=== PATIENT | male | born 1940 | race Caucasian/White ===

== ENCOUNTER 2020-05-18 13:15 | Outpatient (REF) | payer MEDICARE, SELFPAY ==
[2020-05-18 13:30] LABS: Glucose Urine UA NEG (NEG); Leukocyte Esterase Urine NEG (NEG); Nitrite Urine NEG (NEG); Urine Blood 3+ (NEG); Urine Ketones NEG (NEG); Urine Protein 1+ MG/DL (NEG-TRACE)
[2020-05-18 13:34] LABS: Appearance Urine HAZY; Color Urine DARK YELLOW
[2020-05-18 13:58] LABS: Bacteria Urine TRACE /LPF; RBC Urine TNTC /HPF (0); WBC Urine 0-2 /HPF (0-4)
== END 2020-05-18 13:16 | disposition home or self-care (01) ==
LOC: HO.LNP 13:15
PROVIDERS: Visit Provider Family Medicine
DX: R30.0 Dysuria (principal)
CPT/HCPCS: 81001; 87086

== ENCOUNTER 2020-07-17 18:50 | Outpatient (REF) | payer MEDICARE, SELFPAY ==
[2020-07-17 18:59] LABS: Glucose Urine UA NEG (NEG); Leukocyte Esterase Urine 2+ (NEG); Nitrite Urine POS (NEG); Specific Gravity - Urine 1.015 (1.005-1.025); Urine Blood 2+ (NEG); Urine Ketones 15 MG/DL (NEG); Urine Protein TRACE MG/DL (NEG-TRACE)
[2020-07-17 19:02] LABS: Appearance Urine CLOUDY; Color Urine YELLOW
[2020-07-17 19:09] LABS: Bacteria Urine 4+ /LPF; Squamous Epithelial Cell Urine 1+ /LPF
== END 2020-07-17 18:51 | disposition home or self-care (01) ==
LOC: HO.LNP 18:50
PROVIDERS: Visit Provider Family Medicine
DX: R30.0 Dysuria (principal)
CPT/HCPCS: 81001; 87086; 87088; 87186

== ENCOUNTER 2020-07-20 07:08 | Emergency (ER) | payer MEDICARE, SELFPAY ==
[2020-07-20 07:33] VITALS: BP 127/57; PULSE 94; RESP 16; TEMP 37.7; O2SAT 94; BMI 34.4
--- NOTE | 2020-07-20 08:21 | ED.MALEGU ---
HPI - Male Genitourinary General Chief complaint: Urogenital-Male Stated complaint: uti,fever Time Seen by Provider: 07/20/20 08:18 Source: patient and old records reviewed Mode of arrival: ambulatory Limitations: no limitations History of Present Illness HPI Narrative: dx with UTI on 07/17/20 started on bactrim culture grew E. Coli resistant to bactrim but susceptible to Ceftriaxone c/o fevers still MD Complaint: dysuria Onset (ago): day(s) (3) Duration: constant Severity: mild Quality: burning Relieving factors: none Exacerbating factors: none Context: new medication Associated symptoms: Reports fever and nausea/vomiting Related Data Home Medications Medication Instructions Recorded Confirmed metoprolol succinate 100 mg 150 mg PO BID 05/18/20 tablet,extended release 24 hr nifedipine 30 mg tablet,extended 30 mg PO DAILY 05/18/20 release pantoprazole 40 mg tablet,delayed 40 mg PO DAILY 05/18/20 release simvastatin 80 mg tablet 80 mg PO BEDTIME 05/18/20 Previous Rx's Medication Instructions Recorded sulfamethoxazole 800 1 tab PO Q12H 10 Days #20 tab 07/17/20 mg-trimethoprim 160 mg tablet tamsulosin 0.4 mg capsule 0.8 mg PO DAILY 30 Days #60 cap 07/17/20 cefuroxime axetil 250 mg PO BID 10 Days #20 tab 07/20/20 ondansetron 4 mg PO Q8H PRN #20 tab 07/20/20 Allergies Allergy/AdvReac Type Severity Reaction Status Date / Time morphine [MORPHINE] Allergy Severe CONFUSION Unverified 04/23/20 16:07 oxycodone [OXYCODONE] Allergy Severe CONFUSION Unverified 04/23/20 16:07 hydrochlorothiazide Allergy Mild MUSCLE Unverified 04/23/20 16:07 [Hydrochlorothiazide] CRAMPS, leg cramps lisinopril [From Zestril] Allergy Mild COUGH Unverified 04/23/20 16:07 amlodipine [From Norvasc] AdvReac Mild DIZZINESS Unverified 04/23/20 16:07 irbesartan [From Avapro] AdvReac Mild DIZZINESS Unverified 04/23/20 16:07 Review of Systems Review of Systems: Constitutional : pos Fever, pos Chills ENT/Mouth : No sore throat Eyes: No Eye Pain, No Swelling, No Redness Cardiovascular : No Chest Pain, No SOB Respiratory : No Cough, No Sputum, No Wheezing Gastrointestinal : pos Nausea, no Vomiting, No Diarrhea, no abdominal pain Genitourinary : positive Dysuria, positive urinary frequency, no Hematuria, no Flank Pain, positive hesitancy Musculoskeletal : No joint pain, No Myalgias Skin : No Skin Lesions, No rash Neuro : No Weakness, No Numbness, No Headache Psych : No Anxiety/Panic, No Depression Heme/Lymph: No Bruising, No Lymphadenopathy Endocrine : No Polyuria, No Polydipsia All other systems reviewed and are negative [facility] Past Medical History Attestation statement: The following information was validated with the patient. Medical History BPH (benign prostatic hyperplasia) CAD (coronary artery disease) High cholesterol UTI (urinary tract infection) Surgical History S/P triple vessel bypass Social History Social History Smoking Status: Former smoker Use of substances other than those prescribed or required for medical reasons: No Advance Directives: No Advance Directives Information Provided: Yes Physical Exam Vital Signs: Vital Signs: Last Vital Signs Temp 98.6 F 07/20/20 09:08 Pulse 76 07/20/20 09:08 Resp 16 07/20/20 09:08 BP 127/56 L 07/20/20 09:08 Pulse Ox 95 07/20/20 09:08 Body Mass Index 34.4 Appearance: Alert. Oriented X3. No acute distress. Eyes: Pupils equal, round and reactive to light. ENT: Pharynx normal. Neck: Normal inspection. Neck supple. CVS: Normal heart rate and rhythm. Pulses normal. Respiratory: No respiratory distress. Breath sounds normal. Abdomen: Soft and non-tender. Back: no CVA ttp Skin: Skin warm and dry. Normal skin color. Normal skin turgor. Extremities: No lower extremity edema. No calf ttp Neuro: Oriented X 3. No motor deficit. No sensory deficit. Course Course Course Narrative: patient has no signs of sepsis, negative, lactic acid, feels better can take oral medications, given reasons to return MDM - Male Genitourinary MDM Narrative Medical decision making narrative: 80 yo male with nausea, dysuria and on bactrim since 07/17 but culture R - still with fevers and symptoms will need labs, cultures, UA, IV Ceftriaxone, dispo per results and findings. Lab Data Result diagrams: 07/20/20 08:46 07/20/20 08:46 Labs: Lab Results 07/20/20 07/20/20 07/20/20 Range/Units 08:46 08:46 08:46 WBC 11.1 H (4.8-10.8) X10*3/uL RBC 4.43 L (4.60-5.80) X10*6/uL Hgb 13.7 L (14.0-18.0) g/dl Hct 39.3 L (42-52) % MCV 88.7 (80-98) fL MCH 30.9 (27.0-33.0) pg MCHC 34.9 (31.0-36.0) g/dl RDW 13.3 (11.0-16.0) % Plt Count 147 L (160-400) X10*3/uL MPV 9.7 (9.4-12.4) fL Immature Gran % (Auto) 0.6 H (0.0-0.4) % Neut % (Auto) 86.0 H (45-73) % Lymph % (Auto) 4.1 L (20-40) % [place] % (Auto) 9.0 (2-11) % Eos % (Auto) 0.1 (0-4) % Baso % (Auto) 0.2 (0-2) % Lymph # (Auto) 0.5 L (1.2-4.9) X10*3/uL [place] # (Auto) 1.0 (0.1-1.2) X10*3/uL Eos # (Auto) 0.0 (0.0-0.4) X10*3/uL Baso # (Auto) 0.0 (0.0-0.2) X10*3/uL Abs Immat Gran (auto) 0.07 H (0.00-0.03) X10*3/uL Absolute Neuts (auto) 9.5 H (2.0-8.3) X10*3/uL Absolute Nucleated RBC 0.000 (0.0-0.012) X10*3/uL Nucleated RBC % (auto) 0.0 (0.0-0.2) /100WBC Smear Tech's Comments VERIFIED Hold Blue Top SEE NOTE Sodium 136 (135-145) mmol/L Potassium 3.8 (3.3-5.1) mmol/l Chloride 102 (96-108) mmol/L Carbon Dioxide 23 (22-29) mmol/L Anion Gap 15 (12-20) BUN 25 H (9-16) mg/dL Creatinine 1.44 H (0.5-1.4) mg/dL Estim Creat Clear Calc 50.5 Estimated GFR 47 Random Glucose 127 H (60-115) mg/dL Lactic Acid (0.5-2.0) mmol/L Calcium 8.3 L (8.4-10.2) mg/dL Magnesium 2.1 (1.6-2.6) mg/dL Total Bilirubin 1.9 H (0.0-1.0) mg/dL Direct Bilirubin 0.8 H (0.0-0.5) mg/dL AST 58 H (5-37) U/L ALT 36 (0-40) U/L Alkaline Phosphatase 161 H (39-117) U/L Total Protein 6.1 L (6.5-8.0) g/dL Albumin 3.7 (3.5-5.0) g/dL Urine Color Urine Appearance Urine pH (5.0-8.0) Ur Specific [place] (1.005-1.025) Urine Protein (NEG-TRACE) MG/DL Urine Glucose (UA) (NEG) MG/DL Urine Ketones (NEG) MG/DL Urine Blood (NEG) Urine Nitrite (NEG) Ur Leukocyte Esterase (NEG) Urine RBC (0) /HPF Urine WBC (0-4) /HPF Ur Squamous Epith Cells /LPF Urine Bacteria /LPF Urine Mucus /LPF 07/20/20 07/20/20 Range/Units 08:46 09:28 WBC (4.8-10.8) X10*3/uL RBC (4.60-5.80) X10*6/uL Hgb (14.0-18.0) g/dl Hct (42-52) % MCV (80-98) fL MCH (27.0-33.0) pg MCHC (31.0-36.0) g/dl RDW (11.0-16.0) % Plt Count (160-400) X10*3/uL MPV (9.4-12.4) fL Immature Gran % (Auto) (0.0-0.4) % Neut % (Auto) (45-73) % Lymph % (Auto) (20-40) % [place] % (Auto) (2-11) % Eos % (Auto) (0-4) % Baso % (Auto) (0-2) % Lymph # (Auto) (1.2-4.9) X10*3/uL [place] # (Auto) (0.1-1.2) X10*3/uL Eos # (Auto) (0.0-0.4) X10*3/uL Baso # (Auto) (0.0-0.2) X10*3/uL Abs Immat Gran (auto) (0.00-0.03) X10*3/uL Absolute Neuts (auto) (2.0-8.3) X10*3/uL Absolute Nucleated RBC (0.0-0.012) X10*3/uL Nucleated RBC % (auto) (0.0-0.2) /100WBC Smear Tech's Comments Hold Blue Top Sodium (135-145) mmol/L Potassium (3.3-5.1) mmol/l Chloride (96-108) mmol/L Carbon Dioxide (22-29) mmol/L Anion Gap (12-20) BUN (9-16) mg/dL Creatinine (0.5-1.4) mg/dL Estim Creat Clear Calc Estimated GFR Random Glucose (60-115) mg/dL Lactic Acid 1.0 (0.5-2.0) mmol/L Calcium (8.4-10.2) mg/dL Magnesium (1.6-2.6) mg/dL Total Bilirubin (0.0-1.0) mg/dL Direct Bilirubin (0.0-0.5) mg/dL AST (5-37) U/L ALT (0-40) U/L Alkaline Phosphatase (39-117) U/L Total Protein (6.5-8.0) g/dL Albumin (3.5-5.0) g/dL Urine Color YELLOW Urine Appearance CLOUDY Urine pH 6.0 (5.0-8.0) Ur Specific [place] 1.025 (1.005-1.025) Urine Protein TRACE (NEG-TRACE) MG/DL Urine Glucose (UA) NEG (NEG) MG/DL Urine Ketones 5 (NEG) MG/DL Urine Blood 1+ H (NEG) Urine Nitrite POS H (NEG) Ur Leukocyte Esterase 2+ H (NEG) Urine RBC 0-2 (0) /HPF Urine WBC 76-150 H (0-4) /HPF Ur Squamous Epith Cells NONE /LPF Urine Bacteria 3+ /LPF Urine Mucus TRACE /LPF Discharge Plan Discharge Clinical Impression: Urinary tract infection Qualifiers: Urinary tract infection type: acute cystitis Hematuria presence: with hematuria Qualified Code(s): N30.01 - Acute cystitis with hematuria Patient Disposition: Home, Self-Care Additional Instructions: return to ED for any worsening symptoms or concerns STOP the bactrim it will not treat your infection. return for fevers, vomiting, not feeling better, and cannot tolerate antibiotics (ceftin). Prescriptions: New ondansetron 4 mg tablet,disintegrating 4 mg PO Q8H PRN (Reason: nausea and vomiting) Qty: 20 RF: 0 cefuroxime axetil 250 mg tablet 250 mg PO BID 10 Days Qty: 20 RF: 0 No Action metoprolol succinate 100 mg tablet extended release 24 hr 150 mg PO BID RF: 0 pantoprazole 40 mg tablet,delayed release (DR/EC) 40 mg PO DAILY RF: 0 simvastatin 80 mg tablet 80 mg PO BEDTIME RF: 0 nifedipine 30 mg tablet extended release 30 mg PO DAILY RF: 0 tamsulosin 0.4 mg capsule 0.8 mg PO DAILY 30 Days Qty: 60 RF: 2 sulfamethoxazole-trimethoprim [Bactrim DS] 800-160 mg tablet 1 tab PO Q12H 10 Days Qty: 20 RF: 0 Referrals: Yfn Tran MD [Primary Care Provider] - 2 days (if not better)
[2020-07-20] MEDS: ondansetron HCL 4 MG/2 ML VIAL IVPUSH (09:01)
[2020-07-20] MEDS: Acetaminophen 325 MG TABLET 650 MG PO (09:01)
[2020-07-20 09:02] LABS: Basophils Percent Auto 0.2 % (0-2); Eosinophils Percent Auto 0.1 % (0-4); Hematocrit 39.3 % (42-52); Imm Gran Abs Auto 0.07 X10*3/uL (0.00-0.03); Imm Gran Pct Auto 0.6 % (0.0-0.4); Lymphocytes Absolute Auto 0.5 X10*3/uL (1.2-4.9); Lymphocytes Percent Auto 4.1 % (20-40); MANUAL DIFF FLAG SCAN; Mean Corpuscular HGB Conc 34.9 g/dl (31.0-36.0); Mean Corpuscular Hemoglobin 30.9 pg (27.0-33.0); Mean Corpuscular Volume 88.7 fL (80-98); Mean Platelet Volume 9.7 fL (9.4-12.4); Neutrophils Absolute Auto 9.5 X10*3/uL (2.0-8.3); Platelet Count 147 X10*3/uL (160-400); Red Blood Count 4.43 X10*6/uL (4.60-5.80); Red Cell Distribution Width 13.3 % (11.0-16.0); SCAN SMEAR FLAG 1; White Blood Count 11.1 X10*3/uL (4.8-10.8)
[2020-07-20] MEDS: cefTRIAXone sodium 1 GM in 0.9 % Sodium Chloride 50 ML IV (09:02)
[2020-07-20] MEDS: 0.9 % Sodium Chloride 1,000 ML 999 ML IVCONT (09:02)
[2020-07-20 09:06] LABS: Hemoglobin 13.7 g/dl (14.0-18.0)
[2020-07-20 09:08] VITALS: BP 127/56; PULSE 76; RESP 16; TEMP 37; O2SAT 95
[2020-07-20 09:30] LABS: Alanine Aminotransferase 36 U/L (0-40); Albumin Level 3.7 g/dL (3.5-5.0); Alkaline Phosphatase 161 U/L (39-117); Anion Gap 15 (12-20); Aspartate Amino Transferase 58 U/L (5-37); Bilirubin Direct 0.8 mg/dL (0.0-0.5); Bilirubin Total 1.9 mg/dL (0.0-1.0); Blood Urea Nitrogen 25 mg/dL (9-16); Calcium 8.3 mg/dL (8.4-10.2); Carbon Dioxide 23 mmol/L (22-29); Chloride 102 mmol/L (96-108); Creatinine Clr Calc Pharmacy 50.5; Estimated Glomerular Filt Rate 47; Glucose Random 127 mg/dL (60-115); Magnesium 2.1 mg/dL (1.6-2.6); Potassium 3.8 mmol/l (3.3-5.1); Sodium 136 mmol/L (135-145); Total Protein 6.1 g/dL (6.5-8.0)
[2020-07-20 09:36] LABS: Appearance Urine CLOUDY; Color Urine YELLOW; Glucose Urine UA NEG (NEG); Leukocyte Esterase Urine 2+ (NEG); Nitrite Urine POS (NEG); Specific Gravity - Urine 1.025 (1.005-1.025); Urine Blood 1+ (NEG); Urine Ketones 5 MG/DL (NEG); Urine Protein TRACE MG/DL (NEG-TRACE)
[2020-07-20 09:44] LABS: Bacteria Urine 3+ /LPF; Mucus Urine TRACE /LPF; RBC Urine 0-2 /HPF (0)
[2020-07-20 09:46] LABS: SLIDE REVIEW VERIFIED
== END 2020-07-20 11:14 | disposition home or self-care (01) ==
PROVIDERS: Emergency Provider Emergency Medicine; PCP Family Medicine
DX: N30.01 Acute cystitis with hematuria (principal); I10 Essential (primary) hypertension
CPT/HCPCS: 36415; 80048; 80076; 81001; 83605; 83735; 85025; 87040; 87077; 87086; 87088; 87186; 96361; 96365; 96374; 96375; 99284; J0696; J2405

== ENCOUNTER 2020-07-21 09:45 | Inpatient (IN) | payer MEDICARE, SELFPAY ==
[2020-07-21] VITALS (7 sets, daily range): BP systolic 137–172; BP diastolic 50–75; PULSE 73–87; RESP 15–20; TEMP 36.4–37.2; O2SAT 95–96; BMI 34.4
--- NOTE | 2020-07-21 10:02 | ED.RECABL ---
HPI - Recheck/Abnormal Lab/Rx General Chief Complaint: Recheck/Abnormal Lab/Rx Stated Complaint: abnormal labs Time Seen by Provider: 07/21/20 10:02 Source: patient Mode of arrival: ambulatory Limitations: no limitations History of Present Illness HPI narrative: patient seen yesterday with fever and UTI and hematuria Now with blood cultures positive for gram negative rods. Last night had fever to 102, frequency and incontinence Initial visit (ago): day(s) Initial visit for: other (urinary tract infection) Description of abnormal result: gram negative rods in the blood Associated symptoms: fever and chills Related Data Home Medications Medication Instructions Recorded Confirmed metoprolol succinate 100 mg 150 mg PO BID 05/18/20 07/21/20 tablet,extended release 24 hr pantoprazole 40 mg tablet,delayed 40 mg PO DAILY 05/18/20 07/21/20 release simvastatin 80 mg tablet 80 mg PO BEDTIME 05/18/20 07/21/20 aspirin 81 mg PO DAILY 07/21/20 07/21/20 Previous Rx's Medication Instructions Recorded sulfamethoxazole 800 1 tab PO Q12H 10 Days #20 tab 07/17/20 mg-trimethoprim 160 mg tablet tamsulosin 0.4 mg capsule 0.8 mg PO DAILY 30 Days #60 cap 07/17/20 cefuroxime axetil 250 mg PO BID 10 Days #20 tab 07/20/20 ondansetron 4 mg PO Q8H PRN #20 tab 07/20/20 Allergies Allergy/AdvReac Type Severity Reaction Status Date / Time morphine [MORPHINE] Allergy Severe CONFUSION Verified 07/21/20 11:24 oxycodone [OXYCODONE] Allergy Severe CONFUSION Verified 07/21/20 11:24 hydrochlorothiazide Allergy Mild MUSCLE Verified 07/21/20 11:24 [Hydrochlorothiazide] CRAMPS, leg cramps lisinopril [From Zestril] Allergy Mild COUGH Verified 07/21/20 11:24 amlodipine [From Norvasc] AdvReac Mild DIZZINESS Verified 07/21/20 11:24 irbesartan [From Avapro] AdvReac Mild DIZZINESS Verified 07/21/20 11:24 Review of Systems Constitutional: Constitutional: Reports no additional constitutional complaints Eyes: Eyes: Reports no additional eye complaints ENT: Denies dizziness Cardiovascular: Cardiovascular: Reports no additional cardiovascular complaints Respiratory: Respiratory: Reports as per HPI Gastrointestinal: Gastrointestinal: Reports no additional gastrointestinal complaints Musculoskeletal: Musculoskeletal: Reports no additional musculoskeletal complaints Integumentary/Breasts: Skin/Breast: Denies rash Neurologic: Reports system reviewed and no additional complaints, except as documented, Denies dizziness and Denies Sensory deficit (Neuro) Psychiatric: Psychiatric: Denies anxiety [facility] Past Medical History Medical History BPH (benign prostatic hyperplasia) CAD (coronary artery disease) High cholesterol UTI (urinary tract infection) Surgical History S/P triple vessel bypass Social History Social History Smoking Status: Never smoker Use of substances other than those prescribed or required for medical reasons: No Advance Directives: No Advance Directives Information Provided: No Physical Exam Vital Signs: Vital Signs: Last Vital Signs Temp 98.9 F 07/21/20 11:22 Pulse 73 07/21/20 11:22 Resp 16 07/21/20 11:22 BP 145/65 H 07/21/20 11:22 Pulse Ox 95 07/21/20 11:22 Body Mass Index 34.4 Const: General: healthy appearing Nutritional Appearance: average body habitus Orientation/consciousness: oriented to person and patient oriented x3 Limitations: no limitations HENMT: Head: Yes normal to inspection Ears: external ears normal General nose exam: Normal external nose present Mouth: Normal oral and palatal mucosa present and oropharynx normal Throat: Yes posterior oropharynx normal Eyes: General: appearance normal, both eyes and all related structures Neck: Other: supple Neck: Yes normal visual inspection Chest: Chest palpation & inspection: normal inspection of the chest Resp: Auscultation: clear to auscultation bilaterally Cardio: Jugular venous distension: no JVD Rate: regular rate Rhythm: regular rhythm Heart sounds: S1 normal heart sound present and S2 normal heart sound present GI: Inspection: Yes normal to inspection Palpation (GI): Soft to palpation, nontender and No hepatosplenomegaly present Auscultation: normal bowel sounds : General: Yes no CVA tenderness Back/Spine/Pelvis: Back: no CVA tenderness Skin: General skin exam: no rashes or lesions noted Neuro: General: oriented to person and patient oriented x3 Cranial nerves: Yes CN's II-XII intact bilaterally Motor exam (neuro): 5/5 motor strength present throughout Sensory Exam: No Sensory deficit (Neuro) Extrem: General: Yes normal to inspection Psych: Appearance: grossly normal Course Course Course Narrative: no evidence of sepsis will admit for gram negative bacteremia MDM - Recheck/Abnormal Lab/Rx MDM Narrative Medical decision making narrative: Gram negative bacteremia Lab Data Result diagrams: 07/21/20 11:16 07/21/20 11:17 Labs: Lab Results 07/21/20 07/21/20 07/21/20 Range/Units 11:16 11:16 11:16 WBC 7.3 (4.8-10.8) X10*3/uL RBC 4.40 L (4.60-5.80) X10*6/uL Hgb 13.4 L (14.0-18.0) g/dl Hct 40.2 L (42-52) % MCV 91.4 (80-98) fL MCH 30.5 (27.0-33.0) pg MCHC 33.3 (31.0-36.0) g/dl RDW 13.9 (11.0-16.0) % Plt Count 153 L (160-400) X10*3/uL MPV 9.7 (9.4-12.4) fL Immature Gran % (Auto) 0.5 H (0.0-0.4) % Neut % (Auto) 72.2 (45-73) % Lymph % (Auto) 11.5 L (20-40) % [place] % (Auto) 14.0 H (2-11) % Eos % (Auto) 1.4 (0-4) % Baso % (Auto) 0.4 (0-2) % Lymph # (Auto) 0.8 L (1.2-4.9) X10*3/uL [place] # (Auto) 1.0 (0.1-1.2) X10*3/uL Eos # (Auto) 0.1 (0.0-0.4) X10*3/uL Baso # (Auto) 0.0 (0.0-0.2) X10*3/uL Abs Immat Gran (auto) 0.04 H (0.00-0.03) X10*3/uL Absolute Neuts (auto) 5.3 (2.0-8.3) X10*3/uL Absolute Nucleated RBC 0.000 (0.0-0.012) X10*3/uL Nucleated RBC % (auto) 0.0 (0.0-0.2) /100WBC PT 13.6 H (10.8-13.0) SEC INR 1.1 (0.9-1.1) APTT 31.9 (24.1-38.0) SEC Sodium (135-145) mmol/L Potassium (3.3-5.1) mmol/l Chloride (96-108) mmol/L Carbon Dioxide (22-29) mmol/L Anion Gap (12-20) BUN (9-16) mg/dL Creatinine (0.5-1.4) mg/dL Estim Creat Clear Calc Estimated GFR Random Glucose (60-115) mg/dL Lactic Acid 1.6 (0.5-2.0) mmol/L Calcium (8.4-10.2) mg/dL Total Bilirubin (0.0-1.0) mg/dL COVID-19 (LAY) (Negative) COVID-19 Clin Com 07/21/20 07/21/20 Range/Units 11:17 12:02 WBC (4.8-10.8) X10*3/uL RBC (4.60-5.80) X10*6/uL Hgb (14.0-18.0) g/dl Hct (42-52) % MCV (80-98) fL MCH (27.0-33.0) pg MCHC (31.0-36.0) g/dl RDW (11.0-16.0) % Plt Count (160-400) X10*3/uL MPV (9.4-12.4) fL Immature Gran % (Auto) (0.0-0.4) % Neut % (Auto) (45-73) % Lymph % (Auto) (20-40) % [place] % (Auto) (2-11) % Eos % (Auto) (0-4) % Baso % (Auto) (0-2) % Lymph # (Auto) (1.2-4.9) X10*3/uL [place] # (Auto) (0.1-1.2) X10*3/uL Eos # (Auto) (0.0-0.4) X10*3/uL Baso # (Auto) (0.0-0.2) X10*3/uL Abs Immat Gran (auto) (0.00-0.03) X10*3/uL Absolute Neuts (auto) (2.0-8.3) X10*3/uL Absolute Nucleated RBC (0.0-0.012) X10*3/uL Nucleated RBC % (auto) (0.0-0.2) /100WBC PT (10.8-13.0) SEC INR (0.9-1.1) APTT (24.1-38.0) SEC Sodium 139 (135-145) mmol/L Potassium 4.0 (3.3-5.1) mmol/l Chloride 103 (96-108) mmol/L Carbon Dioxide 27 (22-29) mmol/L Anion Gap 13 (12-20) BUN 24 H (9-16) mg/dL Creatinine 1.29 (0.5-1.4) mg/dL Estim Creat Clear Calc 56.4 Estimated GFR 54 Random Glucose 102 (60-115) mg/dL Lactic Acid (0.5-2.0) mmol/L Calcium 8.4 (8.4-10.2) mg/dL Total Bilirubin 1.4 H (0.0-1.0) mg/dL COVID-19 (LAY) Negative (Negative) COVID-19 Clin Com See Note Discharge Plan Discharge Clinical Impression: Gram-negative bacteremia Urinary tract infection Qualifiers: Urinary tract infection type: acute cystitis Hematuria presence: with hematuria Qualified Code(s): N30.01 - Acute cystitis with hematuria Patient Disposition: Admitted As Inpatient
[2020-07-21] MEDS: cefTRIAXone sodium 1 GM in 0.9 % Sodium Chloride 100 ML IV (11:03)
[2020-07-21 11:22] LABS: MANUAL DIFF FLAG NO
[2020-07-21 11:26] LABS: Basophils Percent Auto 0.4 % (0-2); Eosinophils Absolute Auto 0.1 X10*3/uL (0.0-0.4); Eosinophils Percent Auto 1.4 % (0-4); Hematocrit 40.2 % (42-52); Hemoglobin 13.4 g/dl (14.0-18.0); Imm Gran Abs Auto 0.04 X10*3/uL (0.00-0.03); Imm Gran Pct Auto 0.5 % (0.0-0.4); Lymphocytes Absolute Auto 0.8 X10*3/uL (1.2-4.9); Lymphocytes Percent Auto 11.5 % (20-40); Mean Corpuscular HGB Conc 33.3 g/dl (31.0-36.0); Mean Corpuscular Hemoglobin 30.5 pg (27.0-33.0); Mean Corpuscular Volume 91.4 fL (80-98); Mean Platelet Volume 9.7 fL (9.4-12.4); Neutrophils Absolute Auto 5.3 X10*3/uL (2.0-8.3); Neutrophils Percent Auto 72.2 % (45-73); Platelet Count 153 X10*3/uL (160-400); Red Cell Distribution Width 13.9 % (11.0-16.0); White Blood Count 7.3 X10*3/uL (4.8-10.8)
[2020-07-21 11:38] LABS: INTERNATIONAL NORM RATIO 1.1 (0.9-1.1); Prothrombin Time 13.6 SEC (10.8-13.0)
[2020-07-21 11:40] LABS: Partial Thromboplastin Time 31.9 SEC (24.1-38.0)
[2020-07-21 11:48] LABS: Lactic Acid 1.6 mmol/L (0.5-2.0)
[2020-07-21 11:53] LABS: Anion Gap 13 (12-20); Bilirubin Total 1.4 mg/dL (0.0-1.0); Blood Urea Nitrogen 24 mg/dL (9-16); Calcium 8.4 mg/dL (8.4-10.2); Carbon Dioxide 27 mmol/L (22-29); Chloride 103 mmol/L (96-108); Creatinine Clr Calc Pharmacy 56.4; Estimated Glomerular Filt Rate 54; Glucose Random 102 mg/dL (60-115); Sodium 139 mmol/L (135-145)
--- NOTE | 2020-07-21 11:54 | PC.NURSE ---
introduced self to pt, denies any pain, only inc frequency & discomfort on urination. afebrile. #20 in L ac, fluids running with abt. aware of plan for admission. all specimens collected
[2020-07-21 12:22] LABS: COVID-19 Test Negative (Negative)
--- NOTE | 2020-07-21 14:29 | PC.NURSE ---
CALLED UP TO MED SURG FOR REPORT
--- NOTE | 2020-07-21 15:22 | PC.NURSE ---
Report to [facility] on S3.
--- NOTE | 2020-07-21 16:20 | PM.EVENT ---
Event Note Date of Service: 07/21/20 Event Note: Attending admission note Patient seen and examined. Case discussed with Jyotsna Caceres NP. Agree with her history and physical. This is a 80-year-old gentleman who presents to the emergency room after he was called back for positive blood cultures. He reports that about 4 days ago he was started on p.o. Bactrim for urinary tract infection but continued to feel worse and so he presented to the emergency room yesterday. There was noticed that his urine grew E coli which was resistant to Bactrim. He was given treatment in the emergency room and sent home on oral antibiotics but now called back today after his blood cultures came back positive. Will admit for IV antibiotics Recheck blood cultures No evidence of sepsis at this time remainder per H&P
[2020-07-21] MEDS: 0.9 % Sodium Chloride Flush 3 ML SYRINGE IVFLUSH (19:16)
[2020-07-21] MEDS: Heparin Sodium,Porcine 5,000 UNIT/ML VIAL 5000 UNIT SUBCUT (19:45)
[2020-07-21] MEDS: Tamsulosin HCL 0.4 MG CAPSULE 0.8 MG PO (19:45)
[2020-07-21] MEDS: Metoprolol Succinate ER 100 MG TAB.ER.24H 150 MG PO (21:43)
[2020-07-21] MEDS: Atorvastatin Calcium 40 MG TABLET PO (21:45)
[2020-07-22] VITALS (7 sets, daily range): BP systolic 136–164; BP diastolic 55–82; PULSE 71–81; RESP 18–20; TEMP 36.4–36.8; O2SAT 94–97; BMI 34.4
[2020-07-22] MEDS: 0.9 % Sodium Chloride Flush 3 ML SYRINGE IVFLUSH ×4 (01:07→23:35)
[2020-07-22] MEDS: Omeprazole 20 MG CAPSULE.DR PO (06:37)
[2020-07-22] MEDS: Heparin Sodium,Porcine 5,000 UNIT/ML VIAL 5000 UNIT SUBCUT ×2 (06:37→17:20)
[2020-07-22] MEDS: Aspirin Enteric Coated 81 MG TABLET.DR PO (08:59)
[2020-07-22 09:00] LABS: MANUAL DIFF FLAG NO
[2020-07-22 09:37] LABS: Anion Gap 14 (12-20); Blood Urea Nitrogen 20 mg/dL (9-16); Calcium 8.1 mg/dL (8.4-10.2); Carbon Dioxide 21 mmol/L (22-29); Chloride 106 mmol/L (96-108); Estimated Glomerular Filt Rate > 60; Glucose Random 98 mg/dL (60-115); Sodium 137 mmol/L (135-145)
--- NOTE | 2020-07-22 10:18 | MHC.CM.PN ---
PATIENT LIVES WITH /HCP IS IS FULLY INDEPENDENT. NO HCP ON FILE AND A COPY IS REQUESTED. NO DME OR VNA SERVICES. WILL TRANSPORT PATIENT HOME AT TIME OF DISCHARGE. CURRENT PLAN TO BE DETERMINED. PATIENT BELIEVES HE MAY BE GETTING A PICC LINE, BUT HAS NOT HEARD YET. CASE MANAGEMENT FOLLOWING. IMM 07/22 IN CHART.
[2020-07-22] MEDS: Metoprolol Succinate ER 100 MG TAB.ER.24H 150 MG PO ×2 (10:29→22:19)
[2020-07-22 10:42] LABS: Basophils Percent Auto 0.5 % (0-2); Eosinophils Absolute Auto 0.2 X10*3/uL (0.0-0.4); Eosinophils Percent Auto 2.6 % (0-4); Hematocrit 38.7 % (42-52); Hemoglobin 12.9 g/dl (14.0-18.0); Imm Gran Abs Auto 0.05 X10*3/uL (0.00-0.03); Imm Gran Pct Auto 0.6 % (0.0-0.4); Lymphocytes Absolute Auto 1.3 X10*3/uL (1.2-4.9); Lymphocytes Percent Auto 15.5 % (20-40); Mean Corpuscular HGB Conc 33.3 g/dl (31.0-36.0); Mean Corpuscular Hemoglobin 30.1 pg (27.0-33.0); Mean Corpuscular Volume 90.4 fL (80-98); Monocytes Absolute Auto 1.1 X10*3/uL (0.1-1.2); Monocytes Percent Auto 12.9 % (2-11); Neutrophils Absolute Auto 5.5 X10*3/uL (2.0-8.3); Neutrophils Percent Auto 67.9 % (45-73); Platelet Count 161 X10*3/uL (160-400); Red Blood Count 4.28 X10*6/uL (4.60-5.80); White Blood Count 8.1 X10*3/uL (4.8-10.8)
[2020-07-22] MEDS: cefTRIAXone sodium 1 GM in 0.9 % Sodium Chloride 50 ML IV (11:17)
--- NOTE | 2020-07-22 12:25 | HO.PM.IMPN ---
Subjective Subjective Date of Service: 07/22/20 Interval History: seen and examined feeling good, dysuria improving ROS General - no fevers or chills Cardiovascular - no chest pain Respiratory - no shortness of breath or cough Abdominal- no abdominal pain, nausea, vomiting, diarrhea Physical Exam Vital Signs: Vital Signs: Last Vital Signs Temp 98.2 F 07/22/20 12:00 Pulse 73 07/22/20 12:00 Resp 18 07/22/20 12:00 BP 159/82 H 07/22/20 12:00 Pulse Ox 94 07/22/20 12:00 Body Mass Index 34.4 Const: Other: General - no acute distress, appears comfortable Cardiovascular - regular rate and rhythm, S1-S2 Lungs - normal respiratory effort, clear to auscultation bilaterally, no wheezing Abdomen - soft, nontender, no rebound or guarding Extremities - no edema bilaterally Neuro - awake and alert, no focal deficits Objective Data Current Medications Generic Name Dose Route Start Last Admin Trade Name Freq PRN Reason Stop Dose Admin Acetaminophen 650 mg 07/21/20 17:08 Acetaminophen 325 Mg Tablet PO Q6H PRN Pain, Mild (Pain Scale 1-3) Aspirin 81 mg 07/22/20 09:00 07/22/20 08:59 Aspirin Enteric Coated 81 Mg Tablet. PO 81 mg DAILY YARA Administration Atorvastatin Calcium 40 mg 07/21/20 21:00 07/21/20 21:45 Atorvastatin Calcium 40 Mg Tablet PO 40 mg BEDTIME YARA Administration Heparin Sodium (Porcine) 5,000 unit 07/21/20 18:00 07/22/20 06:37 Heparin Sodium,Porcine 5,000 Unit/Ml Vial SUBCUT 5,000 unit Q12H YARA Administration Ceftriaxone Sodium 1 gm/ 50 mls @ 100 mls/hr 07/22/20 11:00 07/22/20 11:47 Sodium Chloride IV Infused Q24H YARA Infusion Metoprolol Succinate 150 mg 07/21/20 21:00 07/22/20 10:29 Metoprolol Succinate Er 100 Mg Tab.Er.24h PO 150 mg BID YARA Administration Protocol Omeprazole 20 mg 07/22/20 06:30 07/22/20 06:37 Omeprazole 20 Mg Capsule. PO 20 mg DAILY@0630 YARA Administration Ondansetron HCl 4 mg 07/21/20 17:08 Ondansetron Hcl 4 Mg/2 Ml Vial IVPUSH Q8H PRN Nausea and Vomiting Pharmacy Consult 1 each 07/21/20 12:45 Consult Rx Perform Med Rec MISCELLANE ONCE PRN Consult order Sodium Chloride 3 ml 07/21/20 17:08 07/22/20 08:59 0.9 % Sodium Chloride Flush 3 Ml Syringe IVFLUSH 3 ml QSHIFT YARA Administration Tamsulosin HCl 0.8 mg 07/21/20 19:30 07/21/20 19:45 Tamsulosin Hcl 0.4 Mg Capsule PO 0.8 mg DAILY@1800 YARA Administration Labs CBC & Chem 7: 07/22/20 07:54 07/22/20 07:54 Assessment and Plan (1) Gram-negative bacteremia: Status: Acute Assessment and Plan: This is a 80 y M who was called back for GNB. 1. GNB likely urine source rocephin f/u final source ID input appreciated 2. E. Coli rocephin for now 3. BPH flomax continue other chronic meds Full Code DVT pptx, subcut. heparin
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
--- NOTE | 2020-07-22 16:22 | HP_ITS ---
DATE OF SERVICE: 07/21/2020 CHIEF COMPLAINT: Abnormal labs. HISTORY OF PRESENT ILLNESS: An 80-year-old man presented to the ER due to abnormal blood cultures. He had presented to the ER on July 20. At that time, he had complaints of fever due to UTI. He was started on Bactrim. He was called back, because blood cultures came back as gram-negative rods. He reported having some fevers at home. He denies any nausea, vomiting, diarrhea. His labs all appeared to be within acceptable limits. He has no leukocytosis or noted fever while he has been here in the ER. He was given a dose of IV ceftriaxone and 30 mL/kg IV fluid bolus in the ER. He will be admitted for further management and treatment of gram-negative bacteremia. PAST MEDICAL HISTORY: 1. Hypertension. 2. Hyperlipidemia. 3. Bilateral cataract surgery. 4. BPH. 5. Hemorrhoidectomy. 6. Fractured left metacarpal. 7. Pilonidal cyst. 8. Right inguinal hernia surgery. SOCIAL HISTORY: . Denies alcohol, tobacco, illicit drug use. FAMILY HISTORY: Father of esophageal cancer. ALLERGIES: MORPHINE, OXYCODONE, HYDROCHLOROTHIAZIDE, LISINOPRIL, AMLODIPINE, IRBESARTAN. MEDICATIONS: 1. Aspirin 81 mg p.o. daily. 2. Metoprolol succinate 100 mg daily. 3. Ondansetron 4 mg p.o. q.8 hours p.r.n. for nausea. 4. Pantoprazole 40 mg p.o. daily. 5. Simvastatin 80 mg p.o. at bedtime. 6. Tamsulosin 0.8 mg p.o. daily. REVIEW OF SYSTEMS: GENERAL: Reported fever. No chills or decrease in appetite. RESPIRATORY: Denies any shortness of breath, cough, or sputum production. CARDIOVASCULAR: Denies any chest pain, orthopnea, PND, or edema. GASTROINTESTINAL: Denies any dysphagia, abdominal pain, nausea, vomiting, or diarrhea. GENITOURINARY: Reported some dysuria; however, this has improved. NEURO: Denies any weakness, seizures. All other systems are reviewed and are negative. PHYSICAL EXAMINATION: CONSTITUTIONAL: Resting in bed. No acute distress. VITAL SIGNS: 98.9, 73, 16, 145/65. HEENT: Head is normocephalic, atraumatic. Eyes; pupils are PERRLA. Sclerae anicteric. Mouth and throat, mucous membranes are intact and moist. NECK: Supple. No lymphadenopathy. No JVD noted. CHEST: Clear to auscultation without wheeze, rhonchi, or rales. HEART: Regular rate and rhythm. Clear S1, S2. No murmurs, rubs, or gallops. ABDOMEN: Positive bowel sounds. Soft, nontender. No hepatomegaly or splenomegaly noted. NEURO: The patient is alert and oriented x3. Cranial nerves II through XII are grossly intact without focal deficits. LABORATORY DATA: WBC 7.3, hemoglobin 13.4, hematocrit 40.2, platelets 153. Sodium is 139, potassium 4.0, chloride is 103, bicarb is 27, BUN is 24, creatinine is 1.29, total bilirubin is 1.4: COVID-19 negative. ASSESSMENT AND PLAN: An 80-year-old man, who is being admitted with gram-negative bacteremia. He had previous blood cultures obtained several days ago and had been on Bactrim. He will be admitted for IV antibiotics. 1. Gram-negative bacteremia secondary to urinary tract infection. We will treat with Rocephin. ID consultation. No sepsis. 2. History of coronary artery disease. Continue aspirin, statin, and beta timothy. 3. History of benign prostatic hyperplasia. Continue tamsulosin. 4. Deep vein thrombosis prophylaxis with heparin. 5. Case discussed with Dr. Mock. 6. Full code. GRACIA Schmidt MD JR/KAREEM / [id number]
[2020-07-22] MEDS: Tamsulosin HCL 0.4 MG CAPSULE 0.8 MG PO (17:21)
[2020-07-22] MEDS: Atorvastatin Calcium 40 MG TABLET PO (22:17)
[2020-07-23 04:00] VITALS: BP 131/52; PULSE 79; RESP 20; TEMP 36.6; O2SAT 95
[2020-07-23] MEDS: Omeprazole 20 MG CAPSULE.DR PO (05:33)
[2020-07-23] MEDS: Heparin Sodium,Porcine 5,000 UNIT/ML VIAL 5000 UNIT SUBCUT (05:33)
[2020-07-23 08:00] VITALS: BP 169/80; PULSE 70; RESP 17; TEMP 36.2; O2SAT 94
[2020-07-23 08:58] VITALS: BP 169/80; PULSE 70
[2020-07-23] MEDS: Aspirin Enteric Coated 81 MG TABLET.DR PO (08:58)
[2020-07-23] MEDS: Metoprolol Succinate ER 100 MG TAB.ER.24H 150 MG PO (08:58)
[2020-07-23] MEDS: 0.9 % Sodium Chloride Flush 3 ML SYRINGE IVFLUSH (09:04)
--- NOTE | 2020-07-23 11:06 | MHC.CM.PN ---
HOME TODAY NO SERVICES NEEDED. RN AWARE OF PLAN.
[2020-07-23 11:48] VITALS: BP 150/61; PULSE 96; RESP 18; TEMP 36.2; O2SAT 96
[2020-07-23] MEDS: cefTRIAXone sodium 1 GM in 0.9 % Sodium Chloride 50 ML IV (12:04)
--- NOTE | 2020-07-23 14:16 | PM.DS ---
DS: Providers Provider Date of admission: 07/21/20 13:46 Primary care physician: Yfn Tran. MD Consults: 07/21/20 17:08 Consult to Infectious Diseases Routine Consulting Provider: Anne Skaggs Reason for consultation: gram neg bacteremia Has provider been notified: No DS: Diagnosis Discharge Diagnosis (1) Gram-negative bacteremia: Status: Acute (2) Urinary tract infection: Status: Acute DS: Medications Discharge Medications Home Medications: Home Medications Medication Instructions Recorded Confirmed metoprolol succinate 100 mg 150 mg PO BID 05/18/20 07/21/20 tablet,extended release 24 hr pantoprazole 40 mg tablet,delayed 40 mg PO DAILY 05/18/20 07/21/20 release simvastatin 80 mg tablet 80 mg PO BEDTIME 05/18/20 07/21/20 aspirin 81 mg PO DAILY 07/21/20 07/21/20 Previous Rx's Medication Instructions Recorded tamsulosin 0.4 mg capsule 0.8 mg PO DAILY 30 Days #60 cap 07/17/20 ondansetron 4 mg PO Q8H PRN #20 tab 07/20/20 levofloxacin 500 mg PO DAILY #14 tab 07/23/20 DS: Summary Hospital Course Hospital Course: Patient was admitted for Gram-negative bacteremia and started on IV ceftriaxone. His blood cultures which were collected on the day prior to admission while in the emergency room returned positive 1/2 for E coli which was sensitive to Levaquin and cephalosporins. Infectious Disease was consulted who recommended 14 days of Levaquin. Patient will be discharged home on Levaquin 500 mg p.o. daily for 14 days. Repeat blood cultures collected on the time of admission are negative today. Time Spent with Patient Time attestation: Total time spent providing and/or coordinating discharge services: Physical Exam Vital Signs: Vital Signs: Last Vital Signs Temp 97.2 F 07/23/20 11:48 Pulse 96 07/23/20 11:48 Resp 18 07/23/20 11:48 BP 150/61 H 07/23/20 11:48 Pulse Ox 96 07/23/20 11:48 Body Mass Index 34.4 Const: Other: General - no acute distress, appears comfortable Cardiovascular - regular rate and rhythm, S1-S2 Lungs - normal respiratory effort, clear to auscultation bilaterally, no wheezing Abdomen - soft, nontender, no rebound or guarding Extremities - no edema bilaterally Neuro - awake and alert, no focal deficits DS: Data Data Completed and Pending Labs on day of discharge: Laboratory Last Values WBC 8.1 X10*3/uL (4.8-10.8) 07/22/20 07:54 RBC 4.28 X10*6/uL (4.60-5.80) L 07/22/20 07:54 Hgb 12.9 g/dl (14.0-18.0) L 07/22/20 07:54 Hct 38.7 % (42-52) L 07/22/20 07:54 MCV 90.4 fL (80-98) 07/22/20 07:54 MCH 30.1 pg (27.0-33.0) 07/22/20 07:54 MCHC 33.3 g/dl (31.0-36.0) 07/22/20 07:54 RDW 14.0 % (11.0-16.0) 07/22/20 07:54 Plt Count 161 X10*3/uL (160-400) 07/22/20 07:54 MPV 10.0 fL (9.4-12.4) 07/22/20 07:54 Immature Gran % (Auto) 0.6 % (0.0-0.4) H 07/22/20 07:54 Neut % (Auto) 67.9 % (45-73) 07/22/20 07:54 Lymph % (Auto) 15.5 % (20-40) L 07/22/20 07:54 [place] % (Auto) 12.9 % (2-11) H 07/22/20 07:54 Eos % (Auto) 2.6 % (0-4) 07/22/20 07:54 Baso % (Auto) 0.5 % (0-2) 07/22/20 07:54 Lymph # (Auto) 1.3 X10*3/uL (1.2-4.9) 07/22/20 07:54 [place] # (Auto) 1.1 X10*3/uL (0.1-1.2) 07/22/20 07:54 Eos # (Auto) 0.2 X10*3/uL (0.0-0.4) 07/22/20 07:54 Baso # (Auto) 0.0 X10*3/uL (0.0-0.2) 07/22/20 07:54 Abs Immat Gran (auto) 0.05 X10*3/uL (0.00-0.03) H 07/22/20 07:54 Absolute Neuts (auto) 5.5 X10*3/uL (2.0-8.3) 07/22/20 07:54 Absolute Nucleated RBC 0.000 X10*3/uL (0.0-0.012) 07/22/20 07:54 Nucleated RBC % (auto) 0.0 /100WBC (0.0-0.2) 07/22/20 07:54 PT 13.6 SEC (10.8-13.0) H 07/21/20 11:16 INR 1.1 (0.9-1.1) 07/21/20 11:16 APTT 31.9 SEC (24.1-38.0) 07/21/20 11:16 Sodium 137 mmol/L (135-145) 07/22/20 07:54 Potassium 4.0 mmol/l (3.3-5.1) 07/22/20 07:54 Chloride 106 mmol/L (96-108) 07/22/20 07:54 Carbon Dioxide 21 mmol/L (22-29) L 07/22/20 07:54 Anion Gap 14 (-20) 07/22/20 07:54 BUN 20 mg/dL (9-16) H 07/22/20 07:54 Creatinine 0.97 mg/dL (0.5-1.4) 07/22/20 07:54 Estim Creat Clear Calc 75.0 07/22/20 07:54 Estimated GFR > 60 07/22/20 07:54 Random Glucose 98 mg/dL (60-115) 07/22/20 07:54 Lactic Acid 1.6 mmol/L (0.5-2.0) 07/21/20 11:16 Calcium 8.1 mg/dL (8.4-10.2) L 07/22/20 07:54 Total Bilirubin 1.4 mg/dL (0.0-1.0) H 07/21/20 11:17 COVID-19 (LAY) Negative (Negative) 07/21/20 12:02 COVID-19 Clin Com See Note 07/21/20 12:02 Preliminary micro results at discharge 07/21/20 17:00 Blood Culture - Preliminary Blood - Venous No growth after 24 hours. 07/21/20 17:00 Blood Culture - Preliminary Blood - Venous No growth after 24 hours. Discharge Plan Discharge Patient Disposition: Home, Self-Care Referrals: Yfn Tran MD [Primary Care Provider] - Discharge Medications: New levofloxacin 500 mg tablet 500 mg PO DAILY Qty: 14 RF: 0 Continued ondansetron 4 mg tablet,disintegrating 4 mg PO Q8H PRN (Reason: nausea and vomiting) Qty: 20 RF: 0 aspirin 81 mg Tablet 81 mg PO DAILY RF: 0 metoprolol succinate 100 mg tablet extended release 24 hr 150 mg PO BID RF: 0 pantoprazole 40 mg tablet,delayed release (DR/EC) 40 mg PO DAILY RF: 0 simvastatin 80 mg tablet 80 mg PO BEDTIME RF: 0 tamsulosin 0.4 mg capsule 0.8 mg PO DAILY 30 Days Qty: 60 RF: 2 Discontinued cefuroxime axetil 250 mg tablet 250 mg PO BID 10 Days Qty: 20 RF: 0 sulfamethoxazole-trimethoprim [Bactrim DS] 800-160 mg tablet 1 tab PO Q12H 10 Days Qty: 20 RF: 0 Discharge Orders: Discharge Order (Routine); Ordered 07/23/20 Ordered By: Phoenix Mock Diet: advance to usual diet Activity on Discharge: As tolerated Visit Report Forms: Patient Portal Discharge page Care Plan Goals: To stay healthy and out of the hospital. Health Concerns: UTI Bacteremia Plan of Treatment: Take Levaquin for 14 days
== END 2020-07-23 15:15 | disposition home or self-care (01) | DRG 690 ==
LOC: HO.ED 12:46 → HO.S3 14:20
PROVIDERS: Nurse Practitioner Acute Care; Admitting Provider Family Medicine; Emergency Provider Emergency Medicine; PCP Family Medicine; Visit Provider Family Medicine
DX: N30.01 Acute cystitis with hematuria (principal); R78.81 Bacteremia; N40.0 Benign prostatic hyperplasia without lower urinary tract symptoms; I25.10 Atherosclerotic heart disease of native coronary artery without angina pectoris; Z20.828 Contact with and (suspected) exposure to other viral communicable diseases; Z88.5 Allergy status to narcotic agent; B96.20 Unspecified Escherichia coli [E. coli] as the cause of diseases classified elsewhere; Z79.82 Long term (current) use of aspirin; Z79.899 Other long term (current) drug therapy
CPT/HCPCS: 36415; 80048; 80076; 81001; 82247; 83605; 83735; 85025; 85610; 85730; 87040; 87077; 87086; 87088; 87186; 87635; 96361; 96365; 96374; 96375; 99284; 99285; J0696; J2405

== ENCOUNTER 2020-12-14 09:32 | Outpatient (REF) | payer MEDICARE, SELFPAY ==
[2020-12-14 11:02] LABS: Anion Gap 12 (12-20); Blood Urea Nitrogen 14 mg/dL (9-16); Calcium 9.6 mg/dL (8.4-10.2); Carbon Dioxide 30 mmol/L (22-29); Chloride 104 mmol/L (96-108); Estimated Glomerular Filt Rate > 60; Glucose Random 96 mg/dL (60-115); Potassium 4.5 mmol/L (3.3-5.1); Sodium 141 mmol/L (135-145)
== END 2020-12-14 09:33 | disposition home or self-care (01) ==
LOC: HO.WFDLDS 09:32
PROVIDERS: Visit Provider Internal Medicine Nephrology
DX: N18.30 Chronic kidney disease, stage 3 unspecified (principal)
CPT/HCPCS: 36415; 80048

== ENCOUNTER 2021-05-07 14:11 | Outpatient (REF) | payer MEDICARE, SELFPAY | END 2021-05-07 14:12 | disposition home or self-care (01) | LOC: HO.LNP 14:11 | PROVIDERS: Visit Provider Family Medicine | DX: R30.0 Dysuria (principal) | CPT/HCPCS: 87086 ==

== ENCOUNTER 2022-03-27 12:15 | Emergency (ER) | payer MEDICARE, SELFPAY ==
[2022-03-27 14:53] VITALS: BP 197/91; PULSE 90; RESP 16; TEMP 36.6; O2SAT 97; BMI 33.5
[2022-03-27 15:30] LABS: Appearance Urine Turbid; Color Urine Orange; Glucose Urine UA Negative (Negative); Leukocyte Esterase Urine Large (3+) (Negative); Nitrite Urine Negative (Negative); PH 5.5 (5.0-8.0); Urine Blood Large (3+) (Negative); Urine Ketones Trace mg/dL (Negative); Urine Protein 300 (3+) mg/dL (Neg-Trace)
[2022-03-27 15:31] LABS: Bacteria Urine 4+ (None Seen); Hyaline Casts Urine 0-2 /LPF (0-2); RBC Urine >20 /HPF (0-2); Squamous Epithelial Cell Urine 0-2 /HPF (0-2); UACC Culture Trigger YES; WBC Urine >50 /HPF (0-5)
--- NOTE | 2022-03-27 18:02 | ED.MALEGU ---
HPI - Male Genitourinary General Chief complaint: Urogenital-Male Stated complaint: UTI? Time Seen by Provider: 03/27/22 17:11 Source: patient, family and old records reviewed Mode of arrival: ambulatory Limitations: no limitations History of Present Illness HPI Narrative: 82-year-old male with history of HTN, BPH, HLD, recurrent UTIs with history of E coli bacteremia and severe sepsis in the past who presents to the ER with new onset of increased urinary frequency, dysuria and incomplete bladder emptying that started today. He feels that these symptoms are similar to his prior urinary tract infections. He denies any fever, chills, nausea, vomiting, abdominal pain. He denies any blood in his urine or back pain. MD Complaint: dysuria Onset (ago): hour(s) Duration: intermittent Severity: mild Quality: burning Relieving factors: none Exacerbating factors: urination Associated symptoms: Reports dysuria Related Data Home Medications Medication Instructions Recorded Confirmed pantoprazole 40 mg tablet,delayed 40 mg PO DAILY 05/18/20 07/21/20 release simvastatin 80 mg tablet 80 mg PO BEDTIME 05/18/20 07/21/20 aspirin 81 mg tablet 81 mg PO DAILY 07/21/20 07/21/20 Previous Rx's Medication Instructions Recorded cephalexin 500 mg capsule 500 mg PO Q12H 10 days #20 caps 05/07/21 metoprolol succinate 100 mg 150 mg PO BID #120 tabs 07/12/21 tablet,extended release 24 hr mupirocin 2 % topical ointment 1 appl topical BID 14 days #15 10/15/21 grams tamsulosin 0.4 mg capsule 0.8 mg PO DAILY #180 caps 03/22/22 cefuroxime axetil 250 mg tablet 250 mg PO Q12H 10 days #20 tabs 03/27/22 Allergies Allergy/AdvReac Type Severity Reaction Status Date / Time morphine [MORPHINE] Allergy Severe CONFUSION Verified 07/16/21 08:32 oxycodone [OXYCODONE] Allergy Severe CONFUSION Verified 07/16/21 08:32 hydrochlorothiazide Allergy Mild MUSCLE Verified 07/16/21 08:32 [Hydrochlorothiazide] CRAMPS, leg cramps lisinopril [From Zestril] Allergy Mild COUGH Verified 07/16/21 08:32 amlodipine [From Norvasc] AdvReac Mild DIZZINESS Verified 07/16/21 08:32 irbesartan [From Avapro] AdvReac Mild DIZZINESS Verified 07/16/21 08:32 Review of Systems Review of Systems: Constitutional: No Fever, No Chills ENT/Mouth: No sore throat, No Rhinorrhea, No Swallowing Difficulty Cardiovascular: No Chest Pain, No SOB, No Orthopnea, No Edema Respiratory: No Cough, No Sputum, No Wheezing, No dyspnea Gastrointestinal: No Nausea, No Vomiting, No Diarrhea, No abdominal Pain, No Hematochezia, No Melena Genitourinary: + Dysuria, + Urinary Frequency, No Hematuria Musculoskeletal: No joint pain, No Myalgias Skin: No Skin Lesions, No rash Neuro: No Weakness, No Numbness, No Dizziness, No Headache Psych: No Anxiety/Panic, No Depression Heme/Lymph: No Bruising, No Lymphadenopathy Endocrine: No Polyuria, No Polydipsia PMFSH Past Medical History Medical History BPH (benign prostatic hyperplasia) CAD (coronary artery disease) High cholesterol UTI (urinary tract infection) Surgical History S/P triple vessel bypass Social History Social History Household Members: Spouse Housing: House Do you presently have visiting nurse or other home services: No Alcohol intake: unknown Patient Tobacco Use Status: Never used Tobacco e-Cigarette/Vaping Use: Never Used Second Hand Smoke Exposure: No Use of substances other than those prescribed or required for medical reasons: No Advance Directives: Yes Advance Directives Information Provided: No Advance Directives on File: No service: No Current occupational status: retired (20 years) and disabled Cognitive needs: No Hearing needs: No Vision needs: Yes (Glasses) Physical Exam Vital Signs: Vital Signs: Last Vital Signs Temp 98.3 F 03/27/22 19:48 Pulse 91 03/27/22 19:48 Resp 16 03/27/22 19:48 BP 182/81 H 03/27/22 19:48 Pulse Ox 93 03/27/22 19:48 O2 Del Method 03/27/22 19:48 BMI result Body Mass Index 33.5 Appearance: Alert. Oriented X3. No acute distress. Eyes: Pupils equal, round and reactive to light. ENT: Pharynx normal. Neck: Normal inspection. Neck supple. CVS: Normal heart rate and rhythm. Pulses normal. Respiratory: No respiratory distress. Breath sounds normal. Abdomen: Soft and nontender. +BS x4 Skin: Skin warm and dry. Normal skin color. Normal skin turgor. No rashes. Extremities: No lower extremity edema. Neuro: Oriented X 3. No motor deficit. No sensory deficit. Grossly normal, nonfocal. Course Course Course Narrative: 82 yo male presents to the ER with symptoms of a UTI that started today. HTN on arrival with SBP 190s. He reports he has white coat syndrome and his BP is usually 120-130s at home. No chest pains or headaches. Home metoprolol ordered. Will reassess. Reevaluation(s) Reevaluation #1: UA ++ for infection. WBC 13.7. normal lactic acid. he appears well. given 1 dose of IV rocephin now and will plan to d/c home with oral abx Reevaluation #2: patient stable for d/c home. he will follow up with his urologist. MDM - Male Genitourinary Medical Records Attestation: I reviewed the patient's medical records. Lab Data Attestation: I reviewed the patient's lab results. Result diagrams: 03/27/22 18:53 03/27/22 18:53 Labs: Lab Results 03/27/22 03/27/22 03/27/22 Range/Units 15:16 18:53 18:53 WBC 13.7 H (4.8-10.8) X10*3/uL RBC 4.68 (4.60-5.80) X10*6/uL Hgb 14.3 (14.0-18.0) g/dl Hct 41.9 L (42.0-52.0) % MCV 89.5 (80.0-98.0) fL MCH 30.6 (27.0-33.0) pg MCHC 34.1 (31.0-36.0) g/dl RDW 13.2 (11.0-16.0) % Plt Count 138 L (160-400) X10*3/uL MPV 9.2 L (9.4-12.4) fL Immature Gran % (Auto) 0.3 (0.0-0.4) % Neut % (Auto) 85.7 H (45-73) % Lymph % (Auto) 8.3 L (20-40) % [place] % (Auto) 5.5 (2-11) % Eos % (Auto) 0.1 (0-4) % Baso % (Auto) 0.1 (0-2) % Lymph # (Auto) 1.1 L (1.2-4.9) X10*3/uL [place] # (Auto) 0.8 (0.1-1.2) X10*3/uL Eos # (Auto) 0.0 (0.0-0.4) X10*3/uL Baso # (Auto) 0.0 (0.0-0.2) X10*3/uL Abs Immat Gran (auto) 0.04 H (0.00-0.03) X10*3/uL Absolute Neuts (auto) 11.8 H (2.0-8.3) x10*3/uL Absolute Nucleated RBC 0.000 (0.0-0.012) X10*3/uL Nucleated RBC % (auto) 0.0 (0.0-0.2) /100WBC Sodium 144 (135-145) mmol/L Potassium 4.4 (3.3-5.1) mmol/L Chloride 107 (96-108) mmol/L Carbon Dioxide 25 (22-29) mmol/L Anion Gap 16 (12-20) BUN 20 H (9-16) mg/dL Creatinine 1.25 (0.5-1.4) mg/dL Estim Creat Clear Calc 57.1 Estimated GFR 55 Random Glucose 132 H D (60-115) mg/dL Lactic Acid (0.5-2.0) mmol/L Calcium 8.9 D (8.4-10.2) mg/dL Magnesium 1.9 (1.6-2.6) mg/dL Total Bilirubin 3.3 H (0.0-1.0) mg/dL Direct Bilirubin 0.6 H (0.0-0.5) mg/dL AST 25 D (5-37) U/L ALT 17 (0-40) U/L Alkaline Phosphatase 225 H D (39-117) U/L Total Protein 6.3 L (6.5-8.0) g/dL Albumin 4.1 (3.5-5.0) g/dL Urine Color [place] A Urine Appearance Turbid Urine pH 5.5 (5.0-8.0) Ur Specific Counselor 1.020 (1.005-1.025) Urine Protein 300 (3+) H (Neg-Trace) mg/dL Urine Glucose (UA) Negative (Negative) mg/dL Urine Ketones Trace (Negative) mg/dL Urine Blood Large (3+) H (Negative) Urine Nitrite Negative (Negative) Ur Leukocyte Esterase Large (3+) H (Negative) Urine RBC >20 H (0-2) /HPF Urine WBC >50 H (0-5) /HPF Ur Squamous Epith Cells 0-2 (0-2) /HPF Urine Bacteria 4+ (None Seen) Hyaline Casts 0-2 (0-2) /LPF 03/27/22 Range/Units 18:53 WBC (4.8-10.8) X10*3/uL RBC (4.60-5.80) X10*6/uL Hgb (14.0-18.0) g/dl Hct (42.0-52.0) % MCV (80.0-98.0) fL MCH (27.0-33.0) pg MCHC (31.0-36.0) g/dl RDW (11.0-16.0) % Plt Count (160-400) X10*3/uL MPV (9.4-12.4) fL Immature Gran % (Auto) (0.0-0.4) % Neut % (Auto) (45-73) % Lymph % (Auto) (20-40) % [place] % (Auto) (2-11) % Eos % (Auto) (0-4) % Baso % (Auto) (0-2) % Lymph # (Auto) (1.2-4.9) X10*3/uL [place] # (Auto) (0.1-1.2) X10*3/uL Eos # (Auto) (0.0-0.4) X10*3/uL Baso # (Auto) (0.0-0.2) X10*3/uL Abs Immat Gran (auto) (0.00-0.03) X10*3/uL Absolute Neuts (auto) (2.0-8.3) x10*3/uL Absolute Nucleated RBC (0.0-0.012) X10*3/uL Nucleated RBC % (auto) (0.0-0.2) /100WBC Sodium (135-145) mmol/L Potassium (3.3-5.1) mmol/L Chloride (96-108) mmol/L Carbon Dioxide (22-29) mmol/L Anion Gap (12-20) BUN (9-16) mg/dL Creatinine (0.5-1.4) mg/dL Estim Creat Clear Calc Estimated GFR Random Glucose (60-115) mg/dL Lactic Acid 1.6 (0.5-2.0) mmol/L Calcium (8.4-10.2) mg/dL Magnesium (1.6-2.6) mg/dL Total Bilirubin (0.0-1.0) mg/dL Direct Bilirubin (0.0-0.5) mg/dL AST (5-37) U/L ALT (0-40) U/L Alkaline Phosphatase (39-117) U/L Total Protein (6.5-8.0) g/dL Albumin (3.5-5.0) g/dL Urine Color Urine Appearance Urine pH (5.0-8.0) Ur Specific Counselor (1.005-1.025) Urine Protein (Neg-Trace) mg/dL Urine Glucose (UA) (Negative) mg/dL Urine Ketones (Negative) mg/dL Urine Blood (Negative) Urine Nitrite (Negative) Ur Leukocyte Esterase (Negative) Urine RBC (0-2) /HPF Urine WBC (0-5) /HPF Ur Squamous Epith Cells (0-2) /HPF Urine Bacteria (None Seen) Hyaline Casts (0-2) /LPF Critical Care Time Critical Care Time Critical Care Time: No Discharge Plan Discharge Clinical Impression: Acute UTI Patient Disposition: Home, Self-Care Instructions: Urinary Tract Infection in Men (ED) Additional Instructions: Your urinalysis today was consistent with the urinary tract infection. Your given 1 dose of IV antibiotics in the emergency department. A 10 day supply of oral antibiotics were sent to your pharmacy. Start taking them tomorrow morning. Drink plenty of water. Follow-up with your doctor and urologist this week. If you develop new or worsening symptoms call 911 or come back to the ER for further evaluation. Prescriptions: New cefuroxime axetil 250 mg tablet 250 mg PO Q12H 10 Days Qty: 20 0RF No Action tamsulosin 0.4 mg capsule 0.8 mg PO DAILY Qty: 180 1RF aspirin 81 mg Tablet 81 mg PO DAILY pantoprazole 40 mg tablet,delayed release (DR/EC) 40 mg PO DAILY simvastatin 80 mg tablet 80 mg PO BEDTIME cephalexin 500 mg capsule 500 mg PO Q12H 10 Days Qty: 20 0RF mupirocin 2 % ointment 1 appl topical BID 14 Days Qty: 15 0RF Interventions: ED Discharge Assessment Last Done: 03/27/22 20:02 Discharge Date/Time: 03/27/22 20:15
[2022-03-27 19:00] LABS: MANUAL DIFF FLAG NO
[2022-03-27] MEDS: 0.9 % Sodium Chloride 1,000 ML 999 ML IVCONT (19:03)
[2022-03-27] MEDS: cefTRIAXone sodium 1 GM in 0.9 % Sodium Chloride 50 ML IV (19:03)
[2022-03-27 19:05] LABS: Basophils Percent Auto 0.1 % (0-2); Eosinophils Percent Auto 0.1 % (0-4); Hematocrit 41.9 % (42.0-52.0); Hemoglobin 14.3 g/dl (14.0-18.0); Imm Gran Abs Auto 0.04 X10*3/uL (0.00-0.03); Imm Gran Pct Auto 0.3 % (0.0-0.4); Lymphocytes Absolute Auto 1.1 X10*3/uL (1.2-4.9); Lymphocytes Percent Auto 8.3 % (20-40); Mean Corpuscular HGB Conc 34.1 g/dl (31.0-36.0); Mean Corpuscular Hemoglobin 30.6 pg (27.0-33.0); Mean Corpuscular Volume 89.5 fL (80.0-98.0); Mean Platelet Volume 9.2 fL (9.4-12.4); Monocytes Absolute Auto 0.8 X10*3/uL (0.1-1.2); Monocytes Percent Auto 5.5 % (2-11); Neutrophils Absolute Auto 11.8 x10*3/uL (2.0-8.3); Neutrophils Percent Auto 85.7 % (45-73); Platelet Count 138 X10*3/uL (160-400); Red Blood Count 4.68 X10*6/uL (4.60-5.80); Red Cell Distribution Width 13.2 % (11.0-16.0); White Blood Count 13.7 X10*3/uL (4.8-10.8)
[2022-03-27 19:13] LABS: Lactic Acid 1.6 mmol/L (0.5-2.0)
[2022-03-27 19:18] LABS: Alanine Aminotransferase 17 U/L (0-40); Albumin Level 4.1 g/dL (3.5-5.0); Alkaline Phosphatase 225 U/L (39-117); Anion Gap 16 (12-20); Aspartate Amino Transferase 25 U/L (5-37); Bilirubin Direct 0.6 mg/dL (0.0-0.5); Bilirubin Total 3.3 mg/dL (0.0-1.0); Blood Urea Nitrogen 20 mg/dL (9-16); Calcium 8.9 mg/dL (8.4-10.2); Carbon Dioxide 25 mmol/L (22-29); Chloride 107 mmol/L (96-108); Creatinine Clr Calc Pharmacy 57.1; Estimated Glomerular Filt Rate 55; Glucose Random 132 mg/dL (60-115); Magnesium 1.9 mg/dL (1.6-2.6); Potassium 4.4 mmol/L (3.3-5.1); Sodium 144 mmol/L (135-145); Total Protein 6.3 g/dL (6.5-8.0)
--- NOTE | 2022-03-27 19:29 | PC.NURSE ---
THIS NURSE HAS NOW ASSUMED CARE OF PT
[2022-03-27 19:48] VITALS: BP 182/81; PULSE 91; RESP 16; TEMP 36.8; O2SAT 93
[2022-03-27] MEDS: Metoprolol Tartrate 100 MG TABLET 150 MG PO (19:51)
[2022-03-27] MEDS: Tamsulosin HCL 0.4 MG CAPSULE 0.8 MG PO (19:52)
[2022-03-27] MEDS: Atorvastatin Calcium 80 MG TABLET PO (19:53)
== END 2022-03-27 20:15 | disposition home or self-care (01) ==
PROVIDERS: Physician Assistant; Emergency Provider Emergency Medicine; PCP Family Medicine
DX: N39.0 Urinary tract infection, site not specified (principal); R30.0 Dysuria; Z79.899 Other long term (current) drug therapy
CPT/HCPCS: 36415; 80048; 80076; 81001; 83605; 83735; 85025; 87040; 87086; 87088; 87186; 96365; 99284; J0696

== ENCOUNTER 2022-04-20 16:19 | Outpatient (REF) | payer MEDICARE, SELFPAY ==
[2022-04-21 11:41] LABS: Appearance Urine Clear; Color Urine Yellow; Glucose Urine UA Negative (Negative); Leukocyte Esterase Urine Negative (Negative); Nitrite Urine Negative (Negative); PH 5.5 (5.0-9.0); Specific Gravity - Urine 1.025 (1.005-1.025); Urine Blood Negative (Negative); Urine Ketones Trace mg/dL (Negative); Urine Protein Negative (Neg-Trace)
== END 2022-04-20 16:20 | disposition home or self-care (01) ==
LOC: HO.LNP 16:19
PROVIDERS: Visit Provider Family Medicine
DX: Z00.01 Encounter for general adult medical examination with abnormal findings (principal); N30.01 Acute cystitis with hematuria
CPT/HCPCS: 81003; 87086

== ENCOUNTER 2022-04-20 17:21 | Outpatient (REF) | payer MEDICARE, SELFPAY | END 2022-04-20 17:22 | disposition home or self-care (01) | LOC: HO.LAB 17:21 | PROVIDERS: Visit Provider Family Medicine | DX: Z13.89 Encounter for screening for other disorder (principal) ==

== ENCOUNTER 2022-09-29 11:13 | Outpatient (REF) | payer MEDICARE, SELFPAY ==
[2022-09-29 12:06] LABS: Appearance Urine Turbid; Color Urine Dark Yellow; Glucose Urine UA Negative (Negative); Leukocyte Esterase Urine Large (3+) (Negative); Nitrite Urine Negative (Negative); UMIC TRIGGER UACC YES; Urine Blood Large (3+) (Negative); Urine Ketones Negative (Negative); Urine Protein 100 (2+) mg/dL (Neg-Trace)
[2022-09-29 12:09] LABS: Bacteria Urine 4+ (None Seen); Hyaline Casts Urine 0-2 /LPF (0-2); RBC Urine >20 /HPF (0-2); Squamous Epithelial Cell Urine 0-2 /HPF (0-2); UACC Culture Trigger YES; WBC Urine >50 /HPF (0-5)
== END 2022-09-29 11:14 | disposition home or self-care (01) ==
LOC: HO.LNP 11:13
PROVIDERS: Visit Provider Nurse Practitioner Family
DX: N39.0 Urinary tract infection, site not specified (principal)
CPT/HCPCS: 81001; 81003; 87086; 87088; 87186

== ENCOUNTER 2022-10-25 07:19 | Outpatient (REF) | payer MEDICARE, SELFPAY ==
[2022-10-25 11:40] LABS: MANUAL DIFF FLAG NO
[2022-10-25 11:56] LABS: Appearance Urine Clear; Color Urine Yellow; Glucose Urine UA Negative (Negative); Leukocyte Esterase Urine Negative (Negative); Nitrite Urine Negative (Negative); PH 5.5 (5.0-9.0); Urine Blood Negative (Negative); Urine Ketones Negative (Negative); Urine Protein Negative (Neg-Trace)
[2022-10-25 11:57] LABS: Basophils Percent Auto 0.7 % (0-2); Eosinophils Absolute Auto 0.3 X10*3/uL (0.0-0.4); Eosinophils Percent Auto 4.4 % (0-4); Hematocrit 45.3 % (42.0-52.0); Imm Gran Abs Auto 0.01 X10*3/uL (0.00-0.03); Imm Gran Pct Auto 0.2 % (0.0-0.4); Lymphocytes Absolute Auto 2.2 X10*3/uL (1.2-4.9); Lymphocytes Percent Auto 35.7 % (20-40); Mean Corpuscular HGB Conc 33.1 g/dl (31.0-36.0); Mean Corpuscular Hemoglobin 30.1 pg (27.0-33.0); Mean Platelet Volume 10.1 fL (9.4-12.4); Monocytes Absolute Auto 0.4 X10*3/uL (0.1-1.2); Neutrophils Absolute Auto 3.2 x10*3/uL (2.0-8.3); Platelet Count 147 X10*3/uL (160-400); Red Blood Count 4.98 X10*6/uL (4.60-5.80); Red Cell Distribution Width 13.4 % (11.0-16.0); White Blood Count 6.1 X10*3/uL (4.8-10.8)
[2022-10-25 12:39] LABS: Alanine Aminotransferase 20 U/L (0-40); Albumin Level 4.2 g/dL (3.5-5.0); Alkaline Phosphatase 240 U/L (39-117); Anion Gap 11 (12-20); Aspartate Amino Transferase 27 U/L (5-37); Bilirubin Total 2.6 mg/dL (0.0-1.0); Blood Urea Nitrogen 16 mg/dL (9-16); Carbon Dioxide 29 mmol/L (22-29); Chloride 108 mmol/L (96-108); Cholesterol 148 mg/dL; Estimated Glomerular Filt Rate > 60; Glucose Fasting 106 mg/dL (60-99); HDL Cholesterol 54 mg/dL; LDL Cholesterol Calculated 58 mg/dl; Potassium 4.3 mmol/L (3.3-5.1); Prostate Specific Antigen Scr 3.78 ng/mL (<0.05-4.0); Sodium 144 mmol/L (135-145); TSH reflex Free T4 3.96 uIU/mL (0.32-4.0); Total Protein 6.2 g/dL (6.5-8.0); Triglycerides 183 mg/dL
[2022-10-25 12:43] LABS: Creatinine Urine 156.15 mg/dL; Microalbum/Creatinine Ratio Ur 9.6 ug/mg cr
== END 2022-10-25 07:20 | disposition home or self-care (01) ==
LOC: HO.WFDLDS 07:19
PROVIDERS: Nurse Practitioner Family; Visit Provider Family Medicine
DX: Z00.00 Encounter for general adult medical examination without abnormal findings (principal); Z12.5 Encounter for screening for malignant neoplasm of prostate; N30.01 Acute cystitis with hematuria; I10 Essential (primary) hypertension
CPT/HCPCS: 36415; 80053; 80061; 81003; 82043; 84153; 84443; 85025

== ENCOUNTER 2023-02-22 09:26 | Outpatient (AMB) | payer MEDICARE, SELFPAY ==
--- NOTE | 2023-02-22 09:28 | A.OFFPC_ITS ---
Vital Signs 02/22/23 09:29 Height 5 ft 11 in Weight 246 lb BMI 34.3 BP 130/82 Blood Pressure Location Lt brachial Position Sitting Pulse 71 Pulse Source Pulse Oximeter Pulse Oximetry (%) 97 Oxygen Delivery Method Room Air Intake Visit Reasons: f/u hypertension and labs Intake Note: Patient is here for follow up on hypertension and labs. Allergies morphine [MORPHINE] Allergy (Severe, Verified 02/22/23 09:31) CONFUSION oxycodone [OXYCODONE] Allergy (Severe, Verified 02/22/23 09:31) CONFUSION hydrochlorothiazide [Hydrochlorothiazide] Allergy (Mild, Verified 02/22/23 09:31) MUSCLE CRAMPS, leg cramps lisinopril [From Zestril] Allergy (Mild, Verified 02/22/23 09:31) COUGH amlodipine [From Norvasc] Adverse Reaction (Mild, Verified 02/22/23 09:31) DIZZINESS irbesartan [From Avapro] Adverse Reaction (Mild, Verified 02/22/23 09:31) DIZZINESS Medication List - Last Reconciled 02/22/23 by Yfn Tran MD aspirin 81 mg PO DAILY levofloxacin 750 mg PO DAILY 10 days metoprolol succinate ER 150 mg (1.5 x 100 mg) PO BID 90 days mupirocin 2% 1 appl topical BID 14 days pantoprazole 40 mg PO DAILY simvastatin 80 mg PO BEDTIME tamsulosin 0.8 mg (2 x 0.4 mg) PO DAILY Tobacco use date assessed: 02/22/23 Fall risk assessment: No Falls in past year Last assessed Fall Risk: 02/22/23 Dental Screening Dental Screen Date: 02/22/23 Did you have a dental visit in the last 12 months?: Yes Did you have a dental problem in the last 6 months where you did not have access to dental care?: No Was dental information given to patient?: No HPI f/u hypertension and labs HPI Details 83 y/o male presents to f/u hypertension and labs. Blood pressure today is 130/82. He is on metoprolol 150mg daily. No recent labs to review. Hx of elevated fasting glucose. A1c today 02/22/23 is 5.3%. [facility] Medical History BPH (benign prostatic hyperplasia) CAD (coronary artery disease) High cholesterol UTI (urinary tract infection) Surgical History S/P triple vessel bypass Social History Household Members: Spouse Housing: House Do you presently have visiting nurse or other home services: No Alcohol intake: unknown Patient Tobacco Use Status: Never used Tobacco e-Cigarette/Vaping Use: Never Used Second Hand Smoke Exposure: No service: No Current occupational status: retired (20 years) and disabled Current occupational exposures/hazards: No Cognitive needs: No Hearing needs: No Vision needs: Yes (Glasses) Questionnaire PHQ-9 Over the last 2 weeks, how often have you been bothered by any of the following problems? 1. Little interest or pleasure in doing things: not at all 2. Feeling down, depressed, or hopeless: not at all 3. Trouble falling or staying asleep, or sleeping too much: not at all 4. Feeling tired or having little energy: not at all 5. Poor appetite or overeating: not at all 6. Feeling bad about yourself - or that you are a failure or have let yourself or your family down: not at all 7. Trouble concentrating on things, such as reading the newspaper or watching television: not at all 8. Moving or speaking so slowly that other people could have noticed. Or the opposite - being so fidgety or restless that you have been moving around a lot more than usual: not at all 9. Thoughts that you would be better off or of hurting yourself in some way: not at all Total score: 0 Source: Developed by Drs. Dewayne Eden, Drea Delgado, Pierce Cao and colleagues, with an educational pj from [employer] Thrive Questionnaire Date Thrive assessed: 08/26/22 I am a: Patient What is your living situation today?: I have a steady place to live Within the past 12 months, did the food you bought not last and you didn't have the money to get more?: Never true Within the past 12 months, did you worry whether your food would run out before you got money to buy more?: Never true Do you have trouble paying for medicines?: No Do you have trouble getting transportation to medical appointments?: No Do you have trouble paying your heating and electricity bill?: No Do you have trouble taking care of your child, family member or friend?: No Do you have trouble with day-to-day activities such as bathing, preparing meals, shopping, managing finances, etc.?: No Are you currently unemployed and looking for a job?: No Are you interested in more education?: No AUDIT C Alcohol Use Questionnaire (AUDIT-C) 1. How often do you have a drink containing alcohol?: Monthly or less 2. How many drinks containing alcohol do you have on a typical day when you are drinking?: 1 or 2 3. How often do you have six or more drinks on one occasion?: Never Total Score: 1 SHAYLEE-7 AMB Questionnaire SHAYLEE-7 Date SHAYLEE - 7 assessed: 08/26/22 Feeling nervous, anxious, or on edge: 0 = Not at all Not being able to stop or control worryin = Not at all Worrying too much about different things: 0 = Not at all Trouble relaxin = Not at all Being so restless that it is hard to sit still: 0 = Not at all Becoming easily annoyed or irritable: 0 = Not at all Feeling afraid as if something awful might happen: 0 = Not at all Total SHAYLEE-7 score (0-4 normal; 5-9 mild; 10-14 moderate; 15-21 severe): 0 Source: Developed by Drs. Dewayne Eden, Drea Delgado, Pierce Cao and colleagues, with an educational pj from [employer] Review of Systems Const Denies chills, Denies fatigue, Denies fever(s), Denies headache(s) and Denies weakness ENT Denies dizziness and Denies headache(s) Card Denies chest pain, Denies lightheadedness, Denies dyspnea and Denies other (Palpitations) Resp Denies cough, Denies dyspnea, Denies wheezing and Denies other ( shortness of breath) Musc Denies numbness and Denies tingling Neuro Denies dizziness, Denies headache(s), Denies numbness, Denies tingling, Denies paresthesias and Denies weakness Psych Denies anxiety and Denies depression Endo Denies fatigue Aller/Immun Denies wheezing Physical exam (Primary Care) Vital Signs: Last Vital Signs Pulse 71 02/22/23 09:29 BP 130/82 02/22/23 09:29 Pulse Ox 97 02/22/23 09:29 Oxygen Delivery Method Room Air 02/22/23 09:29 BMI result Body Mass Index 34.3 Tobacco/Smoking Status: Tobacco use Status Tobacco use date assessed 02/22/23 02/22/23 09:39 Patient Tobacco Use Status Never used Tobacco 02/22/23 09:39 e-Cigarette/Vaping Use Never Used 02/22/23 09:39 PHQ-9: PHQ-9 Score PHQ-9: Total score 0 02/22/23 09:58 Thrive Assessment: Date of Thrive Assessment Date Thrive assessed 08/26/22 02/22/23 09:39 Const General: no acute distress and well developed Nutritional Appearance: well nourished Orientation/consciousness: patient oriented x3 HENMT Head: Yes normocephalic and Yes atraumatic Eyes General: appearance normal, both eyes and all related structures Pupils: Equal, round and reactive pupils present EOM: EOMs intact bilaterally Resp Effort & Inspection: normal respiratory effort Auscultation: clear to auscultation bilaterally Cardio Rate: regular rate Rhythm: regular rhythm Heart sounds: S1 normal heart sound present, S2 normal heart sound present, no gallops, no murmurs and no rubs Neuro General: patient oriented x3 and gait normal Cranial nerves: Yes Equal, round and reactive pupils present Psych Affect: normal affect Results AMB Hemoglobin A1c AMB Hemoglobin A1c 5.2 % Last Edit by Osiris Cervantes CMA on 02/22/23 10:08 Results Reviewed Results Reviewed: Laboratory Last Values Hgb A1c (Clinic) 5.2 % (4.0-6.0) 02/22/23 10:03 Assessment and Plan Assessment & Plan (1) Essential hypertension: Code(s): I10 - Essential (primary) hypertension Plan: Blood pressure is controlled. Goal is less than 140/90 Continue metoprolol (2) Elevated fasting glucose: Code(s): R73.01 - Impaired fasting glucose Plan: A1c 5.2%; within normal range Will monitor periodically Orders: Orders Comprehensive Met. Panel Today I10 - Essential (primary) hypertension Prostate Specific Antigen Scr Today Z12.5 - Encounter for screening for malignant neoplasm of prostate Complete Blood Count Auto Diff Today D69.6 - Thrombocytopenia, unspecified, Z00.00 - Encounter for general adult medical examination without abnormal findings AMB Hemoglobin A1c Today Z13.9 - Encounter for screening, unspecified Medications: Discontinued levofloxacin Discontinued Reason: Patient Completed Course 750 mg PO DAILY 10 days 10 tabs 0RF Coding Level of Care Code Est Pt Level 3 (65222) Diagnoses Essential hypertension I10 Elevated fasting glucose R73.01
[2023-02-22 09:29] VITALS: BP 130/82; PULSE 71; O2SAT 97; BMI 34.3
== END 2023-02-22 10:32 | disposition home or self-care (01) ==
PROVIDERS: PCP Family Medicine; Visit Provider Family Medicine
DX: I10 Essential (primary) hypertension (principal); R73.01 Impaired fasting glucose; Z13.9 Encounter for screening, unspecified
CPT/HCPCS: 83036; 99213

== ENCOUNTER 2023-02-22 10:11 | Outpatient (REF) | payer MEDICARE, SELFPAY ==
[2023-02-22 11:25] LABS: MANUAL DIFF FLAG NO
[2023-02-22 11:42] LABS: Basophils Percent Auto 0.6 % (0-2); Eosinophils Absolute Auto 0.3 X10*3/uL (0.0-0.4); Hematocrit 43.4 % (42.0-52.0); Hemoglobin 14.3 g/dl (14.0-18.0); Imm Gran Abs Auto 0.02 X10*3/uL (0.00-0.03); Imm Gran Pct Auto 0.3 % (0.0-0.4); Lymphocytes Absolute Auto 2.2 X10*3/uL (1.2-4.9); Lymphocytes Percent Auto 35.5 % (20-40); Mean Corpuscular HGB Conc 32.9 g/dl (31.0-36.0); Mean Corpuscular Hemoglobin 30.1 pg (27.0-33.0); Mean Corpuscular Volume 91.4 fL (80.0-98.0); Mean Platelet Volume 9.7 fL (9.4-12.4); Monocytes Absolute Auto 0.5 X10*3/uL (0.1-1.2); Monocytes Percent Auto 7.4 % (2-11); Neutrophils Absolute Auto 3.2 x10*3/uL (2.0-8.3); Neutrophils Percent Auto 52.2 % (45-73); Platelet Count 144 X10*3/uL (160-400); Red Blood Count 4.75 X10*6/uL (4.60-5.80); White Blood Count 6.2 X10*3/uL (4.8-10.8)
[2023-02-22 11:51] LABS: Estimated Average Glucose 94 mg/dL; Hemoglobin A1c % 4.9 %
[2023-02-22 15:46] LABS: Prostate Specific Antigen Scr 3.72 ng/mL (<0.05-4.0)
[2023-02-23 01:53] LABS: Alanine Aminotransferase 17 U/L (0-40); Alkaline Phosphatase 236 U/L (39-117); Anion Gap 11 (12-20); Aspartate Amino Transferase 26 U/L (5-37); Bilirubin Total 2.2 mg/dL (0.0-1.0); Blood Urea Nitrogen 19 mg/dL (9-16); Calcium 9.3 mg/dL (8.4-10.2); Carbon Dioxide 27 mmol/L (22-29); Chloride 106 mmol/L (96-108); Estimated Glomerular Filt Rate > 60; Gamma Glutamyl Transpeptidase 22 U/L (11-51); Glucose Random 88 mg/dL (60-115); Potassium 4.2 mmol/L (3.3-5.1); Sodium 140 mmol/L (135-145); Total Protein 6.3 g/dL (6.5-8.0)
[2023-02-23 02:12] LABS: Vitamin D 25-OH Total 28.3 ng/mL (>30)
== END 2023-02-22 10:12 | disposition home or self-care (01) ==
LOC: HO.WFDLDS 10:11
PROVIDERS: Visit Provider Family Medicine
DX: Z00.00 Encounter for general adult medical examination without abnormal findings (principal); I10 Essential (primary) hypertension; D69.6 Thrombocytopenia, unspecified; E55.9 Vitamin D deficiency, unspecified; R73.01 Impaired fasting glucose; R17 Unspecified jaundice; Z12.5 Encounter for screening for malignant neoplasm of prostate
CPT/HCPCS: 36415; 80053; 82306; 82977; 83036; 84153; 85025

== ENCOUNTER 2023-03-21 13:58 | Outpatient (AMB) | payer MEDICARE, SELFPAY ==
--- NOTE | 2023-03-21 13:32 | MHC.PC.OV ---
Intake Visit Reasons: f/u labs, Allergies morphine [MORPHINE] Allergy (Severe, Verified 03/21/23 13:34) CONFUSION oxycodone [OXYCODONE] Allergy (Severe, Verified 03/21/23 13:34) CONFUSION hydrochlorothiazide [Hydrochlorothiazide] Allergy (Mild, Verified 03/21/23 13:34) MUSCLE CRAMPS, leg cramps lisinopril [From Zestril] Allergy (Mild, Verified 03/21/23 13:34) COUGH amlodipine [From Norvasc] Adverse Reaction (Mild, Verified 03/21/23 13:34) DIZZINESS irbesartan [From Avapro] Adverse Reaction (Mild, Verified 03/21/23 13:34) DIZZINESS Tobacco use date assessed: 02/22/23 HPI f/u labs, HPI Details Telemedicine encounter to follow-up on mild thrombocytopenia and top-normal PSA level Platelet count essentially unchanged from prior. He has had mildly depressed platelet counts for the last few years. No excessive bleeding. Other cell lines are normal PSA is at upper limits of normal. He had had a urinary tract infections so repeated PSA level. Slightly lower than prior but essentially the same. He has no difficulty urinating and no changes in his urine stream [facility] Medical History BPH (benign prostatic hyperplasia) CAD (coronary artery disease) High cholesterol UTI (urinary tract infection) Surgical History S/P triple vessel bypass Social History Household Members: Spouse Housing: House Do you presently have visiting nurse or other home services: No Alcohol intake: unknown Patient Tobacco Use Status: Never used Tobacco e-Cigarette/Vaping Use: Never Used Second Hand Smoke Exposure: No service: No Current occupational status: retired (20 years) and disabled Current occupational exposures/hazards: No Cognitive needs: No Hearing needs: No Vision needs: Yes (Glasses) Questionnaire Thrive Questionnaire Date Thrive assessed: 08/26/22 SHAYLEE-7 AMB Questionnaire SHAYLEE-7 Date SHAYLEE - 7 assessed: 08/26/22 Source: Developed by Drs. Dewayne L. Drea Eden, Pierce Cao and colleagues, with an educational pj from [employer]. Review of Systems Const Denies chills, Denies fatigue, Denies fever(s), Denies headache(s) and Denies weakness ENT Denies dizziness and Denies headache(s) Card Denies chest pain, Denies lightheadedness, Denies dyspnea and Denies other (Palpitations) Resp Denies cough, Denies dyspnea, Denies wheezing and Denies other ( shortness of breath) Musc Denies numbness and Denies tingling Neuro Denies dizziness, Denies headache(s), Denies numbness, Denies tingling, Denies paresthesias and Denies weakness Psych Denies anxiety and Denies depression Endo Denies fatigue Aller/Immun Denies wheezing Physical exam (Primary Care) Tobacco/Smoking Status: Tobacco use Status Tobacco use date assessed 02/22/23 03/21/23 13:35 Patient Tobacco Use Status Never used Tobacco 03/21/23 13:35 e-Cigarette/Vaping Use Never Used 03/21/23 13:35 Thrive Assessment: Date of Thrive Assessment Date Thrive assessed 08/26/22 03/21/23 13:35 Const Other: General Appearance: no apparent distress, pleasant. Heart: RRR, no murmurs, clicks or rubs, no gallops. Lungs: clear to auscultation. Extremities: no edema. Neurologic Exam: alert and oriented x3, gait normal, Psych: Normal affect Telehealth Telehealth Location of provider rendering services: practice address Location of patient: address on file Patient Identification confirmed using: Name, : Yes Telehealth method: voice only Patient verbally consented to treatment: Yes Patient verbally consented to billing insurance company: Yes Patient informed of any privacy concerns related to visit: Yes Minutes spent on Phone/Video with Pt.: 6 Assessment and Plan Assessment & Plan (1) Screening for prostate cancer: Code(s): Z12.5 - Encounter for screening for malignant neoplasm of prostate Plan: PSA at top normal range. He had had UTI around the time of his prior PSA level but this is essentially unchanged today. Likely some BPH but no urinary complaints Will continue to follow (2) Thrombocytopenia: Code(s): D69.6 - Thrombocytopenia, unspecified Plan: Mildly low platelet counts but fairly stable and his other cell lines are within normal limits Will monitor Coding Level of Care Code Tele Est Pt Level 2 (65801) Diagnoses Screening for prostate cancer Z12.5 Thrombocytopenia D69.6
== END 2023-03-21 14:19 | disposition home or self-care (01) ==
LOC: HO.HMGFM 13:58
PROVIDERS: PCP Family Medicine; Visit Provider Family Medicine
DX: D69.6 Thrombocytopenia, unspecified (principal); Z12.5 Encounter for screening for malignant neoplasm of prostate
CPT/HCPCS: 99441

== ENCOUNTER 2023-04-04 08:28 | Outpatient (AMB) | payer MEDICARE, SELFPAY ==
--- NOTE | 2023-04-04 08:31 | AM.OFFWIN_ITS ---
Intake Vital Signs 04/04/23 08:39 Height 5 ft 11 in BMI Reason not done Patient refused/unable BP 126/70 Blood Pressure Location Rt brachial Position Sitting Respiration 12 Pulse 89 Pulse Source Pulse Oximeter Temp Source Temporal Artery Scan Pulse Oximetry (%) 97 Oxygen Delivery Method Room Air Intake Visit Reasons: ? UTI Intake Note: Patient states that he started noticing symptoms around midnight. Patient states that he is experiencing burning sensation when using bathroom. Patient Tobacco Use Status: Never used Tobacco Hand Rug Cleaner Required: No Accompanied by: Self / Same As Patient Allergies morphine [MORPHINE] Allergy (Severe, Verified 04/04/23 08:44) CONFUSION oxycodone [OXYCODONE] Allergy (Severe, Verified 04/04/23 08:44) CONFUSION hydrochlorothiazide [Hydrochlorothiazide] Allergy (Mild, Verified 04/04/23 08:44) MUSCLE CRAMPS, leg cramps lisinopril [From Zestril] Allergy (Mild, Verified 04/04/23 08:44) COUGH amlodipine [From Norvasc] Adverse Reaction (Mild, Verified 04/04/23 08:44) DIZZINESS irbesartan [From Avapro] Adverse Reaction (Mild, Verified 04/04/23 08:44) DIZZINESS HPI ? UTI HPI Details 83 y/o male presents with ? UTI. Patient states that he started noticing symptoms around midnight. Patient reports dysuria and does have a hx of recurrent UTIs. [facility] Medical History BPH (benign prostatic hyperplasia) CAD (coronary artery disease) High cholesterol UTI (urinary tract infection) Surgical History S/P triple vessel bypass Social History Household Members: Spouse Housing: House Do you presently have visiting nurse or other home services: No Alcohol intake: unknown Patient Tobacco Use Status: Never used Tobacco e-Cigarette/Vaping Use: Never Used Second Hand Smoke Exposure: No service: No Current occupational status: retired (20 years) and disabled Current occupational exposures/hazards: No Cognitive needs: No Hearing needs: No Vision needs: Yes (Glasses) Review of Systems Const Denies chills, Denies fatigue, Denies fever(s), Denies headache(s) and Denies weakness ENT Denies dizziness and Denies headache(s) Card Denies dyspnea Resp Denies cough, Denies dyspnea, Denies wheezing and Denies other (shortness of breath) Reports dysuria Musc Denies numbness and Denies tingling Neuro Denies dizziness, Denies headache(s), Denies numbness, Denies tingling and Denies weakness Psych Denies anxiety and Denies depression Endo Denies fatigue Aller/Immun Denies wheezing Physical Exam Vital Signs: Last Vital Signs Pulse 89 04/04/23 08:39 Resp 12 04/04/23 08:39 BP 126/70 04/04/23 08:39 Pulse Ox 97 04/04/23 08:39 Oxygen Delivery Method Room Air 04/04/23 08:39 Const General: well developed; No acute distress Nutritional Appearance: well nourished Orientation/consciousness: patient oriented x3 HEENT Head: Yes normocephalic and Yes atraumatic Eyes General: appearance normal, both eyes and all related structures Pupils: Equal, round and reactive pupils present EOM: EOMs intact bilaterally Resp Effort & Inspection: normal respiratory effort Neuro General: patient oriented x3 and gait normal Cranial nerves: Yes Equal, round and reactive pupils present Psych Affect: normal affect Assessment & Plan Assessment & Plan (1) Recurrent UTI: Code(s): N39.0 - Urinary tract infection, site not specified Plan: Recurrent UTIs PSA at upper limits of normal Hesitancy and on Flomax Likely some BPH with hesitancy leading to recurrent UTIs Start levofloxacin Referred him back to his urologist at [facility] Urology Orders: Orders 2 Urine Culture Today N39.0 - Urinary tract infection, site not specified UA and rflx microscopic Today N39.0 - Urinary tract infection, site not sp ecified, Z00.00 - Encounter for general adult medical examination without abnormal findings Referrals Urology Referral N39.0 - Urinary tract infection, site not specified Medications: Refilled levofloxacin 750 mg PO DAILY 10 tabs 0RF 10 days N39.0 - Urinary tract infection, site not specified Coding Level of Care Code Est Pt Level 3 (77129) Diagnoses Recurrent UTI N39.0
[2023-04-04 08:39] VITALS: BP 126/70; PULSE 89; RESP 12; O2SAT 97
== END 2023-04-04 08:57 | disposition home or self-care (01) ==
PROVIDERS: PCP Family Medicine; Visit Provider Family Medicine
DX: N39.0 Urinary tract infection, site not specified (principal)
CPT/HCPCS: 99213

== ENCOUNTER 2023-04-04 08:45 | Outpatient (REF) | payer MEDICARE, SELFPAY ==
[2023-04-05 11:59] LABS: Appearance Urine Turbid; Color Urine Yellow; Glucose Urine UA Negative (Negative); Leukocyte Esterase Urine Large (3+) (Negative); Nitrite Urine Negative (Negative); PH 5.5 (5.0-9.0); UMIC TRIGGER UA YES; Urine Blood Large (3+) (Negative); Urine Ketones Negative (Negative); Urine Protein 100 (2+) mg/dL (Neg-Trace)
[2023-04-05 12:29] LABS: Bacteria Urine 1+ (None Seen); Hyaline Casts Urine 0-2 /LPF (0-2); RBC Urine >20 /HPF (0-2); Squamous Epithelial Cell Urine 0-2 /HPF (0-2); WBC Urine >50 /HPF (0-5)
== END 2023-04-04 08:46 | disposition home or self-care (01) ==
LOC: HO.LAB 08:45
PROVIDERS: Visit Provider Family Medicine
DX: N39.0 Urinary tract infection, site not specified (principal)
CPT/HCPCS: 81001; 81003

== ENCOUNTER 2023-07-04 08:21 | Outpatient (AMB) | payer MEDICARE, SELFPAY ==
[2023-07-04 08:26] VITALS: BP 130/78; PULSE 70; O2SAT 96; BMI 34.3
--- NOTE | 2023-07-04 08:26 | A.OFFPC_ITS ---
Vital Signs 07/04/23 08:26 Height 5 ft 11 in Weight 246 lb BMI 34.3 BP 130/78 Blood Pressure Location Lt brachial Position Sitting Pulse 70 Pulse Source Pulse Oximeter Pulse Oximetry (%) 96 Oxygen Delivery Method Room Air Intake Visit Reasons: f/u hypertension and blood sugars Intake Note: Patient is here to follow up on hypertension and blood sugars. Allergies morphine [MORPHINE] Allergy (Severe, Verified 07/04/23 08:28) CONFUSION oxycodone [OXYCODONE] Allergy (Severe, Verified 07/04/23 08:28) CONFUSION hydrochlorothiazide [Hydrochlorothiazide] Allergy (Mild, Verified 07/04/23 08:28) MUSCLE CRAMPS, leg cramps lisinopril [From Zestril] Allergy (Mild, Verified 07/04/23 08:28) COUGH amlodipine [From Norvasc] Adverse Reaction (Mild, Verified 07/04/23 08:28) DIZZINESS irbesartan [From Avapro] Adverse Reaction (Mild, Verified 07/04/23 08:28) DIZZINESS Medication List - Last Reconciled 07/04/23 by Yfn Tran MD aspirin 81 mg PO DAILY cranberry 405 mg PO DAILY finasteride 5 mg PO DAILY metoprolol succinate ER 150 mg (1.5 x 100 mg) PO BID 90 days pantoprazole 40 mg PO DAILY simvastatin 80 mg PO BEDTIME tamsulosin 0.8 mg (2 x 0.4 mg) PO DAILY Tobacco use date assessed: 07/04/23 Fall risk assessment: No Falls in past year Last assessed Fall Risk: 07/04/23 Dental Screening Dental Screen Date: 07/04/23 Did you have a dental visit in the last 12 months?: Yes Did you have a dental problem in the last 6 months where you did not have access to dental care?: No Was dental information given to patient?: Patient has dentist HPI f/u hypertension and blood sugars HPI Details 83 y/o male presents to f/u hypertension and elevated fasting blood sugars. Hx of CAD. Blood pressure today 130/78. He is on metoprolol 150mg. A1c today 07/04/23 5.1%. [facility] Medical History (Updated 07/04/23 @ 09:03 by Lincoln Pedro) UTI (urinary tract infection) High cholesterol CAD (coronary artery disease) BPH (benign prostatic hyperplasia) Surgical History S/P triple vessel bypass Household Members: Spouse Housing: House Do you presently have visiting nurse or other home services: No Alcohol intake: unknown Patient Tobacco Use Status: Never used Tobacco e-Cigarette/Vaping Use: Never Used Second Hand Smoke Exposure: No service: No Current occupational status: retired (20 years) and disabled Current occupational exposures/hazards: No Cognitive needs: No Hearing needs: No Vision needs: Yes (Glasses) Questionnaire Thrive Questionnaire Date Thrive assessed: 08/26/22 SHAYLEE-7 AMB Questionnaire SHAYLEE-7 Date SHAYLEE - 7 assessed: 08/26/22 Source: Developed by Drs. Dewayne Eden, Drea Delgado, Pierce Cao and colleagues, with an educational pj from [employer]. Review of Systems Const Denies chills, Denies fatigue, Denies fever(s), Denies headache(s) and Denies weakness ENT Denies dizziness and Denies headache(s) Card Denies dyspnea Resp Denies cough, Denies dyspnea, Denies wheezing and Denies other (shortness of breath) Musc Denies numbness and Denies tingling Neuro Denies dizziness, Denies headache(s), Denies numbness, Denies tingling and Denies weakness Psych Denies anxiety and Denies depression Endo Denies fatigue Aller/Immun Denies wheezing Physical exam (Primary Care) Vital Signs: Last Vital Signs Pulse 70 07/04/23 08:26 BP 130/78 07/04/23 08:26 Pulse Ox 96 07/04/23 08:26 Oxygen Delivery Method Room Air 07/04/23 08:26 BMI result Body Mass Index 34.3 Tobacco/Smoking Status: Tobacco use Status Tobacco use date assessed 07/04/23 07/04/23 08:37 Patient Tobacco Use Status Never used Tobacco 07/04/23 08:27 e-Cigarette/Vaping Use Never Used 07/04/23 08:27 Thrive Assessment: Date of Thrive Assessment Date Thrive assessed 08/26/22 07/04/23 08:27 Const General: well developed; No acute distress Nutritional Appearance: obese Orientation/consciousness: patient oriented x3 HENMT Head: Yes normocephalic and Yes atraumatic Eyes General: appearance normal, both eyes and all related structures Pupils: Equal, round and reactive pupils present EOM: EOMs intact bilaterally Resp Effort & Inspection: normal respiratory effort Auscultation: clear to auscultation bilaterally Cardio Rate: regular rate Rhythm: regular rhythm Heart sounds: S1 normal heart sound present, S2 normal heart sound present, no gallops, no murmurs and no rubs Neuro General: patient oriented x3 and gait normal Cranial nerves: Yes Equal, round and reactive pupils present Psych Affect: normal affect Results AMB Hemoglobin A1c AMB Hemoglobin A1c 5.1 % Last Edit by Osiris Cervantes CMA on 07/04/23 08:50 Results Reviewed Results Reviewed: Laboratory Last Values Hgb A1c (Clinic) 5.1 % (4.0-6.0) 07/04/23 08:49 Assessment and Plan Assessment & Plan (1) Essential hypertension: Code(s): I10 - Essential (primary) hypertension Plan: Blood?pressure?is?fairly?well?controlled.??Goal?is?less?than?130/80?for?patient? with?coronary?artery?disease. Continue?current?medication?regimen Encouraged?weight?loss,?diet?low?in?salt/sodium?and?encouraged?exercise (2) Elevated fasting glucose: Code(s): R73.01 - Impaired fasting glucose Plan: A1c?5.1%?today.??Steady?and?in?normal?range (3) CAD (coronary artery disease): Code(s): I25.10 - Atherosclerotic heart disease of [place] coronary artery without angina pectoris Plan: Stable Follow-up?with?Cardiology?as?recommended (4) BPH (benign prostatic hyperplasia): Code(s): N40.0 - Benign prostatic hyperplasia without lower urinary tract symptoms Plan: Urology?has?put?him?on?finasteride He?has?follow-up?with??scheduled Orders: Orders AMB Hemoglobin A1c Today Z13.9 - Encounter for screening, unspecified Coding Level of Care Code Est Pt Level 4 (45255) Diagnoses Essential hypertension I10 Elevated fasting glucose R73.01 CAD (coronary artery disease) I25.10 BPH (benign prostatic hyperplasia) N40.0
== END 2023-07-04 09:17 | disposition home or self-care (01) ==
PROVIDERS: PCP Family Medicine; Visit Provider Family Medicine
DX: I10 Essential (primary) hypertension (principal); R73.01 Impaired fasting glucose; I25.10 Atherosclerotic heart disease of native coronary artery without angina pectoris; N40.0 Benign prostatic hyperplasia without lower urinary tract symptoms
CPT/HCPCS: 83036; 99214

== ENCOUNTER 2023-10-01 07:08 | Emergency (ER) | payer MEDICARE, SELFPAY ==
--- NOTE | ~2023-10-01 | XR_ITS ---
EXAMINATION: XR CHEST CLINICAL INFORMATION: Cough COMPARISON: None available. TECHNIQUE: Frontal view of the chest was obtained. FINDINGS: No significant abnormality is noted involving the heart, lungs, mediastinum, bony thorax or soft tissues. Patient is status post median sternotomy XR/XR chest 1V IMPRESSION: Unremarkable examination.
[2023-10-01 07:26] VITALS: BP 159/76; PULSE 86; RESP 16; TEMP 36.4; O2SAT 93; BMI 34.6
[2023-10-01 07:33] VITALS: O2SAT 93
--- NOTE | 2023-10-01 07:42 | ED.URI ---
HPI - URI/Sore Throat General Chief Complaint: Upper Respiratory Symptoms Stated Complaint: Fever/UTI?/Cough Time Seen by Provider: 10/01/23 07:35 Source: patient and family (Spouse) Mode of arrival: ambulatory Limitations: no limitations History of Present Illness HPI Narrative: 83-year-old male came in with his for evaluation fever chills, coughing, runny nose, nasal congestion. is concern of fever at home of 101 for the past 3 days, no sick contacts, no recent travel, no recent use of antibiotic. Patient is prone to UTI. No recent travel, no low will extremity swelling or tenderness, no history of pulmonary embolism or DVT. Otherwise no CP or SOB, no abdominal pain, no nausea, no vomiting, no diarrhea. Related Data Home Medications Medication Instructions Recorded Confirmed pantoprazole 40 mg tablet,delayed 40 mg PO DAILY 05/18/20 07/04/23 release simvastatin 80 mg tablet 80 mg PO BEDTIME 05/18/20 07/04/23 aspirin 81 mg tablet 81 mg PO DAILY 07/21/20 07/04/23 cranberry 405 mg capsule 405 mg PO DAILY 07/04/23 07/04/23 finasteride 5 mg tablet 5 mg PO DAILY 07/04/23 07/04/23 Previous Rx's Medication Instructions Recorded tamsulosin 0.4 mg capsule 0.8 mg (2 x 0.4 mg) PO DAILY #180 03/22/22 caps metoprolol succinate 100 mg 150 mg (1.5 x 100 mg) PO BID 90 06/02/23 tablet,extended release 24 hr days #270 tabs Allergies Allergy/AdvReac Type Severity Reaction Status Date / Time morphine [MORPHINE] Allergy Severe CONFUSION Verified 07/04/23 08:28 oxycodone [OXYCODONE] Allergy Severe CONFUSION Verified 07/04/23 08:28 hydrochlorothiazide Allergy Mild MUSCLE Verified 07/04/23 08:28 [Hydrochlorothiazide] CRAMPS, leg cramps lisinopril [From Zestril] Allergy Mild COUGH Verified 07/04/23 08:28 amlodipine [From Norvasc] AdvReac Mild DIZZINESS Verified 07/04/23 08:28 irbesartan [From Avapro] AdvReac Mild DIZZINESS Verified 07/04/23 08:28 Review of Systems Review of Systems: All other systems are reviewed and are negative Constitutional: Reports as per HPI and Reports no additional constitutional complaints Eyes: Reports as per HPI and Reports no additional eye complaints Reports system reviewed and no additional complaints, except as documented Cardiovascular: Reports as per HPI and Reports no additional cardiovascular complaints Respiratory: Reports as per HPI and Reports no additional respiratory complaints Gastrointestinal: Reports as per HPI and Reports no additional gastrointestinal complaints Genitourinary: Reports no additional female genitourinary complaints Musculoskeletal: Reports no additional musculoskeletal complaints Skin/Breast: Reports system reviewed and no additional complaints, except as docu Psychiatric: Reports no additional psychiatric complaints Endocrine: Reports no additional endocrine complaints Hematologic/Lymphatic: Reports no additional hematologic/lymphatic complaints Allergic/Immunologic: Reports no additional allergic/immunologic complaints Reports system reviewed and no additional complaints, except as documented and Reports Abnormal speech present [facility] Past Medical History Medical History UTI (urinary tract infection) High cholesterol CAD (coronary artery disease) BPH (benign prostatic hyperplasia) Surgical History S/P triple vessel bypass Social History Social History Household Members: Spouse Housing: House Do you presently have visiting nurse or other home services: No Alcohol intake: unknown Patient Tobacco Use Status: Never used Tobacco Smoked in Last 30 Days: No e-Cigarette/Vaping Use: Never Used Second Hand Smoke Exposure: No Use of substances other than those prescribed or required for medical reasons: No Advance Directives: No Advance Directives Information Provided: No service: No Current occupational status: retired (20 years) and disabled Current occupational exposures/hazards: No Cognitive needs: No Hearing needs: No Vision needs: Yes (Glasses) Physical Exam Vital Signs: Vital Signs: Last Vital Signs Temp 98.2 F 10/01/23 09:10 Pulse 82 10/01/23 09:14 Resp 16 10/01/23 09:10 BP 157/75 H 10/01/23 09:14 Pulse Ox 96 10/01/23 09:10 O2 Del Method Room Air 10/01/23 09:10 BMI result Body Mass Index 34.6 Vital signs have been reviewed and appear to be correct. Blood pressure elevated. Heart rate normal. Respiratory rate normal. Temperature normal. Oxygen saturation normal. Appearance: Alert. Oriented X3. No acute distress. Head: Normal external exam. Normocephalic. Atraumatic. No [place] signs noted. No raccoon eyes noted Eyes: PERRLA. EOMI. Conjunctiva and sclera normal. Eyelids normal. ENT: TM's Normal. Pharynx normal. Uvula midline. Moist mucous membranes. No trismus noted. No drooling noted. No muffled voice noted. Neck: Normal inspection. Neck supple. FROM. No adenopathy. Thyroid Normal. No meningeal signs. No neck mass noted. CVS: Normal heart rate and rhythm. Heart sound normal. No murmurs noted. Pulses normal throughout. Respiratory: No respiratory distress. Painless inspiration. Breath sounds normal. No wheezes/rales/rhonchi noted. Chest nontender. No accessory muscle usage noted or decreased air movement noted. Abdomen: Soft and nontender. Bowel sounds normal in all 4 quadrants. No distention noted. No organomegaly noted. No visible injury noted. Back: No CVA tenderness. Full range of motion noted. Skin: Skin warm and dry. Normal skin color. Normal skin turgor. No rashes/lesions/lacerations noted. Extremities: No lower extremity edema. Extremities exhibit normal range of motion. Extremities nontender. Neuro: Oriented X 3. Cranial nerve exam: II-XII are grossly intact No motor deficit. No sensory deficit. Reflexes normal. Course Reevaluation(s) Reevaluation #1: Came in with some upper respiratory symptoms and fever, patient has negative RSV/COVID/influenza, chest x-ray showing no pneumonia, labs are unremarkable, vitals sign are stable. Patient was instructed to follow-up with PCP. Time: 10:27 Medications Administered Discontinued Medications Generic Name Dose Route Start Last Admin Trade Name Freq PRN Reason Stop Dose Admin Sodium Chloride 1,000 mls @ 999 mls/hr 10/01/23 07:41 10/01/23 10:09 Ns IV 10/01/23 08:41 Infused .Q1H1M ONE Infusion Medical Decision Making Differential Diagnosis Differential Diagnoses: The differential diagnosis associated with the presentation includes (Pneumonia, pneumothorax, pleural effusion, RSV, influenza, COVID 19, hypoxia, severe anemia, electrolyte derangement.) Admission/Observation Consideration of admission/observation: Escalation of care including admission/observation considered Lab Data MDM Lab Attestation statement: I reviewed the patient's lab results. 10/01/23 08:07 10/01/23 08:07 Labs: Lab Results 10/01/23 10/01/23 Range/Units 08:07 09:09 WBC 9.5 (4.8-10.8) X10*3/uL RBC 4.86 (4.60-5.80) X10*6/uL Hgb 14.8 (14.0-18.0) g/dl Hct 42.9 (42.0-52.0) % MCV 88.3 (80.0-98.0) fL MCH 30.5 (27.0-33.0) pg MCHC 34.5 (31.0-36.0) g/dl RDW 12.9 (11.0-16.0) % Plt Count 152 L (160-400) X10*3/uL MPV 9.4 (9.4-12.4) fL Immature Gran % (Auto) 0.2 (0.0-0.4) % Neut % (Auto) 74.3 H (45-73) % Lymph % (Auto) 13.8 L (20-40) % [place] % (Auto) 10.2 (2-11) % Eos % (Auto) 1.1 (0-4) % Baso % (Auto) 0.4 (0-2) % Lymph # (Auto) 1.3 (1.2-4.9) X10*3/uL [place] # (Auto) 1.0 (0.1-1.2) X10*3/uL Eos # (Auto) 0.1 (0.0-0.4) X10*3/uL Baso # (Auto) 0.0 (0.0-0.2) X10*3/uL Abs Immat Gran (auto) 0.02 (0.00-0.03) X10*3/uL Absolute Neuts (auto) 7.0 (2.0-8.3) x10*3/uL Absolute Nucleated RBC 0.000 (0.0-0.012) X10*3/uL Nucleated RBC % (auto) 0.0 (0.0-0.2) /100WBC Sodium 140 (135-145) mmol/L Potassium 3.9 (3.3-5.1) mmol/L Chloride 104 (96-108) mmol/L Carbon Dioxide 26 (22-29) mmol/L Anion Gap 14 (12-20) BUN 13 (9-16) mg/dL Creatinine 1.07 (0.5-1.4) mg/dL Estim Creat Clear Calc 64.7 Estimated GFR > 60 Random Glucose 127 H (60-115) mg/dL Lactic Acid 1.0 (0.5-2.0) mmol/L Calcium 9.6 (8.4-10.2) mg/dL Total Bilirubin 3.3 H (0.0-1.0) mg/dL Direct Bilirubin 0.4 (0.0-0.5) mg/dL AST 19 (5-37) U/L ALT 14 (0-40) U/L Alkaline Phosphatase 210 H (39-117) U/L Troponin I High Sens 13.3 (<3.5-35.0) ng/L B-Natriuretic Peptide 171 H (<100) pg/mL Total Protein 7.1 (6.5-8.0) g/dL Albumin 4.0 (3.5-5.0) g/dL Lipase 14 (8-78) U/L Urine Color Dark Yellow Urine Appearance Clear Urine pH 6.0 (5.0-9.0) Ur Specific [place] 1.020 (1.005-1.025) Urine Protein Negative (Neg-Trace) mg/dL Urine Glucose (UA) Negative (Negative) mg/dL Urine Ketones Trace (Negative) mg/dL Urine Blood Negative (Negative) Urine Nitrite Negative (Negative) Ur Leukocyte Esterase Negative (Negative) Influenza Type A (PCR) NEGATIVE (Negative) Influenza Type B (PCR) NEGATIVE (Negative) RSV RNA Qual (PCR) NEGATIVE (Negative) SARS-CoV-2 RNA (RT-PCR) NEGATIVE (Negative) Independent Interpretation I performed an independent interpretation of an: Plain X-Ray (Chest: Unremarkable examination.) Radiology Impression Discussion of test interpretation with radiology: I have reviewed the radiologist's reading. Discharge Plan Discharge Clinical Impression: Breath shortness Patient Disposition: Home, Self-Care Instructions: Shortness of Breath (ED) Prescriptions: No Action tamsulosin 0.4 mg capsule 0.8 mg PO DAILY Qty: 180 1RF metoprolol succinate 100 mg tablet extended release 24 hr 150 mg PO BID 90 Days Qty: 270 4RF aspirin 81 mg Tablet 81 mg PO DAILY pantoprazole 40 mg tablet,delayed release (DR/EC) 40 mg PO DAILY simvastatin 80 mg tablet 80 mg PO BEDTIME finasteride 5 mg tablet 5 mg PO DAILY cranberry 405 mg capsule 405 mg PO DAILY Rx Instructions: administer with a meal Referrals: Yfn Tran MD [Primary Care Provider] -
[2023-10-01] MEDS: 0.9 % Sodium Chloride 1,000 ML 999 ML IV (08:12)
--- NOTE | 2023-10-01 08:16 | PC.NURSE ---
pt a&o x4, pleasant, calm, and cooperative. 20G IV placed to LAC, labs drawn and sent. fluids hung per oct, chest x-ray taken. urinal at bedside for UA. pt resting quietly on stretcher in no apparent distress. call garg within reach. rr even/unlabored. plan of care ongoing.
[2023-10-01 08:17] LABS: MANUAL DIFF FLAG NO
[2023-10-01 08:28] LABS: Basophils Percent Auto 0.4 % (0-2); Eosinophils Absolute Auto 0.1 X10*3/uL (0.0-0.4); Eosinophils Percent Auto 1.1 % (0-4); Hematocrit 42.9 % (42.0-52.0); Hemoglobin 14.8 g/dl (14.0-18.0); Imm Gran Abs Auto 0.02 X10*3/uL (0.00-0.03); Imm Gran Pct Auto 0.2 % (0.0-0.4); Lymphocytes Absolute Auto 1.3 X10*3/uL (1.2-4.9); Lymphocytes Percent Auto 13.8 % (20-40); Mean Corpuscular HGB Conc 34.5 g/dl (31.0-36.0); Mean Corpuscular Hemoglobin 30.5 pg (27.0-33.0); Mean Corpuscular Volume 88.3 fL (80.0-98.0); Mean Platelet Volume 9.4 fL (9.4-12.4); Monocytes Percent Auto 10.2 % (2-11); Neutrophils Percent Auto 74.3 % (45-73); Platelet Count 152 X10*3/uL (160-400); Red Blood Count 4.86 X10*6/uL (4.60-5.80); Red Cell Distribution Width 12.9 % (11.0-16.0); White Blood Count 9.5 X10*3/uL (4.8-10.8)
[2023-10-01 08:38] LABS: Alanine Aminotransferase 14 U/L (0-40); Alkaline Phosphatase 210 U/L (39-117); Anion Gap 14 (12-20); Aspartate Amino Transferase 19 U/L (5-37); B Type Natriuretic Peptide 171 pg/mL (<100); Bilirubin Direct 0.4 mg/dL (0.0-0.5); Bilirubin Total 3.3 mg/dL (0.0-1.0); Blood Urea Nitrogen 13 mg/dL (9-16); Calcium 9.6 mg/dL (8.4-10.2); Carbon Dioxide 26 mmol/L (22-29); Chloride 104 mmol/L (96-108); Creatinine Clr Calc Pharmacy 64.7; Estimated Glomerular Filt Rate > 60; Glucose Random 127 mg/dL (60-115); Lipase 14 U/L (8-78); Potassium 3.9 mmol/L (3.3-5.1); Sodium 140 mmol/L (135-145); Total Protein 7.1 g/dL (6.5-8.0)
[2023-10-01 08:45] LABS: Troponin-I High Sensitivity 13.3 ng/L (<3.5-35.0)
[2023-10-01 09:02] LABS: Influenza A PCR NEGATIVE (Negative); Influenza B PCR NEGATIVE (Negative); Resp Syncy Virus RNA Qual PCR NEGATIVE (Negative); SARS COV2 PCR INHOUSE NEGATIVE (Negative)
[2023-10-01 09:10] VITALS: BP 170/71; PULSE 77; RESP 16; TEMP 36.8; O2SAT 96
[2023-10-01 09:14] VITALS: BP 157/75; PULSE 82
[2023-10-01 09:21] LABS: Appearance Urine Clear; Color Urine Dark Yellow; Glucose Urine UA Negative (Negative); Leukocyte Esterase Urine Negative (Negative); Nitrite Urine Negative (Negative); Urine Blood Negative (Negative); Urine Ketones Trace mg/dL (Negative); Urine Protein Negative (Neg-Trace)
[2023-10-01 10:42] VITALS: BP 152/71; PULSE 78; RESP 16; TEMP 37.1; O2SAT 95
== END 2023-10-01 10:55 | disposition home or self-care (01) ==
PROVIDERS: Emergency Provider Emergency Medicine; PCP Family Medicine
DX: R06.02 Shortness of breath (principal); R50.9 Fever, unspecified; R05.9 Cough, unspecified; R09.81 Nasal congestion; Z79.899 Other long term (current) drug therapy; Z11.52 Encounter for screening for COVID-19; Z20.822 Contact with and (suspected) exposure to COVID-19
CPT/HCPCS: 0241U; 36415; 71045; 80048; 80076; 81003; 83605; 83690; 83880; 84484; 85025; 87040; 96360; 96361; 99284

== ENCOUNTER 2023-11-17 08:43 | Outpatient (AMB) | payer MEDICARE, SELFPAY ==
[2023-11-17 09:11] VITALS: BP 152/82; PULSE 71; O2SAT 97; BMI 34.3
--- NOTE | 2023-11-17 09:11 | A.OFFPC_ITS ---
Vital Signs 11/17/23 09:11 Height 5 ft 10 in Weight 239 lb BMI 34.3 BP 152/82 H Blood Pressure Location Lt brachial Position Sitting Pulse 71 Pulse Source Pulse Oximeter Pulse Oximetry (%) 97 Oxygen Delivery Method Room Air Intake Visit Reasons: Extended exam with f/u labs and health maint Intake Note: Patient is here for extended exam and follow up on labs and health maintenance. Allergies morphine [MORPHINE] Allergy (Severe, Verified 11/17/23 09:16) CONFUSION oxycodone [OXYCODONE] Allergy (Severe, Verified 11/17/23 09:16) CONFUSION hydrochlorothiazide [Hydrochlorothiazide] Allergy (Mild, Verified 11/17/23 09:16) MUSCLE CRAMPS, leg cramps lisinopril [From Zestril] Allergy (Mild, Verified 11/17/23 09:16) COUGH amlodipine [From Norvasc] Adverse Reaction (Mild, Verified 11/17/23 09:16) DIZZINESS irbesartan [From Avapro] Adverse Reaction (Mild, Verified 11/17/23 09:16) DIZZINESS Medication List - Last Reconciled 11/17/23 by Yfn Tran MD aspirin 81 mg PO DAILY cranberry 405 mg PO DAILY finasteride 5 mg PO DAILY metoprolol succinate ER 150 mg (1.5 x 100 mg) PO BID 90 days pantoprazole 40 mg PO DAILY simvastatin 80 mg PO BEDTIME tamsulosin 0.8 mg (2 x 0.4 mg) PO DAILY Tobacco use date assessed: 07/04/23 Fall risk assessment: No Falls in past year Last assessed Fall Risk: 11/17/23 Dental Screening Dental Screen Date: 11/17/23 Did you have a dental visit in the last 12 months?: Yes Did you have a dental problem in the last 6 months where you did not have access to dental care?: No Was dental information given to patient?: Patient has dentist HPI Extended exam with f/u labs and health maint HPI Details 83 y/o male presents for an extended exa m with f/u labs and health maintenance. Labs were drawn 10/01/23. Reviewed labs with pt. Elevated random glucose of 127. A1c today 11/17/23 5.3%. Elevated BNP of 171 pg.mL. No recent lipid panel. Blood pressure today 152/82. He is on metoprolol 150mg b.i.d Pt reports blood pressure at home have been in the 120-130s. He notes blood pressures have been higher in hospital settings. He gets exercise daily. HPI Comments History of Present Illness Details Documentation assistance for Yfn Tran MD, was provided by Lincoln Pedro,? [employer] Consultant on 11/17/2023 9:43 AM EST. I, Dr. Tran, have read, observed, and verified documentation. [facility] Medical History UTI (urinary tract infection) High cholesterol CAD (coronary artery disease) BPH (benign prostatic hyperplasia) Surgical History S/P triple vessel bypass Social History Household Members: Spouse Housing: House Do you presently have visiting nurse or other home services: No Alcohol intake: unknown Patient Tobacco Use Status: Never used Tobacco e-Cigarette/Vaping Use: Never Used Second Hand Smoke Exposure: No service: No Current occupational status: retired (20 years) and disabled Current occupational exposures/hazards: No Cognitive needs: No Hearing needs: No Vision needs: Yes (Glasses) Questionnaire PHQ-9 Over the last 2 weeks, how often have you been bothered by any of the following problems? 1. Little interest or pleasure in doing things: not at all 2. Feeling down, depressed, or hopeless: not at all 3. Trouble falling or staying asleep, or sleeping too much: not at all 4. Feeling tired or having little energy: not at all 5. Poor appetite or overeating: not at all 6. Feeling bad about yourself - or that you are a failure or have let yourself or your family down: not at all 7. Trouble concentrating on things, such as reading the newspaper or watching television: not at all 8. Moving or speaking so slowly that other people could have noticed. Or the opposite - being so fidgety or restless that you have been moving around a lot more than usual: not at all 9. Thoughts that you would be better off or of hurting yourself in some way: not at all Total score: 0 Depression Screening Interpretation: Negative Depression Screening Done: Yes Source: Developed by Drea Rodriguez, Pierce Cao and colleagues, with an educational pj from [employer]. Thrive Questionnaire Date Thrive assessed: 11/17/23 I am a: Patient What is your living situation today?: I have a steady place to live Within the past 12 months, did the food you bought not last and you didn't have the money to get more?: Never true Within the past 12 months, did you worry whether your food would run out before you got money to buy more?: Never true Do you have trouble paying for medicines?: No Do you have trouble getting transportation to medical appointments?: No Do you have trouble paying your heating and electricity bill?: No Do you have trouble taking care of your child, family member or friend?: No Do you have trouble with day-to-day activities such as bathing, preparing meals, shopping, managing finances, etc.?: No Are you currently unemployed and looking for a job?: No Are you interested in more education?: No THRIVE Score: 0 AUDIT C Alcohol Use Questionnaire (AUDIT-C) 1. How often do you have a drink containing alcohol?: Monthly or less 2. How many drinks containing alcohol do you have on a typical day when you are drinking?: 1 or 2 3. How often do you have six or more drinks on one occasion?: Never Total Score: 1 SHAYLEE-7 AMB Questionnaire SHAYLEE-7 Date SHAYLEE - 7 assessed: 11/17/23 Feeling nervous, anxious, or on edge: 0 = Not at all Not being able to stop or control worryin = Not at all Worrying too much about different things: 0 = Not at all Trouble relaxin = Not at all Being so restless that it is hard to sit still: 0 = Not at all Becoming easily annoyed or irritable: 0 = Not at all Feeling afraid as if something awful might happen: 0 = Not at all Total SHAYLEE-7 score (0-4 normal; 5-9 mild; 10-14 moderate; 15-21 severe): 0 Source: Developed by Drea Rodriguez Kurt Kroenke and colleagues, with an educational pj from [employer]. Review of Systems Const Denies chills, Denies fatigue, Denies fever(s), Denies headache(s) and Denies weakness Eyes Denies change in vision ENT Denies dizziness, Denies headache(s), Denies hearing loss, Denies nasal congestion, Denies sinus pain, Denies sinus pressure and Denies sore throat Card Denies chest pain, Denies lightheadedness, Denies dyspnea and Denies other (palpitations) Resp Denies cough, Denies dyspnea and Denies wheezing GI Denies abdominal pain, Denies melena, Denies hematochezia, Denies change in bowel habits, Denies dyspepsia and Denies nausea Denies hematuria and Denies dysuria Musc Denies abnormal gait, Denies myalgias, Denies arthralgias, Denies numbness and Denies tingling Skin/Breast Denies rash, Denies unusual bruising and Denies wounds Neuro Denies abnormal gait, Denies dizziness, Denies headache(s), Denies memory loss, Denies numbness, Denies Sensory deficit (Neuro), Denies tingling and Denies weakness Psych Denies anxiety, Denies depression and Denies memory loss Endo Denies cold intolerance, Denies fatigue, Denies heat intolerance, Denies polydipsia and Denies polyuria Tod/Lymph Denies easy bleeding and Denies easy bruising Aller/Immun Denies wheezing Physical exam (Primary Care) Vital Signs: Last Vital Signs Pulse 71 11/17/23 09:11 BP 152/82 H 11/17/23 09:11 Pulse Ox 97 11/17/23 09:11 Oxygen Delivery Method Room Air 11/17/23 09:11 BMI result Body Mass Index 34.3 Tobacco/Smoking Status: Tobacco use Status Tobacco use date assessed 07/04/23 11/17/23 09:21 Patient Tobacco Use Status Never used Tobacco 11/17/23 09:21 e-Cigarette/Vaping Use Never Used 11/17/23 09:21 PHQ-9: PHQ-9 Score PHQ-9: Total score 0 11/17/23 09:21 Depression Screening Interpretation: Negative Thrive Assessment: Date of Thrive Assessment Date Thrive assessed 11/17/23 11/17/23 09:21 Const General: no acute distress, well developed, alert and awake Nutritional Appearance: well nourished Orientation/consciousness: patient oriented x3 [facility] Head: Yes normocephalic and Yes atraumatic Ears: hearing grossly normal bilaterally and TM's normal bilaterally General nose exam: Normal external nose present and Normal nares present Mouth: Normal oral and palatal mucosa present and moist mucous membranes Teeth and gingiva: dentition normal Throat: Yes posterior oropharynx normal Eyes General: appearance normal, both eyes and all related structures Pupils: Equal, round and reactive pupils present and Pupil accommodation reflex normal EOM: EOMs intact bilaterally Neck Neck: Yes normal visual inspection, Yes no lymphadenopathy and Yes trachea midline Thyroid: Thyroid normal Carotids: no bruits Lymphatic: no lymphadenopathy noted Chest Chest palpation & inspection: normal inspection of the chest Resp Effort & Inspection: normal respiratory effort Auscultation: clear to auscultation bilaterally Cardio Rate: regular rate Rhythm: regular rhythm Heart sounds: S1 normal heart sound present, S2 normal heart sound present, no gallops, Murmur heart sound present (2/6 systolic murmur) and no rubs Bruits: no abdominal aortic bruits and no carotid bruits GI Palpation (GI): No Abdominal aortic bruit present, Soft to palpation, nontender, No hepatosplenomegaly present and No Rebound tenderness present Auscultation: normal bowel sounds General: Yes no CVA tenderness Back/Spine/Pelvis Back: no CVA tenderness Cervical Spine: cervical ROM normal and No Cervical spine tenderness Thoracic/Lumbar Spine: thoraco-lumbar ROM normal, No pain with thoraco-lumbar ROM, No thoracic spinal tenderness and No lumbar spinal tenderness Skin Lesions: no lesions Rashes: no rashes Trauma: no lacerations or abrasions Wounds: no wounds Nails: normal Neuro General: patient oriented x3 Cranial nerves: Yes Equal, round and reactive pupils present Cognition (Neuro): normal cognition Gait exam (Neuro): Normal gait present Motor exam (neuro): 5/5 motor strength present throughout Sensory Exam: No Sensory deficit (Neuro) Deep tendon reflexes (DTR's): Right patellar reflex intensity grade: 2+ and Left patellar reflex intensity grade: 2+ Extrem General: Yes normal to inspection and No edema Psych Appearance: grossly normal Affect: normal affect Attitude: cooperative Thought process: Normal thought process present Assessment and Plan Assessment & Plan (1) Essential hypertension: Code(s): I10 - Essential (primary) hypertension Plan: Blood?pressures?at?home?run?in?120s/70s rather?consistently. Goal?is?less?than?130/80. Blood?pressure?is?in?the?office?or?higher?but?he?has?documented?white?coat?syndr ome. Continue?current?medication?regimen (2) CAD (coronary artery disease): Code(s): I25.10 - Atherosclerotic heart disease of [place] coronary artery without angina pectoris Plan: Stable. Follow-up?with?Dr. Coombs as?recommended (3) Heart murmur: Code(s): R01.1 - Cardiac murmur, unspecified Plan: 2/6?systolic?murmur.??Stable (4) Total bilirubin, elevated: Code(s): R17 - Unspecified jaundice Plan: Unclear?cause Will?repeat?this (5) Elevated fasting glucose: Code(s): R73.01 - Impaired fasting glucose Plan: A1c?5.3%?is?in?normal?range (6) White coat syndrome with diagnosis of hypertension: Code(s): I10 - Essential (primary) hypertension Plan: As?above (7) Adult general medical exam: Code(s): Z00.00 - Encounter for general adult medical examination without abnormal findings Plan: 83-year-old?male?presents?for?complete?physical?exam Stable Coding Level of Care Code Est Pt Level 4 (76656) Diagnoses Essential hypertension I10 CAD (coronary artery disease) I25.10 Heart murmur R01.1 Total bilirubin, elevated R17 Elevated fasting glucose R73.01 White coat syndrome with diagnosis of hypertension I10 Adult general medical exam Z00.00
== END 2023-11-17 09:59 | disposition home or self-care (01) ==
PROVIDERS: PCP Family Medicine; Visit Provider Family Medicine
DX: I10 Essential (primary) hypertension (principal); I25.10 Atherosclerotic heart disease of native coronary artery without angina pectoris; R01.1 Cardiac murmur, unspecified; R17 Unspecified jaundice; R73.01 Impaired fasting glucose
CPT/HCPCS: 83036; 99214

== ENCOUNTER 2023-11-17 09:46 | Outpatient (REF) | payer MEDICARE, SELFPAY ==
[2023-11-17 11:26] LABS: MANUAL DIFF FLAG NO
[2023-11-17 11:34] LABS: Appearance Urine Clear; Color Urine Yellow; Glucose Urine UA Negative (Negative); Leukocyte Esterase Urine Negative (Negative); Nitrite Urine Negative (Negative); Urine Blood Negative (Negative); Urine Ketones Negative (Negative); Urine Protein Negative (Neg-Trace)
[2023-11-17 11:52] LABS: Basophils Absolute Auto 0.1 X10*3/uL (0.0-0.2); Basophils Percent Auto 0.9 % (0-2); Eosinophils Absolute Auto 0.2 X10*3/uL (0.0-0.4); Hematocrit 42.6 % (42.0-52.0); Hemoglobin 14.4 g/dl (14.0-18.0); Imm Gran Abs Auto 0.01 X10*3/uL (0.00-0.03); Imm Gran Pct Auto 0.2 % (0.0-0.4); Lymphocytes Absolute Auto 1.6 X10*3/uL (1.2-4.9); Mean Corpuscular HGB Conc 33.8 g/dl (31.0-36.0); Mean Corpuscular Hemoglobin 30.6 pg (27.0-33.0); Mean Corpuscular Volume 90.4 fL (80.0-98.0); Mean Platelet Volume 9.7 fL (9.4-12.4); Monocytes Absolute Auto 0.4 X10*3/uL (0.1-1.2); Monocytes Percent Auto 7.5 % (2-11); Neutrophils Absolute Auto 3.3 x10*3/uL (2.0-8.3); Neutrophils Percent Auto 59.4 % (45-73); Platelet Count 148 X10*3/uL (160-400); Red Blood Count 4.71 X10*6/uL (4.60-5.80); Red Cell Distribution Width 14.3 % (11.0-16.0); White Blood Count 5.6 X10*3/uL (4.8-10.8)
[2023-11-17 12:56] LABS: Alanine Aminotransferase 23 U/L (0-40); Albumin Level 4.1 g/dL (3.5-5.0); Alkaline Phosphatase 242 U/L (39-117); Anion Gap 11 (12-20); Aspartate Amino Transferase 33 U/L (5-37); Bilirubin Total 2.4 mg/dL (0.0-1.0); Blood Urea Nitrogen 13 mg/dL (9-16); Calcium 9.6 mg/dL (8.4-10.2); Carbon Dioxide 30 mmol/L (22-29); Chloride 107 mmol/L (96-108); Cholesterol 138 mg/dL (<200); Estimated Glomerular Filt Rate > 60; Glucose Fasting 100 mg/dL (60-99); HDL Cholesterol 59 mg/dL (>40); LDL Cholesterol Calculated 48 mg/dL (<100); Potassium 4.9 mmol/L (3.3-5.1); Sodium 143 mmol/L (135-145); TSH reflex Free T4 3.01 uIU/mL (0.32-4.0); Total Protein 6.9 g/dL (6.5-8.0); Triglycerides 156 mg/dL (<150)
[2023-11-17 12:57] LABS: Creatinine Urine 120.26 mg/dL; Microalbum/Creatinine Ratio Ur 6.6 ug/mg cr (<30)
[2023-11-17 13:08] LABS: Prostate Specific Antigen Scr 2.39 ng/mL (<0.05-4.0)
== END 2023-11-17 09:47 | disposition home or self-care (01) ==
LOC: HO.WFDLDS 09:46
PROVIDERS: Visit Provider Family Medicine
DX: Z00.00 Encounter for general adult medical examination without abnormal findings (principal); I10 Essential (primary) hypertension; Z12.5 Encounter for screening for malignant neoplasm of prostate
CPT/HCPCS: 36415; 80053; 80061; 81003; 82043; 82570; 84153; 84443; 85025

== ENCOUNTER 2024-02-05 11:20 | Outpatient (AMB) | payer MEDICARE, SELFPAY ==
[2024-02-05 11:27] VITALS: BP 130/78; PULSE 65; O2SAT 96; BMI 34.6
--- NOTE | 2024-02-05 11:27 | MHC.PC.OV ---
Vital Signs 02/05/24 11:27 Height 5 ft 10 in Weight 241 lb 2 oz BMI 34.6 BP 130/78 Blood Pressure Location Lt brachial Position Sitting Pulse 65 Pulse Source Pulse Oximeter Pulse Oximetry (%) 96 Oxygen Delivery Method Room Air Intake Visit Reasons: f/u blood sugars, hypertension Intake Note: Patient is here for follow up on blood sugar and hypertension. Allergies morphine [MORPHINE] Allergy (Severe, Verified 02/05/24 11:28) CONFUSION oxycodone [OXYCODONE] Allergy (Severe, Verified 02/05/24 11:28) CONFUSION hydrochlorothiazide [Hydrochlorothiazide] Allergy (Mild, Verified 02/05/24 11:28) MUSCLE CRAMPS, leg cramps lisinopril [From Zestril] Allergy (Mild, Verified 02/05/24 11:28) COUGH amlodipine [From Norvasc] Adverse Reaction (Mild, Verified 02/05/24 11:28) DIZZINESS irbesartan [From Avapro] Adverse Reaction (Mild, Verified 02/05/24 11:28) DIZZINESS Medication List - Last Reconciled 02/05/24 by Yfn Tran MD aspirin 81 mg PO DAILY cranberry 405 mg PO DAILY finasteride 5 mg PO DAILY metoprolol succinate ER 150 mg (1.5 x 100 mg) PO BID 90 days pantoprazole 40 mg PO DAILY simvastatin 80 mg PO BEDTIME tamsulosin 0.8 mg (2 x 0.4 mg) PO DAILY Tobacco use date assessed: 02/05/24 Fall risk assessment: No Falls in past year Last assessed Fall Risk: 02/05/24 Dental Screening Dental Screen Date: 11/17/23 HPI f/u blood sugars, hypertension HPI Details 84 y/o male presents to f/u hypertension, blood sugars. Pt had stated he has white coat syndrome but blood pressures were consistently controlled at home. Blood pressure today 130/78. He is on metoprolo 150mg b.i.d. Labs were drawn 11/17/23. Reviewed labs with pt. Elevated fasting glucose of 100. A1c 5.3%. Triglycerides 156. TC 138. LDL 48. HDL 59. A1c today 02/05/24 is 5.2%. HPI Comments History of Present Illness Details Documentation assistance for Yfn Tran MD, was provided by Lincoln Pedro, Information And Data Architect Analyst on 02/05/2024 at 11:43 AM EST. Gordon, Dr. Tran, have read, observed, and verified documentation. [facility] Medical History UTI (urinary tract infection) High cholesterol CAD (coronary artery disease) BPH (benign prostatic hyperplasia) Surgical History S/P triple vessel bypass Social History Household Members: Spouse Housing: House Do you presently have visiting nurse or other home services: No Alcohol intake: unknown Patient Tobacco Use Status: Never used Tobacco e-Cigarette/Vaping Use: Never Used Second Hand Smoke Exposure: No service: No Current occupational status: retired (20 years) and disabled Current occupational exposures/hazards: No Cognitive needs: No Hearing needs: No Vision needs: Yes (Glasses) Questionnaire Thrive Questionnaire Date Thrive assessed: 11/17/23 SHAYLEE-7 AMB Questionnaire SHAYLEE-7 Date SHAYLEE - 7 assessed: 11/17/23 Source: Developed by Drs. Dewayne Eden, Drea Delgado, Pierce Cao and colleagues, with an educational pj from [employer]. Review of Systems Const Denies chills, Denies fatigue, Denies fever(s), Denies headache(s) and Denies weakness ENT Denies dizziness and Denies headache(s) Card Denies dyspnea Resp Denies cough, Denies dyspnea, Denies wheezing and Denies other (shortness of breath) Musc Denies numbness and Denies tingling Neuro Denies dizziness, Denies headache(s), Denies numbness, Denies tingling and Denies weakness Psych Denies anxiety and Denies depression Endo Denies fatigue Aller/Immun Denies wheezing Physical exam (Primary Care) Vital Signs: Last Vital Signs Pulse 65 02/05/24 11:27 BP 130/78 02/05/24 11:27 Pulse Ox 96 02/05/24 11:27 Oxygen Delivery Method Room Air 02/05/24 11:27 BMI result Body Mass Index 34.6 Tobacco/Smoking Status: Tobacco use Status Tobacco use date assessed 02/05/24 02/05/24 11:35 Patient Tobacco Use Status Never used Tobacco 02/05/24 11:35 e-Cigarette/Vaping Use Never Used 02/05/24 11:35 Thrive Assessment: Date of Thrive Assessment Date Thrive assessed 11/17/23 02/05/24 11:35 Const General: well developed; No acute distress Nutritional Appearance: well nourished Orientation/consciousness: patient oriented x3 HENMT Head: Yes normocephalic and Yes atraumatic Eyes General: appearance normal, both eyes and all related structures Pupils: Equal, round and reactive pupils present EOM: EOMs intact bilaterally Resp Effort & Inspection: normal respiratory effort Auscultation: clear to auscultation bilaterally Cardio Rate: regular rate Rhythm: regular rhythm Heart sounds: S1 normal heart sound present, S2 normal heart sound present, no gallops, no murmurs and no rubs Neuro General: patient oriented x3 and gait normal Cranial nerves: Yes Equal, round and reactive pupils present Psych Affect: normal affect Assessment and Plan Assessment & Plan (1) Essential hypertension: Code(s): I10 - Essential (primary) hypertension Plan: Blood?pressure?is?fairly?well?controlled.??Goal?is?less?than?130/80 Continue?current?medication?regimen Continue?exercise?and?weight?control (2) CAD (coronary artery disease): Code(s): I25.10 - Atherosclerotic heart disease of [place] coronary artery without angina pectoris Plan: Stable Follow-up?with?Cardiology?as?recommended (3) Elevated fasting glucose: Code(s): R73.01 - Impaired fasting glucose Plan: A1c?5.2%?today.??Normal?range. Will?continue?monitor?periodic Orders: Orders AMB Hemoglobin A1c Today Z13.9 - Encounter for screening, unspecified Coding Level of Care Code Est Pt Level 3 (50247) Diagnoses Essential hypertension I10 CAD (coronary artery disease) I25.10 Elevated fasting glucose R73.01
== END 2024-02-05 13:08 | disposition home or self-care (01) ==
PROVIDERS: PCP Family Medicine; Visit Provider Family Medicine
DX: I10 Essential (primary) hypertension (principal); I25.10 Atherosclerotic heart disease of native coronary artery without angina pectoris; R73.01 Impaired fasting glucose
CPT/HCPCS: 83036; 99213

== ENCOUNTER 2024-05-20 16:04 | Outpatient (AMB) | payer MEDICARE, SELFPAY ==
--- NOTE | 2024-05-20 16:18 | MHC.PC.OV ---
Vital Signs 05/20/24 16:20 05/20/24 17:12 Height 5 ft 10 in Weight 245 lb 2 oz BMI 35.2 BP 196/81 H 178/86 H Blood Pressure Location Lt brachial Rt brachial Position Sitting Sitting Respiration 16 Pulse 69 Pulse Source Pulse Oximeter Temp 96.8 F Temp Source Temporal Artery Scan Pulse Oximetry (%) 98 Oxygen Delivery Method Room Air Intake Visit Reasons: fu hypertension/chronic conditions Intake Note: f/u HTN and chronic condition Allergies morphine [MORPHINE] Allergy (Severe, Verified 05/20/24 16:19) CONFUSION oxycodone [OXYCODONE] Allergy (Severe, Verified 05/20/24 16:19) CONFUSION hydrochlorothiazide [Hydrochlorothiazide] Allergy (Mild, Verified 05/20/24 16:19) MUSCLE CRAMPS, leg cramps lisinopril [From Zestril] Allergy (Mild, Verified 05/20/24 16:19) COUGH amlodipine [From Norvasc] Adverse Reaction (Mild, Verified 05/20/24 16:19) DIZZINESS irbesartan [From Avapro] Adverse Reaction (Mild, Verified 05/20/24 16:19) DIZZINESS Tobacco use date assessed: 02/05/24 Dental Screening Dental Screen Date: 11/17/23 HPI fu hypertension/chronic conditions HPI Details 84 y/o male presents to f/u hypertension, elevated fasting blood sugars. Last A1c 02/05/24 5.2%. Blood pressure today 196/81, 69p, 178/86 upon relaxation. He is on metoprolol 150mg b.i.d. Pt notes hx of whitecoat syndrome. [facility] Medical History UTI (urinary tract infection) High cholesterol CAD (coronary artery disease) BPH (benign prostatic hyperplasia) Surgical History S/P triple vessel bypass Social History Household Members: Spouse Housing: House Do you presently have visiting nurse or other home services: No Alcohol intake: unknown Patient Tobacco Use Status: Never used Tobacco e-Cigarette/Vaping Use: Never Used Second Hand Smoke Exposure: No service: No Current occupational status: retired (20 years) and disabled Current occupational exposures/hazards: No Cognitive needs: No Hearing needs: No Vision needs: Yes (Glasses) Questionnaire Thrive Questionnaire Date Thrive assessed: 11/17/23 AUDIT C Alcohol Use Questionnaire (AUDIT-C) 3. How often do you have six or more drinks on one occasion?: Never Total Score: 0 SHAYLEE-7 AMB Questionnaire SHAYLEE-7 Date SHAYLEE - 7 assessed: 11/17/23 Source: Developed by Drs. Dewayne Eden, Drea Delgado, Pierce Cao and colleagues, with an educational pj from [employer]. Review of Systems Const Denies chills, Denies fatigue, Denies fever(s), Denies headache(s) and Denies weakness ENT Denies dizziness and Denies headache(s) Card Denies chest pain, Denies lightheadedness, Denies dyspnea and Denies other (Palpitations) Resp Denies cough, Denies dyspnea, Denies wheezing and Denies other ( shortness of breath) Musc Denies numbness and Denies tingling Neuro Denies dizziness, Denies headache(s), Denies numbness, Denies tingling, Denies paresthesias and Denies weakness Psych Denies anxiety and Denies depression Endo Denies fatigue Aller/Immun Denies wheezing Physical exam (Primary Care) Vital Signs: Last Vital Signs Temp 96.8 F 05/20/24 16:20 Pulse 69 05/20/24 16:20 Resp 16 05/20/24 16:20 BP 196/81 H 05/20/24 16:20 Pulse Ox 98 05/20/24 16:20 Oxygen Delivery Method Room Air 05/20/24 16:20 BMI result Body Mass Index 35.2 Tobacco/Smoking Status: Tobacco use Status Tobacco use date assessed 02/05/24 05/20/24 16:27 Patient Tobacco Use Status Never used Tobacco 05/20/24 16:27 e-Cigarette/Vaping Use Never Used 05/20/24 16:27 Thrive Assessment: Date of Thrive Assessment Date Thrive assessed 11/17/23 05/20/24 16:27 Const General: no acute distress and well developed Nutritional Appearance: well nourished Orientation/consciousness: patient oriented x3 HENMT Head: Yes normocephalic and Yes atraumatic Eyes General: appearance normal, both eyes and all related structures Pupils: Equal, round and reactive pupils present EOM: EOMs intact bilaterally Resp Effort & Inspection: normal respiratory effort Auscultation: clear to auscultation bilaterally Cardio Rate: regular rate Rhythm: regular rhythm Heart sounds: S1 normal heart sound present, S2 normal heart sound present, no gallops, no murmurs and no rubs Neuro General: patient oriented x3 and gait normal Cranial nerves: Yes Equal, round and reactive pupils present Psych Affect: normal affect Coding Level of Care Code Est Pt Level 4 (50688) Diagnoses Essential hypertension I10 CAD (coronary artery disease) I25.10 Assessment & Plan Assessment & Plan (1) Essential hypertension: Code(s): I10 - Essential (primary) hypertension Category: Medical Plan: 84-year-old?male?with?history?of?white?coat. Blood?pressure?significantly?elevated?and?remains?elevated?on?repeat?Check. History?of?CAD?and?goal?is?less?than?130/80. He?will?continue?metoprolol. Will?give?him?a?script?for?losartan?with?parameters; he?will?take?if?SBP?greater?than?140. He?will?let?me?know?if?he?gets?any?dizziness (2) CAD (coronary artery disease): Code(s): I25.10 - Atherosclerotic heart disease of [place] coronary artery without angina pectoris Category: Medical Plan: Stable Follow-up?with?Cardiology?as?recommended Medications: New losartan 25 mg PO DAILY 30 days PRN 30 tabs 3RF SBP > 140 mmHg I10 - Essential (primary) hypertension
[2024-05-20 16:20] VITALS: BP 196/81; PULSE 69; RESP 16; TEMP 36; O2SAT 98; BMI 35.2
[2024-05-20 17:12] VITALS: BP 178/86
== END 2024-05-20 17:09 | disposition home or self-care (01) ==
PROVIDERS: PCP Family Medicine; Visit Provider Family Medicine
DX: I10 Essential (primary) hypertension (principal); I25.10 Atherosclerotic heart disease of native coronary artery without angina pectoris

== ENCOUNTER → 2024-05-20 16:04 | Outpatient (BNVA) | payer MEDICARE, SELFPAY | PROVIDERS: PCP Family Medicine; Visit Provider Family Medicine | DX: I10 Essential (primary) hypertension (principal); I25.10 Atherosclerotic heart disease of native coronary artery without angina pectoris | CPT/HCPCS: 99212 ==

== ENCOUNTER 2024-07-18 06:58 | Emergency (ER) | payer MEDICARE, SELFPAY ==
--- NOTE | ~2024-07-18 | US_ITS ---
EXAMINATION: US TRIPLEX LOWER EXTREMITY, RIGHT CLINICAL INFORMATION: Pain to the back of the knee COMPARISON: None available. TECHNIQUE: Color-flow triplex imaging with spectral analysis and compression Doppler were performed on the right lower extremity. FINDINGS: Respiratory variation, normal compression and augmented flow are noted throughout the right lower extremity. The visualized common femoral vein, superficial femoral vein, profunda femoral vein, popliteal vein and midcalf peroneal and posterior tibial venous segments show no evidence of deep venous thrombosis. There is 3.1 x 0.8 x 2.3cm complex popliteal fossa cyst. Right calf edema. US/US venous duplex LE RT IMPRESSION: No evidence of deep venous thrombosis involving the right lower extremity. 3.1cm Jay's cyst. Electronically signed by: Marlene Fuentes MD 07/18/2024 09:47 AM ROMINA
--- OUTSIDE RECORDS SUMMARY | 2024-07-18 07:00 | XMS_ITS | Patient Health Record ---
Author Organization [facility] Address [address] [place] [id number] Care Team Providers Care Rail Assembler Name Role Phone Yfn Tran Primary Care Provider UnavailAlan Friedman Jr Unavailable [phone] ALLERGIES Allergen (clinical drug ingredient) Drug/Non Drug Allergy documented on EMR Reaction Allergy Type Onset Date Status naproxen Naprosyn Unknown Drug Allergy Active nitrofurantoin Macrodantin Unknown Drug Allergy Active hydrochlorothiazide Hydrochlorothiazide Unknown Drug Aller gy Active irbesartan Avapro Unknown Drug Allergy Active naproxen Aleve Unknown Drug Allergy Active lisinopril Zestril Unknown Drug Allergy Active amlodipine Norvasc Unknown Drug Allergy Active REASON FOR REFERRAL No Information MEDICATIONS Medication SIG (Take, Route, Frequency, Duration) Notes Start Date End Date Status Tamsulosin HCl 0.4 MG 1 capsule 30 minut es after the same meal each day Orally Once a day Active Simvastatin 80 MG 1 tablet in the even ing Orally Once a day Active Aspirin 81 MG 1 tablet Orally Once a day Active Finasteride 5 MG Oral for 90 A ctive Metoprolol Succinate ER 100 MG Oral for 90 Active Centrum Silver 50+Men - 1 Orally QD Active Probiotic 250 MG 1 capsule Orally onc e a day Active Pantoprazole Sodium 40 MG TAKE 1 TABLET BY MOUTH EVERY DAY for 90 days Active Metoprolol Tartrate 100 MG 1 1/2 tablet with food Orally Twice a day Active IMMUNIZATIONS Vaccine Route Administration Date Status Comme nts Flu vaccine no Preserv 3 and > Unknown 04/11/2017 Admin istered Influenza Unknown 06/07/2019 Administered Influenza Unknown 06/28/2022 Administered Influenza Unknown 06/20/2023 Administered SOCIAL HISTORY Tobacco Use: Social History Observation Description Date Details (start date - stop date) Former Smoker NA - NA Sex Assigned At : Social History Observation Description Sex Assigned At Unknown Tobacco Use/Smoking Question Answer Notes Patient is a former smoker When did you stop smoking? 35 years ago Alcohol Screen Question Answer Notes Did you have a drink contain ing alcohol in the past year? Yes How often did you have a dri nk containing alcohol in the past year? Monthly or less (1 point) How many drinks did you have on a typical day when you were drinking in the past year? 1 or 2 drinks (0 point) How often did you have 6 or more drinks on one occasion in the past year? Never (0 point) Points 1 Interpretation Negative PROBLEMS Problem Type ICD Code Onset Dates Problem Status W/U Status Risk SNOMED Code Notes Problem Colon cancer screening (Z12.11) Active confirmed 255354026 Problem Gastroesophageal reflux disease without esophagitis (K21.9) Active confirmed 456163494 Problem Hypertension, unspecified type (I10) Active confirmed 10355596 VITAL SIGNS Temperature 98.0 degrees Fahrenheit 01/17/2024 Blood pressure diastolic 00 mm Hg 01/17/2024 Height 70 in 01/17/2024 Blood pressure systolic 000 mm Hg 01/17/2024 Weight 240 lbs 01/17/2024 BMI 34.43 kg/m2 01/17/2024 Encounters Encounter Location Date Provider Diagnosis [facility] [address] [place] [address] 01/17/2024 Alan Kenney Jr Gastroesophageal reflux disease without esophagitis K21.9 and Colon cancer screening Z12.11 ASSESSMENTS Encounter Date Diagnosis Assessment Notes Treatment Notes Treatment Clinical Notes 01/17/2024 Colon cancer screeni ng (ICD-10 - Z12.11) 01/17/2024 Gastroesophageal ref lux disease without esophagitis (ICD-10 - K21.9) PLAN OF TREATMENT Next Appt Details Provider Name:Alan castanon Jr, 01/20/2025 09:20:00 AM, [address] [place] [address], [address], [place], [address], Insurance Providers Payer Name Payer Address Payer Phone Subscriber Number Group Number Insured Name Patient Relationship to Insured Coverage Start Date Coverage End Date MEDICARE OF [place] [address] [place] [address] [phone] [id number] LUCILA ALIREZA Self - patient is the insured [employer] CLAIMS [address] [place] [phone] [id number] LUCILA ALIREZA Self - patient is the insured MEDICAL (GENERAL) HISTORY Medical History History ICD Code Hyperlipidemia hypertension BPH Gastroesophageal reflux dise ase, EGD 08/18, and no H. pylori or Gaytan's esophagus Coronary artery disease, NE 06/14 Chronic kidney disease stage III Colonoscopy 08/18, cecal tubular adenoma, followup optional based on age Surgical History Surgery Date(Month/Year) hemorrhoidectomy CABG x3 2007 cholecystectomy cystoscopy 12/2013
--- OUTSIDE RECORDS SUMMARY | 2024-07-18 07:00 | XMS_ITS ---
Author Organization [facility] Address [address] [place] [phone] Care Team Providers Care Heading Maker Name Role Phone Yfn Tran Primary Care Provider UnavailAlan Friedman Jr Unavailable ALLERGIES Allergen (clinical drug ingredient) Drug/Non Drug Allergy documented on EMR Reaction Allergy Type Onset Date Status naproxen Naprosyn Unknown Drug Allergy Active nitrofurantoin Macrodantin Unknown Drug Allergy Active hydrochlorothiazide Hydrochlorothiazide Unknown Drug Aller gy Active irbesartan Avapro Unknown Drug Allergy Active naproxen Aleve Unknown Drug Allergy Active lisinopril Zestril Unknown Drug Allergy Active amlodipine Norvasc Unknown Drug Allergy Active REASON FOR VISIT Patient presents today for gerd MEDICATIONS Medication SIG (Take, Route, Frequency, Duration) [...] 5 MG Oral for 90 A ctive Pantoprazole Sodium 40 MG TAKE 1 TABLET BY MOUTH EVERY DAY for 90 days Active Metoprolol Succinate ER 100 MG Oral for 90 Active Centrum Silver 50+Men - 1 Orally QD Active Probiotic 250 MG 1 capsule Orally onc e a day Active Metoprolol Tartrate 100 MG 1 1/2 tablet with food Orally Twice a day Active SOCIAL HISTORY Tobacco Use: Social History Observation [...] Never (0 point) Points 1 Interpretation Negative VITAL SIGNS BMI 34.43 kg/m2 01/17/2024 Blood pressure systolic 000 mm Hg 01/17/20 24 Blood pressure diastolic 00 mm Hg 024 Height 70 in 01/17/2024 Temperature 98.0 degrees Fahrenheit 01/17/20 24 Weight 240 lbs 01/17/2024 Encounters Encounter Location Date Provider Diagnosis [facility] [address] [place] [address] 01/17/2024 Alan Kenney Jr Gastroesophageal reflux disease without esophagitis K21.9 and Colon cancer screening Z12.11 ASSESSMENTS Encounter Date Diagnosis Assessment Notes Treatment Notes Treatment Clinical Notes 01/17/2024 Gastroesophageal ref lux disease without esophagitis (ICD-10 - K21.9) 01/17/2024 Colon cancer screeni ng (ICD-10 - Z12.11) PLAN OF TREATMENT Medication Medication Name Sig Start Date Stop Date Notes Pantoprazole Sodium 40 MG TAKE 1 TABLET BY MOUTH EVERY DAY for 90 days Next Appt Details Follow Up: 1 Year, Reason: Provider Name:Alan castanon Jr, 01/20/2025 09:20:00 AM, [address], [address], [place], [address],
--- OUTSIDE RECORDS SUMMARY | 2024-07-18 07:00 | XMS_ITS ---
Author Organization [facility] Address [address] [place] [id number] Care Team Providers Care Statistical Secretary Name Role Phone Yfn Tran Primary Care Provider Alan Manzano Jr Unavailable ALLERGIES Allergen (clinical drug ingredient) [...] REASON FOR VISIT Patient presents today for an OFFICE RECALL VISIT/HX OF GERD MEDICATIONS Medication SIG (Take, Route, Frequency, Duration) Notes Start Date End Date Status Aspirin 81 MG 1 tablet Orally Once a day Active Simvastatin 80 MG 1 tablet in the even ing Orally Once a day Active Tamsulosin HCl 0.4 MG 1 capsule 30 minut es after the same meal each day Orally Once a day Active Metoprolol Tartrate 100 MG 1 1/2 tablet with food Orally Twice a day Active Probiotic 250 MG 1 capsule Orally onc e a day Active Centrum Silver 50+Men - 1 Orally QD Active Pantoprazole Sodium 40 MG TAKE 1 TABLET BY MOUTH EVERY DAY for 90 days Active SOCIAL HISTORY Tobacco Use: Social History [...] Points 1 Interpretation Negative VITAL SIGNS BMI 40.31 kg/m2 01/16/2023 Blood pressure systolic 000 mm Hg 01/17/20 23 Blood pressure diastolic 00 mm Hg 023 Height 70 in 01/16/2023 Temperature 97.9 degrees Fahrenheit 01/17/20 23 Weight 281 lbs 01/16/2023 Encounters Encounter Location Date Provider Diagnosis [facility] [address] [place] [address] 01/16/2023 Alan Kenney Jr Gastroesophageal reflux disease without esophagitis K21.9 and Colon cancer screening Z12.11 ASSESSMENTS Encounter Date Diagnosis Assessment Notes Treatment Notes Treatment Clinical Notes 01/16/2023 Gastroesophageal ref lux disease without esophagitis (ICD-10 - K21.9) Endoscopy material was printed 01/16/2023 Colon cancer screeni ng (ICD-10 - Z12.11) PLAN OF TREATMENT Treatment Notes Assessment Notes Gastroesophageal reflux disease without esophagitis Endoscopy material was printed Next Appt Details Follow Up: 1 Year, Reason: Provider Name:Alan castanon , 01/20/2025 09:20:00 AM, [address] [facility], [address], [place], [address], Progress Notes * Examination Category Sub-Category Detail Notes General Examination GENERAL APPEARANCE: in no ac yanick distress HEAD: normocephalic EYES: sclera non-icteric NECK/THYROID: no lymphadenopathy HEART: S1, S2 normal, no mu rmurs CHEST: normal shape and exp ansion LUNGS: clear to auscultatio n bilaterally ABDOMEN: soft, nontender, non distended, bowel sounds present, no organomegaly SKIN: anicteric EXTREMITIES: no clubbing, cyanosi s, or edema PSYCH: cognitive function i ntact ORAL CAVITY: mucosa moist
[2024-07-18 07:07] VITALS: BP 200/87; PULSE 69; RESP 16; TEMP 36.2; O2SAT 96; BMI 33.0
[2024-07-18 07:35] LABS: MANUAL DIFF FLAG NO
[2024-07-18 07:40] LABS: Prothrombin Time 12.1 SEC (10.9-12.4)
[2024-07-18 07:41] LABS: Basophils Percent Auto 0.7 % (0-2); Eosinophils Absolute Auto 0.2 X10*3/uL (0.0-0.4); Hematocrit 41.6 % (42.0-52.0); Hemoglobin 14.4 g/dl (14.0-18.0); Imm Gran Abs Auto 0.02 X10*3/uL (0.00-0.03); Imm Gran Pct Auto 0.3 % (0.0-0.4); Lymphocytes Absolute Auto 1.5 X10*3/uL (1.2-4.9); Lymphocytes Percent Auto 24.9 % (20-40); Mean Corpuscular HGB Conc 34.6 g/dl (31.0-36.0); Mean Corpuscular Hemoglobin 31.3 pg (27.0-33.0); Mean Corpuscular Volume 90.4 fL (80.0-98.0); Mean Platelet Volume 9.5 fL (9.4-12.4); Monocytes Absolute Auto 0.4 X10*3/uL (0.1-1.2); Monocytes Percent Auto 7.3 % (2-11); Neutrophils Absolute Auto 3.8 x10*3/uL (2.0-8.3); Neutrophils Percent Auto 63.8 % (45-73); Platelet Count 143 X10*3/uL (160-400); Red Cell Distribution Width 13.7 % (11.0-16.0)
[2024-07-18 07:55] LABS: Alanine Aminotransferase 21 U/L (0-40); Albumin Level 4.1 g/dL (3.5-5.0); Alkaline Phosphatase 230 U/L (39-117); Anion Gap 11 (12-20); Aspartate Amino Transferase 33 U/L (5-37); Bilirubin Total 2.3 mg/dL (0.0-1.0); Blood Urea Nitrogen 18 mg/dL (9-16); Calcium 9.9 mg/dL (8.4-10.2); Carbon Dioxide 27 mmol/L (22-29); Chloride 108 mmol/L (96-108); Creatinine Clr Calc Pharmacy 64.5; Estimated Glomerular Filt Rate > 60; Glucose Random 108 mg/dL (60-115); Potassium 4.4 mmol/L (3.3-5.1); Sodium 142 mmol/L (135-145); Total Protein 6.6 g/dL (6.5-8.0)
--- NOTE | 2024-07-18 07:55 | ED.GENADULT ---
HPI - General Adult General Chief complaint: Extremity Injury, Lower Stated complaint: r leg pain Time Seen by Provider: 07/18/24 07:53 Source: patient and family Mode of arrival: ambulatory Limitations: no limitations History of Present Illness ED Provider: nilda MEDELLIN narrative: Patient is an 84-year-old male with history of hypertension, CAD, BPH, high cholesterol presenting to the emergency department with complaint of right posterior knee pain which radiates up his thigh and down his lower legs for the past 5 days, states pain has worsened over the past 2 days. Having difficulty ambulating due to pain. Denies any recent fall or other trauma. Denies history of blood clots. Denies any chest pain, palpitations, dyspnea. Denies recent travel or surgical procedures. Reports history of hypertension and states that he took his blood pressure medication this morning but has ?white coat syndrome. ? states that he does have losartan at home which he takes as needed if his blood pressure remains elevated after taking his metoprolol. Denies headache, vision changes, or abdominal pain. MD complaint: Right leg pain Onset (ago): day(s) Relieving factors: rest Exacerbating factors: movement Related Data Home Medications ?Medication ?Instructions ?Recorded ?Confirmed pantoprazole 40 mg tablet,delayed 40 mg PO DAILY 05/18/20 02/05/24 release simvastatin 80 mg tablet 80 mg PO BEDTIME 05/18/20 02/05/24 aspirin 81 mg tablet 81 mg PO DAILY 07/21/20 02/05/24 cranberry 405 mg capsule 405 mg PO DAILY 07/04/23 02/05/24 finasteride 5 mg tablet 5 mg PO DAILY 07/04/23 02/05/24 Previous Rx's ?Medication ?Instructions ?Recorded tamsulosin 0.4 mg capsule 0.8 mg (2 x 0.4 mg) PO DAILY #180 03/22/22 caps metoprolol succinate 100 mg 150 mg (1.5 x 100 mg) PO BID 90 06/02/23 tablet,extended release 24 hr days #270 tabs losartan 25 mg tablet 25 mg PO DAILY PRN SBP > 140 mmHg 05/20/24 30 days #30 tabs diclofenac sodium 1 % topical gel 2 g topical QID #100 grams 07/18/24 Allergies Allergy/AdvReac Type Severity Reaction Status Date / Time morphine [MORPHINE] Allergy Severe CONFUSION Verified 07/18/24 07:11 oxycodone [OXYCODONE] Allergy Severe CONFUSION Verified 07/18/24 07:11 hydrochlorothiazide Allergy Mild MUSCLE Verified 07/18/24 07:11 [Hydrochlorothiazide] CRAMPS, leg cramps lisinopril [From Zestril] Allergy Mild COUGH Verified 07/18/24 07:11 amlodipine [From Norvasc] AdvReac Mild DIZZINESS Verified 07/18/24 07:11 irbesartan [From Avapro] AdvReac Mild DIZZINESS Verified 07/18/24 07:11 Review of Systems Review of Systems: As per HPI Yes all other systems are reviewed and are negative Constitutional: Constitutional: Reports as per HPI [facility] Past Medical History Medical History UTI (urinary tract infection) High cholesterol CAD (coronary artery disease) BPH (benign prostatic hyperplasia) Surgical History S/P triple vessel bypass Social History Social History Household Members: Spouse Housing: House Do you presently have visiting nurse or other home services: No Alcohol intake: unknown Patient Tobacco Use Status: Never used Tobacco e-Cigarette/Vaping Use: Never Used Second Hand Smoke Exposure: No Advance Directives: No Advance Directives Information Provided: Yes service: No Current occupational status: retired (20 years) and disabled Current occupational exposures/hazards: No Cognitive needs: No Hearing needs: No Vision needs: Yes (Glasses) Physical Exam ED Vital Signs: Vital Signs - 24 hr 07/18/24 07:07 Temperature 97.1 F Pulse Rate 69 Respiratory Rate 16 Blood Pressure 200/87 H Pulse Oximetry 96 Oxygen Delivery Method Room Air BMI result Body Mass Index 33.0 Vital signs have been reviewed and appear to be correct. Blood pressure elevated. Heart rate normal. Respiratory rate normal. Temperature normal. Oxygen saturation normal. Const General: cooperative, healthy appearing and no acute distress Orientation/consciousness: oriented to person, oriented to place, oriented to time and patient oriented x3 Limitations: no limitations HENMT Head: Yes normocephalic and Yes atraumatic Ears: external ears normal General nose exam: Normal external nose present Face and sinus: Yes face symmetric Mouth: oropharynx normal and moist mucous membranes Throat: Yes uvula midline Eyes Pupils: Equal, round and reactive pupils present Neck Neck: Yes normal visual inspection and Yes supple Resp Effort & Inspection: normal respiratory effort and able to speak in complete sentences Auscultation: clear to auscultation bilaterally Cardio Rate: regular rate Rhythm: regular rhythm Heart sounds: S1 normal heart sound present and S2 normal heart sound present GI Palpation (GI): Soft to palpation and nontender Auscultation: normoactive bowel sounds General: Yes no CVA tenderness Back/Spine/Pelvis Back: no CVA tenderness Skin General skin exam: elasticity normal and turgor normal Neuro General: oriented to person, oriented to place, oriented to time, patient oriented x3, moves all extremities, no focal motor deficits and CN's II-XI intact bilaterally Cranial nerves: Yes Equal, round and reactive pupils present Cognition (Neuro): normal cognition Extrem General: Yes full ROM and Yes no pedal edema Right lower extremity: knee Details: tenderness Location: of the popliteal fossa, swelling Location: of the popliteal fossa, normal ROM and knee ligament exam normal, lower leg Details: localized swelling (mild swelling proximal lower leg) Location: of the proximal lower leg; no pitting edema and foot Details: vascular exam Details: dorsalis pedis pulse present, posterior tibial pulse present and normal capillary refill Psych Mental Status: mental status grossly normal Affect: normal affect Thought process: Normal thought process present Medical Decision Making Medical Decision Making MDM Narrative: Patient is an 84-year-old male with history of hypertension, CAD, BPH, high cholesterol presenting to the emergency department with complaint of right posterior knee pain which radiates up his thigh and down his lower legs for the past 5 days, states pain has worsened over the past 2 days. On exam patient is awake, A+Ox3, BP elevated, VS otherwise WNL, afebrile, normal neurological exam without focal deficits, physical exam findings as above. Given reported symptoms and physical exam findings, initial differential includes DVT, Jay's cyst, muscle strain/sprain. Unlikely PE as patient denies chest pain or dyspnea. Labs grossly within normal limits. Ultrasound notable for Jay's cyst, no evidence of DVT. My interpretation is in agreement with the radiologist's interpretation. Patient and updated on results and all questions answered. Patient provided with Amol wrap in the emergency department today, advised to keep leg elevated, Tylenol and ibuprofen as needed for discomfort. Patient requesting additional pain medication, however, has confusion reaction to morphine and oxycodone and is also at increased risk for falls. Will send prescription for diclofenac gel. Will refer to ortho for follow-up. BP elevated at visit, however, patient denies headache, vision changes, chest pain, and has additional BP medication he can take at home. Return precautions discussed at bedside. Patient and verbalized understanding of and agreement with plan. Differential Diagnosis Differential Diagnoses: The differential diagnosis associated with the presentation includes As per [facility]. Admission/Observation Consideration of admission/observation: Escalation of care including admission/observation considered Patient would have been admitted to the hospital had their work up had any findings where hospital admission was appropriate and their clinical presentation warranted hospital admission. Lab Data [facility] Lab Attestation statement: I reviewed the patient's lab results. As per [facility] 07/18/24 07:30 07/18/24 07:30 Labs: Lab Results 07/18/24 Range/Units 07:30 WBC 6.0 (4.8-10.8) X10*3/uL RBC 4.60 (4.60-5.80) X10*6/uL Hgb 14.4 (14.0-18.0) g/dl Hct 41.6 L (42.0-52.0) % MCV 90.4 (80.0-98.0) fL MCH 31.3 (27.0-33.0) pg MCHC 34.6 (31.0-36.0) g/dl RDW 13.7 (11.0-16.0) % Plt Count 143 L (160-400) X10*3/uL MPV 9.5 (9.4-12.4) fL Immature Gran % (Auto) 0.3 (0.0-0.4) % Neut % (Auto) 63.8 (45-73) % Lymph % (Auto) 24.9 (20-40) % Tillman % (Auto) 7.3 (2-11) % Eos % (Auto) 3.0 (0-4) % Baso % (Auto) 0.7 (0-2) % Lymph # (Auto) 1.5 (1.2-4.9) X10*3/uL Tillman # (Auto) 0.4 (0.1-1.2) X10*3/uL Eos # (Auto) 0.2 (0.0-0.4) X10*3/uL Baso # (Auto) 0.0 (0.0-0.2) X10*3/uL Abs Immat Gran (auto) 0.02 (0.00-0.03) X10*3/uL Absolute Neuts (auto) 3.8 (2.0-8.3) x10*3/uL Absolute Nucleated RBC 0.000 (0.0-0.012) X10*3/uL Nucleated RBC % (auto) 0.0 (0.0-0.2) /100WBC PT 12.1 (10.9-12.4) SEC INR 1.0 (0.9-1.1) Sodium 142 (135-145) mmol/L Potassium 4.4 (3.3-5.1) mmol/L Chloride 108 (96-108) mmol/L Carbon Dioxide 27 (22-29) mmol/L Anion Gap 11 L (12-20) BUN 18 H (9-16) mg/dL Creatinine 1.03 (0.5-1.4) mg/dL Estim Creat Clear Calc 64.5 Estimated GFR > 60 Random Glucose 108 (60-115) mg/dL Calcium 9.9 (8.4-10.2) mg/dL Total Bilirubin 2.3 H (0.0-1.0) mg/dL AST 33 (5-37) U/L ALT 21 (0-40) U/L Alkaline Phosphatase 230 H (39-117) U/L Total Protein 6.6 (6.5-8.0) g/dL Albumin 4.1 (3.5-5.0) g/dL Independent Interpretation I performed an independent interpretation of an: Ultrasound Interpretation: No evidence of DVT, +Bakers cyst. Radiology Impression Discussion of test interpretation with radiology: I have reviewed the radiologist's reading. Radiologist Impression: IMPRESSION: No evidence of deep venous thrombosis involving the right lower extremity. 3.1cm Jay's cyst. External Record Review External record reviewed: Inpatient record, Office record and Outpatient record Prescription Management I considered prescription management with: Pain Medication Discharge Plan Discharge Clinical Impression: Jay's cyst of knee Qualifiers: Laterality: right Qualified Code(s): M71.21 - Synovial cyst of popliteal space [Jay], right knee Patient Disposition: Home, Self-Care Instructions: Bakers Cyst (ED) Additional Instructions: You were evaluated in the emergency department today for knee pain. Your ultrasound did not show evidence of a DVT, also known as a blood clot, but did show a Jay's cyst. We provided you with Amol wrap in the emergency department today, we also recommend you keep your leg elevated while at rest. You can use Tylenol or ibuprofen per package directions as needed for discomfort. You are being prescribed diclofenac gel which you can apply topically to the affected area. Follow up with orthopedics for ongoing symptoms. Return to the emergency department if you develop change of color in your leg, fever, weakness, numbness, tingling or any other concerning symptoms. Prescriptions: New diclofenac sodium 1 % gel 2 g topical QID Qty: 100 0RF Rx Instructions: apply to single elbow, wrist or hand; for hand includes palm/fingers/back of hand No Action tamsulosin 0.4 mg capsule 0.8 mg PO DAILY Qty: 180 1RF metoprolol succinate 100 mg tablet extended release 24 hr 150 mg PO BID 90 Days Qty: 270 4RF aspirin 81 mg Tablet 81 mg PO DAILY pantoprazole 40 mg tablet,delayed release (DR/EC) 40 mg PO DAILY simvastatin 80 mg tablet 80 mg PO BEDTIME finasteride 5 mg tablet 5 mg PO DAILY cranberry 405 mg capsule 405 mg PO DAILY Rx Instructions: administer with a meal losartan 25 mg tablet 25 mg PO DAILY PRN (Reason: SBP > 140 mmHg) 30 Days Qty: 30 3RF Referrals: [facility] Orthopedic Surgeons [Provider Group] Print Language: Sinhala
--- NOTE | 2024-07-18 08:28 | PC.NURSE ---
Patient evaluated by GRACIA Gracia. Patient c/o right posterior thigh pain that radiates to right ocampo since Monday. Constant burning pain that slightly gets better with repositioning . Slight swelling noted to right inner knee area. Skin p/w/d.
--- NOTE | 2024-07-18 10:49 | PC.NURSE ---
paolo wrap applied to R knee, pt able to stand and take a few steps with cane. remains hypertensive, provider aware, pt has known hx of HTN and white coat syndrome w PRN medications available at home if bp remains high.
[2024-07-18 10:50] VITALS: BP 217/93; PULSE 63; RESP 16; TEMP 36.6; O2SAT 98
== END 2024-07-18 10:50 | disposition home or self-care (01) ==
PROVIDERS: Emergency Provider Student in an Organized Health Care Education/Training Program; PCP Family Medicine
DX: M71.21 Synovial cyst of popliteal space [Baker], right knee (principal); M79.604 Pain in right leg
CPT/HCPCS: 36415; 80053; 85025; 85610; 93971; 99282; 99284

== ENCOUNTER 2024-07-29 10:38 | Outpatient (AMB) | payer MEDICARE, SELFPAY ==
--- OUTSIDE RECORDS SUMMARY | 2024-07-29 10:40 | XMS_ITS ---
Author Organization [facility] Address [address] [place] [address] Care Team Providers Care Lump Inspector Name Role Phone Yfn Tran Primary Care [...] 01/17/2024 Encounters Encounter Location Date Provider Diagnosis [facility] [address] [place] [address] 01/17/2024 Alan Kenney Jr Gastroesophageal reflux disease [...] Name:Alan castanon Jr, 01/20/2025 09:20:00 AM, [address], [address], [place], [address],
--- OUTSIDE RECORDS SUMMARY | 2024-07-29 10:40 | XMS_ITS | Patient Health Record ---
Author Organization [facility] Address [address] [place] [address] Care Team Providers Care Independent Video Producer Name Role Phone Yfn Tran Primary Care [...] Problem Colon cancer screening (Z12.11) Active confirmed 717677338 Problem Gastroesophageal reflux disease without esophagitis (K21.9) Active confirmed [id number] Problem Hypertension, unspecified type (I10) Active confirmed [id number] VITAL SIGNS Temperature 98.0 degrees Fahrenheit 01/17/2024 Blood pressure diastolic 00 mm Hg 01/17/2024 Height 70 in 01/17/2024 Blood pressure systolic 000 mm Hg 01/17/2024 Weight 240 lbs 01/17/2024 BMI 34.43 kg/m2 01/17/2024 Encounters Encounter Location Date Provider Diagnosis [facility] [address] [place] [address] 01/17/2024 Alan Kenney Jr Gastroesophageal reflux disease without esophagitis K21.9 and Colon cancer screening Z12.11 ASSESSMENTS Encounter Date Diagnosis Assessment Notes Treatment Notes Treatment Clinical Notes 01/17/2024 Colon cancer screeni ng (ICD-10 - Z12.11) 01/17/2024 Gastroesophageal ref lux disease without esophagitis (ICD-10 - K21.9) PLAN OF TREATMENT Next Appt Details Provider Name:Alan castanon Jr, 01/20/2025 09:20:00 AM, [address] [place] [address], [address], [place], [address], Insurance Providers Payer Name Payer Address Payer Phone Subscriber Number Group Number Insured Name Patient Relationship to Insured Coverage Start Date Coverage End Date MEDICARE OF [place] [address] [place] [address] [id number] LUCILA ALIREZA Self - patient is the insured [employer] ATT[employer] CLAIMS [address] [place] [address] [phone] [id number] LUCILA ALIREZA Self - patient is the insured MEDICAL (GENERAL) HISTORY Medical History History ICD Code Hyperlipidemia hypertension BPH Gastroesophageal reflux dise ase, EGD 08/18, and no H. pylori or Gaytan's esophagus Coronary artery disease, [place] 06/14 Chronic kidney disease stage III Colonoscopy 08/18, cecal tubular adenoma, followup optional based on age Surgical History Surgery Date(Month/Year) hemorrhoidectomy CABG x3 2007 cholecystectomy cystoscopy 12/2013
--- NOTE | 2024-07-29 10:44 | A.OFFVIS_ITS ---
Vital Signs 07/29/24 10:44 Height 5 ft 10 in Weight 20 lb BMI 2.9 Intake Visit Reasons: Right knee pain Intake Note: Mohamud is an 84 year old male who presents with complaints of progressively worsening right knee pain. He describes his pain as sharp in nature. His pain has gotten worse over the last few months in spite of continued non operative treatments. He has tried Tylenol, Motrin and topical Voltaren gel which gave him only mild relief. He does walk with a cane because of his pain. He denies any locking or giving way. Accompanied by: Spouse Allergies morphine [MORPHINE] Allergy (Severe, Verified 07/29/24 10:57) CONFUSION oxycodone [OXYCODONE] Allergy (Severe, Verified 07/29/24 10:57) CONFUSION hydrochlorothiazide [Hydrochlorothiazide] Allergy (Mild, Verified 07/29/24 10:57) MUSCLE CRAMPS, leg cramps lisinopril [From Zestril] Allergy (Mild, Verified 07/29/24 10:57) COUGH amlodipine [From Norvasc] Adverse Reaction (Mild, Verified 07/29/24 10:57) DIZZINESS irbesartan [From Avapro] Adverse Reaction (Mild, Verified 07/29/24 10:57) DIZZINESS Medication List - Last Reconciled 07/29/24 by Raad Mills MD aspirin 81 mg PO DAILY cranberry 405 mg PO DAILY diclofenac sodium 1% 2 grams topical QID finasteride 5 mg PO DAILY losartan 25 mg PO DAILY PRN 30 days metoprolol succinate ER 150 mg (1.5 x 100 mg) PO BID 90 days pantoprazole 40 mg PO DAILY simvastatin 80 mg PO BEDTIME tamsulosin 0.8 mg (2 x 0.4 mg) PO DAILY [facility] Medical History UTI (urinary tract infection) High cholesterol CAD (coronary artery disease) BPH (benign prostatic hyperplasia) Surgical History S/P triple vessel bypass Social History Household Members: Spouse Housing: House Do you presently have visiting nurse or other home services: No Alcohol intake: unknown Patient Tobacco Use Status: Never used Tobacco e-Cigarette/Vaping Use: Never Used Second Hand Smoke Exposure: No service: No Current occupational status: retired (20 years) and disabled Current occupational exposures/hazards: No Cognitive needs: No Hearing needs: No Vision needs: Yes (Glasses) Physical Exam Vital Signs: BMI result Body Mass Index 2.9 Const Other: Well-nourished well-developed very friendly male awake alert and oriented x3 in no acute distress Extrem Other: Bilateral lower extremity examination shows good capillary refill, no skin lesions noted, normal sensation light touch Right knee examination shows a minimal effusion, palpable crepitus with range of motion, pain with range of motion, range of motion from -3 degrees to 115 degrees, no instability Office Procedures AMB Joint Injection/Aspiration Joint Injection/Aspiration Primary Site: right knee Prep: site was prepped using aseptic technique Injected: 40 mg of, DepoMedrol and 1% plain lidocaine Procedure: The patient tolerated the procedure well Coding - Large joint Procedure code (CPT) selection complete Results Reviewed Results Reviewed: X-rays of the patient's right knee show moderate diffuse joint space narrowing most significant in the patellofemoral joint, subchondral sclerosis, no acute bony abnormalities Assessment & Plan Assessment & Plan (1) Arthritis of right knee: Code(s): M17.11 - Unilateral primary osteoarthritis, right knee Category: Medical (2) Right knee pain: Code(s): M25.561 - Pain in right knee Plan Mr. Blakely presents with right knee pain due to degenerative joint disease. I had a lengthy discussion with the patient regarding the treatment options. The risks and benefits of a right knee cortisone injection were discussed at length with the patient. The patient wished to proceed. He tolerated the injection well. He will continue with his activity modifications. He will contact me prior to his follow-up appointment in 3 months should any questions or concerns arise. Feel free to call me at any time should questions regarding his orthopedic management arise. I spent 20 minutes in reviewing the patient's records and imaging studies, seeing the patient and documenting in the medical record. Orders: Orders AMB Joint Injection/Aspiration Today M17.11 - Unilateral primary osteoarthritis, right knee Coding Level of Care Code New Pt Level 3 (71650) Complex EM visit Add On G2211 Diagnoses Arthritis of right knee M17.11 Right knee pain M25.561 CPT Codes Coding - Large joint: 36088 - Large joint ([id number])
== END 2024-07-29 11:36 | disposition home or self-care (01) ==
PROVIDERS: PCP Family Medicine; Visit Provider Orthopaedic Surgery
DX: M17.11 Unilateral primary osteoarthritis, right knee (principal); M25.561 Pain in right knee
CPT/HCPCS: 20610; 99203

== ENCOUNTER 2024-07-29 15:34 | Outpatient (REF) | payer MEDICARE, SELFPAY ==
--- OUTSIDE RECORDS SUMMARY | 2024-08-01 15:38 | XMS_ITS ---
Author Organization [facility] Address [address] [place] [address] Care Team Providers Care Muleser Name Role Phone Yfn Tran Primary Care Provider Alan Manzano Jr Unavailable ALLERGIES Allergen (clinical drug ingredient) Drug/Non Drug Allergy documented on EMR Reaction Allergy Type Onset Date Status naproxen Naprosyn Unknown Drug Allergy Active nitrofurantoin Macrodantin Unknown Drug Allergy Active hydrochlorothiazide Hydrochlorothiazide Unknown Drug Aller gy Active irbesartan Avapro Unknown Drug Allergy Active Aleve Unknown Drug Allergy Active lisinopril Zestril [...] 01/17/2024 Encounters Encounter Location Date Provider Diagnosis [facility] [address] [place] [address] 01/17/2024 Alan Kenney Jr Gastroesophageal reflux disease [...] Name:Alan castanon Jr, 01/20/2025 09:20:00 AM, [address], [address], [place], [address],
--- OUTSIDE RECORDS SUMMARY | 2024-08-01 15:38 | XMS_ITS | Patient Health Record ---
Author Organization [facility] Address [address] [place] [address] Care Team Providers Care Broadcast Operations Manager Name Role Phone Yfn Tran Primary Care [...] Problem Colon cancer screening (Z12.11) Active confirmed [id number] Problem Gastroesophageal reflux disease without esophagitis (K21.9) Active confirmed 220564120 Problem Hypertension, unspecified type (I10) Active confirmed 02265915 VITAL SIGNS Temperature 98.0 degrees Fahrenheit 01/17/2024 Blood pressure diastolic 00 mm Hg 01/17/2024 Height 70 in 01/17/2024 Blood pressure systolic 000 mm Hg 01/17/2024 Weight 240 lbs 01/17/2024 BMI 34.43 kg/m2 01/17/2024 Encounters Encounter Location Date Provider Diagnosis [facility] [address] [place] [address] 01/17/2024 Alan Kenney Jr Gastroesophageal reflux disease without esophagitis K21.9 and Colon cancer screening Z12.11 ASSESSMENTS Encounter Date Diagnosis Assessment Notes Treatment Notes Treatment Clinical Notes 01/17/2024 Colon cancer screeni ng (ICD-10 - Z12.11) 01/17/2024 Gastroesophageal ref lux disease without esophagitis (ICD-10 - K21.9) PLAN OF TREATMENT Next Appt Details Provider Name:Alan castanon Jr, 01/20/2025 09:20:00 AM, [address], [address], [place], [address], Insurance Providers Payer Name Payer Address Payer Phone Subscriber Number Group Number Insured Name Patient Relationship to Insured Coverage Start Date Coverage End Date MEDICARE OF [place] [address] [place] [address] [phone] [id number] GAYTAN ALIREZA Self - patient is the insured [employer] ATT[employer] CLAIMS [address] [place] [address] [phone] [id number] GAYTAN ALIREZA Self - patient is the insured MEDICAL (GENERAL) HISTORY Medical History History ICD Code Hyperlipidemia hypertension BPH Gastroesophageal reflux dise ase, EGD 08/18, and no H. pylori or Gaytan's esophagus Coronary artery disease, [place] 06/14 Chronic kidney disease stage III Colonoscopy 08/18, cecal tubular adenoma, followup optional based on age Surgical History Surgery Date(Month/Year) hemorrhoidectomy CABG x3 2007 cholecystectomy cystoscopy 12/2013
== END 2024-07-29 15:35 | disposition home or self-care (01) ==
LOC: HO.HOSX 15:34
PROVIDERS: Visit Provider Orthopaedic Surgery
DX: M17.11 Unilateral primary osteoarthritis, right knee (principal); M25.561 Pain in right knee
CPT/HCPCS: 20610; 73562; 99202; J1010; J2003

== ENCOUNTER 2024-08-20 08:29 | Outpatient (AMB) | payer MEDICARE, SELFPAY ==
--- NOTE | 2024-08-20 08:44 | MHC.PC.OV ---
Vital Signs 08/20/24 08:45 08/20/24 09:14 Height 5 ft 10 in Weight 231 lb 8 oz BMI 33.2 BP 180/82 H 158/80 H Blood Pressure Location Lt brachial Lt brachial Position Sitting Sitting Respiration 16 Pulse 63 Pulse Source Pulse Oximeter Temp 97.7 F Temp Source Oral Pulse Oximetry (%) 98 Oxygen Delivery Method Room Air Intake Visit Reasons: f/u hypertension, chronic conditions Intake Note: F/U for HTN Allergies morphine [MORPHINE] Allergy (Severe, Verified 08/20/24 08:44) CONFUSION oxycodone [OXYCODONE] Allergy (Severe, Verified 08/20/24 08:44) CONFUSION hydrochlorothiazide [Hydrochlorothiazide] Allergy (Mild, Verified 08/20/24 08:44) MUSCLE CRAMPS, leg cramps lisinopril [From Zestril] Allergy (Mild, Verified 08/20/24 08:44) COUGH amlodipine [From Norvasc] Adverse Reaction (Mild, Verified 08/20/24 08:44) DIZZINESS irbesartan [From Avapro] Adverse Reaction (Mild, Verified 08/20/24 08:44) DIZZINESS Medication List - Last Reconciled 08/20/24 by Yfn Tran MD aspirin 81 mg PO DAILY cranberry 405 mg PO DAILY diclofenac sodium 1% 2 grams topical QID finasteride 5 mg PO DAILY losartan 25 mg PO DAILY PRN 30 days metoprolol succinate ER 150 mg (1.5 x 100 mg) PO BID 90 days pantoprazole 40 mg PO DAILY simvastatin 80 mg PO BEDTIME tamsulosin 0.8 mg (2 x 0.4 mg) PO DAILY Tobacco use date assessed: 02/05/24 Dental Screening Dental Screen Date: 11/17/23 HPI f/u hypertension, chronic conditions HPI Details Patient?presents?to?follow-up?hypertension. 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 Had?given?him?a?2nd?medication,?losartan?and?he?could?take?if?his?blood?pressures?are?consistently?above?is?goal?but?this?has?case. He?is?asymptomatic?for?any?symptoms?hypertension. Patient?feels?well.??No?complaints. He?does?note?that?his?orthopedic?surgeon,?Dr. Mills has?given?him?an?injection?in?his?right?knee?which?he?tolerated?well.??Helping?somewhat.? PFSH Medical History UTI (urinary tract infection) High cholesterol CAD (coronary artery disease) BPH (benign prostatic hyperplasia) Surgical History S/P triple vessel bypass Social History Household Members: Spouse Housing: House Do you presently have visiting nurse or other home services: No Alcohol intake: unknown Patient Tobacco Use Status: Never used Tobacco e-Cigarette/Vaping Use: Never Used Second Hand Smoke Exposure: No service: No Current occupational status: retired (20 years) and disabled Current occupational exposures/hazards: No Cognitive needs: No Hearing needs: No Vision needs: Yes (Glasses) Questionnaire PHQ-9 Over the last 2 weeks, how often have you been bothered by any of the following problems? 1. Little interest or pleasure in doing things: not at all 2. Feeling down, depressed, or hopeless: not at all 3. Trouble falling or staying asleep, or sleeping too much: not at all 4. Feeling tired or having little energy: not at all 5. Poor appetite or overeating: not at all 6. Feeling bad about yourself - or that you are a failure or have let yourself or your family down: not at all 7. Trouble concentrating on things, such as reading the newspaper or watching television: not at all 8. Moving or speaking so slowly that other people could have noticed. Or the opposite - being so fidgety or restless that you have been moving around a lot more than usual: not at all 9. Thoughts that you would be better off or of hurting yourself in some way: not at all Total score: 0 Source: Developed by Drs. Dewayne Eden, Drea Delgado, Pierce Cao and colleagues, with an educational pj from [employer]. Thrive Questionnaire Date Thrive assessed: 08/14/24 I am a: Patient What is your living situation today?: I have a steady place to live Within the past 12 months, did the food you bought not last and you didn't have the money to get more?: Never true Within the past 12 months, did you worry whether your food would run out before you got money to buy more?: Never true Do you have trouble paying for medicines?: No Do you have trouble getting transportation to medical appointments?: No Do you have trouble paying your heating and electricity bill?: No Do you have trouble taking care of your child, family member or friend?: No Do you have trouble with day-to-day activities such as bathing, preparing meals, shopping, managing finances, etc.?: No Are you currently unemployed and looking for a job?: No Are you interested in more education?: No Please select the resources that you would like help with: None Currently or been in a relationship where the following occur: No concerns reported THRIVE Score: 0 AUDIT C Alcohol Use Questionnaire (AUDIT-C) 1. How often do you have a drink containing alcohol?: Monthly or less 2. How many drinks containing alcohol do you have on a typical day when you are drinking?: 1 or 2 3. How often do you have six or more drinks on one occasion?: Never Total Score: 1 SHAYLEE-7 AMB Questionnaire SHAYLEE-7 Date SHAYLEE - 7 assessed: 11/17/23 Feeling nervous, anxious, or on edge: 0 = Not at all Not being able to stop or control worryin = Not at all Worrying too much about different things: 0 = Not at all Trouble relaxin = Not at all Being so restless that it is hard to sit still: 0 = Not at all Becoming easily annoyed or irritable: 0 = Not at all Feeling afraid as if something awful might happen: 0 = Not at all Total SHAYLEE-7 score (0-4 normal; 5-9 mild; 10-14 moderate; 15-21 severe): 0 Source: Developed by Drea Rodriguez Kurt Kroenke and colleagues, with an educational pj from [employer]. Review of Systems Const Denies chills, Denies fatigue, Denies fever(s), Denies headache(s) and Denies weakness ENT Denies dizziness and Denies headache(s) Card Denies chest pain, Denies lightheadedness, Denies dyspnea and Denies other (Palpitations) Resp Denies cough, Denies dyspnea, Denies wheezing and Denies other ( shortness of breath) Musc Details: Right?knee?pain, mild Denies numbness and Denies tingling Neuro Denies dizziness, Denies headache(s), Denies numbness, Denies tingling, Denies paresthesias and Denies weakness Psych Denies anxiety and Denies depression Endo Denies fatigue Aller/Immun Denies wheezing Physical exam (Primary Care) Vital Signs: Last Vital Signs Temp 97.7 F 08/20/24 08:45 Pulse 63 08/20/24 08:45 Resp 16 08/20/24 08:45 BP 180/82 H 08/20/24 08:45 Pulse Ox 98 08/20/24 08:45 Oxygen Delivery Method Room Air 08/20/24 08:45 BMI result Body Mass Index 33.2 Tobacco/Smoking Status: Tobacco use Status Tobacco use date assessed 02/05/24 08/20/24 08:49 Patient Tobacco Use Status Never used Tobacco 08/20/24 08:49 e-Cigarette/Vaping Use Never Used 08/20/24 08:49 PHQ-9: PHQ-9 Score PHQ-9: Total score 0 08/20/24 08:49 Thrive Assessment: Date of Thrive Assessment Date Thrive assessed 08/14/24 08/20/24 08:49 Currently or been in a relationship where the following occur: No concerns reported Const General: no acute distress and well developed Nutritional Appearance: well nourished Orientation/consciousness: patient oriented x3 HENMT Head: Yes normocephalic and Yes atraumatic Eyes General: appearance normal, both eyes and all related structures Pupils: Equal, round and reactive pupils present EOM: EOMs intact bilaterally Resp Effort & Inspection: normal respiratory effort Auscultation: clear to auscultation bilaterally Cardio Rate: regular rate Rhythm: regular rhythm Heart sounds: S1 normal heart sound present, S2 normal heart sound present, no gallops, no murmurs and no rubs Neuro General: patient oriented x3 and gait normal Cranial nerves: Yes Equal, round and reactive pupils present Extrem Other: No?effusion?at?right?knee Minimal?tenderness?and?joint?spaces Psych Affect: normal affect Coding Level of Care Code Est Pt Level 4 (53159) Diagnoses Essential hypertension I10 White coat syndrome with diagnosis of hypertension I10 CAD (coronary artery disease) I25.10 Arthritis of right knee M17.11 Assessment & Plan Assessment & Plan (1) Essential hypertension: Code(s): I10 - Essential (primary) hypertension Category: Medical Plan: Patient?with?known?white?coat?syndrome. Blood?pressures?at?office?are?always?high.??Blood?pressures?at?home?are?consistently?less?than?130/80?with?a?few?slightly?above?this. Goal?is?less?than?130/80?due?to?coronary?artery?disease. He?takes?metoprolol?as?prescribed. 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 He?has?losartan?for?blood?pressures?consistently?higher?than?his?goal.??Has?not?needed?to?take?this. Continue?current?medication?regimen?and?continue?checking?blood?pressures?at?home (2) White coat syndrome with diagnosis of hypertension: Code(s): I10 - Essential (primary) hypertension Category: Medical Plan: As above (3) CAD (coronary artery disease): Code(s): I25.10 - Atherosclerotic heart disease of [place] coronary artery without angina pectoris Category: Medical Plan: Stable (4) Arthritis of right knee: Code(s): M17.11 - Unilateral primary osteoarthritis, right knee Category: Medical Plan: Right?knee?osteoarthritis?and?now?s/p?injection?with?moderate?improvement. Follow-up?with?ortho?has?recommended
[2024-08-20 08:45] VITALS: BP 180/82; PULSE 63; RESP 16; TEMP 36.5; O2SAT 98; BMI 33.2
--- OUTSIDE RECORDS SUMMARY | 2024-08-20 08:48 | XMS_ITS | Patient Health Record ---
Author Organization [facility] Address [address] [place] [id number] Care Team Providers Care Forder Operator Name Role Phone Yfn Tran Primary Care [...] Problem Colon cancer screening (Z12.11) Active confirmed 757209402 Problem Gastroesophageal reflux disease without esophagitis (K21.9) Active confirmed 039048013 Problem Hypertension, unspecified type (I10) Active confirmed [id number] VITAL SIGNS Temperature 98.0 degrees Fahrenheit 01/17/2024 Blood pressure diastolic 00 mm Hg 01/17/2024 Height 70 in 01/17/2024 Blood pressure systolic 000 mm Hg 01/17/2024 Weight 240 lbs 01/17/2024 BMI 34.43 kg/m2 01/17/2024 Encounters Encounter Location Date Provider Diagnosis [facility] [address] [place] [address] 01/17/2024 Alan Kenney Jr Gastroesophageal reflux disease without esophagitis K21.9 and Colon cancer screening Z12.11 ASSESSMENTS Encounter Date Diagnosis Assessment Notes Treatment Notes Treatment Clinical Notes 01/17/2024 Colon cancer screeni ng (ICD-10 - Z12.11) 01/17/2024 Gastroesophageal ref lux disease without esophagitis (ICD-10 - K21.9) PLAN OF TREATMENT Next Appt Details Provider Name:Alan castanon Jr, 01/20/2025 09:20:00 AM, [address], [address], [place], [address], Insurance Providers Payer Name Payer Address Payer Phone Subscriber Number Group Number Insured Name Patient Relationship to Insured Coverage Start Date Coverage End Date MEDICARE OF [place] [address] [place] AARON [address] [phone] [id number] GAYTAN ALIREZA Self - patient is the insured [employer] ATTN CLAIMS [address] [place] [phone] [id number] GAYTAN ALIREZA Self - patient is the [...]
--- OUTSIDE RECORDS SUMMARY | 2024-08-20 08:48 | XMS_ITS ---
Author Organization [facility] Address [address] [place] [id number] Care Team Providers Care Freelance Makeup Artist Name Role Phone Yfn Tran Primary Care [...] 01/17/2024 Encounters Encounter Location Date Provider Diagnosis [facility] [address] [place] [address] 01/17/2024 Alan Kenney Jr Gastroesophageal reflux disease [...] Name:Alan castanon Jr, 01/20/2025 09:20:00 AM, [address] [facility], [address], [place], [address],
[2024-08-20 09:14] VITALS: BP 158/80
== END 2024-08-20 09:16 | disposition home or self-care (01) ==
PROVIDERS: PCP Family Medicine; Visit Provider Family Medicine
DX: I10 Essential (primary) hypertension (principal); I25.10 Atherosclerotic heart disease of native coronary artery without angina pectoris; M17.11 Unilateral primary osteoarthritis, right knee

== ENCOUNTER → 2024-08-20 08:29 | Outpatient (BNVA) | payer MEDICARE, SELFPAY | PROVIDERS: PCP Family Medicine; Visit Provider Family Medicine | DX: I10 Essential (primary) hypertension (principal); I25.10 Atherosclerotic heart disease of native coronary artery without angina pectoris; M17.11 Unilateral primary osteoarthritis, right knee | CPT/HCPCS: 96127; 99212 ==

== ENCOUNTER 2024-09-01 12:14 | Emergency (ER) | payer MEDICARE, SELFPAY ==
--- NOTE | ~2024-09-01 | CT_ITS ---
CLINICAL HISTORY: Fall, head strike, right frontal hematoma CT head without contrast Comparison: None Findings: No intra-axial mass, midline shift, hydrocephalus, or acute hemorrhage. Involutional change of brain parenchyma, compatible with age. Mild white matter disease. The visualized paranasal sinuses and mastoid air cells are normal. The orbits are within normal limits. Right frontal scalp contusion. No skull fracture. IMPRESSION: No skull fracture or intracranial hemorrhage. This document has been electronically signed by: Ameena Silva MD on 09/01/2024 14:24:57
--- NOTE | ~2024-09-01 | XR_ITS ---
CLINICAL HISTORY: fall, pain 4 view right knee Comparison: DX - XR KNEE RT 3V - 07/29/24 10:40 EST Findings: No acute fracture. An intra-articular body is present without change. There are mild arthritic changes. No joint effusion. No radiopaque foreign body. Surgical clips within the medial soft tissues. Vascular calcifications are present. IMPRESSION: 1. No acute findings. This document has been electronically signed by: Ameena Silva MD on 09/01/2024 13:55:34
--- NOTE | ~2024-09-01 | CT_ITS ---
CLINICAL HISTORY: fall, hed injury CT cervical spine without contrast Comparison: None Findings: Abnormal bone density may be secondary to a metabolic abnormality such as renal osteodystrophy. Multiple areas of relative lysis have an appearance most compatible with a benign process. Malignancy is not excluded. 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 No significant alignment abnormality. There are mild degenerative changes. No acute fractures or dislocations. No acute findings on limited view of the intracranial contents. Soft tissues of the neck are normal. No consolidation or effusion at the lung apices. IMPRESSION: No acute cervical spine fracture. Additional findings as above. This document has been electronically signed by: Ameena Silva MD on 09/01/2024 14:30:47
[2024-09-01 12:29] VITALS: BP 170/100; PULSE 76; O2SAT 99
[2024-09-01 12:44] VITALS: BP 169/80; PULSE 68; RESP 20; TEMP 36.1; O2SAT 95; BMI 43.2
--- NOTE | 2024-09-01 12:55 | ED.FALL ---
HPI - Fall General Chief Complaint: Fall Stated Complaint: Fall outside [facility], right leg bruise Time Seen by Provider: 09/01/24 12:31 Source: patient and EMS Mode of arrival: EMS Limitations: no limitations History of Present Illness ED Provider: Suyapa Cox NP HPI Narrative: Patient is an 84-year-old male presents emergency department via EMS for evaluation. He reports that he was walking down the stairs at [employer] he would reach for the railing but ultimately missed the railing resulting in a fall forward landing onto his right knee and subsequently onto his head. He denies any loss of consciousness. Nose use of anticoagulants or known coagulation disorders. He was placed in a hard cervical spine collar by EMS but he denies having neck pain. He endorses discomfort to the right frontal hematoma and superficial abrasion that is present. He denies any notable headache, dizziness, lightheadedness, neck pain, neck stiffness, vision changes, chest pain, shortness of breath. He denies any symptoms preceding the fall reporting it to be strictly mechanical in nature. He has an abrasion to the right knee with localized pain. Denies any numbness or tingling to the extremity. Related Data Home Medications ?Medication ?Instructions ?Recorded ?Confirmed pantoprazole 40 mg tablet,delayed 40 mg PO DAILY 05/18/20 08/20/24 release simvastatin 80 mg tablet 80 mg PO BEDTIME 05/18/20 08/20/24 aspirin 81 mg tablet 81 mg PO DAILY 07/21/20 08/20/24 cranberry 405 mg capsule 405 mg PO DAILY 07/04/23 08/20/24 finasteride 5 mg tablet 5 mg PO DAILY 07/04/23 08/20/24 Previous Rx's ?Medication ?Instructions ?Recorded tamsulosin 0.4 mg capsule 0.8 mg (2 x 0.4 mg) PO DAILY #180 03/22/22 caps diclofenac sodium 1 % topical gel 2 g topical QID #100 grams 07/18/24 losartan 25 mg tablet 25 mg PO DAILY PRN SBP > 140 mmHg 08/22/24 30 days #30 tabs metoprolol succinate 100 mg 150 mg (1.5 x 100 mg) PO BID 90 08/22/24 tablet,extended release 24 hr days #270 tabs Allergies Allergy/AdvReac Type Severity Reaction Status Date / Time morphine [MORPHINE] Allergy Severe CONFUSION Verified 09/01/24 12:45 oxycodone [OXYCODONE] Allergy Severe CONFUSION Verified 09/01/24 12:45 hydrochlorothiazide Allergy Mild MUSCLE Verified 09/01/24 12:45 [Hydrochlorothiazide] CRAMPS, leg cramps lisinopril [From Zestril] Allergy Mild COUGH Verified 09/01/24 12:45 amlodipine [From Norvasc] AdvReac Mild DIZZINESS Verified 09/01/24 12:45 irbesartan [From Avapro] AdvReac Mild DIZZINESS Verified 09/01/24 12:45 Review of Systems Review of Systems: Yes all other systems are reviewed and are negative PMFSH Past Medical History Attestation statement: The following information was validated with the patient. Source: old records reviewed Medical History UTI (urinary tract infection) High cholesterol CAD (coronary artery disease) BPH (benign prostatic hyperplasia) Surgical History S/P triple vessel bypass Social History Social History Household Members: Spouse Housing: House Do you presently have visiting nurse or other home services: No Alcohol intake: unknown Patient Tobacco Use Status: Never used Tobacco e-Cigarette/Vaping Use: Never Used Second Hand Smoke Exposure: No Advance Directives: No Advance Directives Information Provided: Yes service: No Current occupational status: retired (20 years) and disabled Current occupational exposures/hazards: No Cognitive needs: No Hearing needs: No Vision needs: Yes (Glasses) Physical Exam Vital Signs: Vital Signs: Last Vital Signs Temp 97 F 09/01/24 12:44 Pulse 68 09/01/24 12:44 Resp 20 09/01/24 12:44 BP 169/80 H 09/01/24 12:44 Pulse Ox 95 09/01/24 12:44 O2 Del Method Room Air 09/01/24 12:44 BMI result Body Mass Index 43.2 Appearance: Alert.?Oriented to person, place and time. No acute distress.?Normal affect. Head: Normocephalic. Right frontal forehead/scalp hematoma with superficial abrasion no active bleeding Eyes: Pupils equal, round and reactive to light. EOMI. Conjunctiva and sclera normal? No [place] sign noted. No raccoon eyes noted ENT: No septal hematoma, nares patent bilaterally. External auditory canal normal tympanic membrane pearly martinez and intact bilaterally. Dentition normal, no fractured teeth. No lesions or lacerations of oropharynx. Uvula midline. Moist mucous membranes. Neck: Normal inspection.? Neck supple.??No palpable tenderness, step-off, deformities. CVS: Heart sounds normal. Normal heart rate and rhythm.? Pulses normal.?? Respiratory: No respiratory distress.? Lung sounds clear to auscultation bilaterally?? Abdomen: Soft and non-tender. Normoactive bowel sounds. ?? Skin: Skin warm and dry.? Normal skin color.? Extremities: No lower extremity edema.? Superficial abrasion to the right anterior knee tenderness upon palpation over the patella no appreciable deformity or 2+ DP/PT pulse bilaterally. Neuro: Moves all extremities spontaneously. Sensation intact bilaterally. CN II-XII intact. No focal neuro deficits. Course Reevaluation(s) Reevaluation #1: Head CT without ICH or skull fracture, cervical spine without acute fracture/subluxation. XR of the right knee without acute fracture dislocation. Ambulatory with steady gait. No complaints at this time. Requesting discharge home which I feel is reasonable. Discussed strict return precautions. Outpatient follow-up with PCP, worrisome signs and symptoms that would warrant re-evaluation emergency department. Stable for discharge Medical Decision Making Medical Decision Making MDM Narrative: Patient is an 84-year-old male with past medical history of hypercholesterolemia, CAD, BPH, UTI who presents to the emergency department via EMS for evaluation after mechanical trip and fall down the stairs resulting in a superficial abrasion to the right frontal forehead with hematoma no active bleeding. No focal neurological deficits. In addition a superficial abrasion to the right knee with notable tenderness over the patella upon palpation without obvious deformity. Obtaining CT head and cervical spine to exclude ICH, SDH, fracture, subluxation in addition to XR of the right knee to evaluate for patellar fracture. Extremities neurovascularly intact distally. Reports tetanus vaccination is up-to-date. Differential Diagnosis Differential Diagnoses: The differential diagnosis associated with the presentation includes (See narrative above) Admission/Observation Consideration of admission/observation: Escalation of care including admission/observation considered (See narrative above) Independent Interpretation I performed an independent interpretation of an: Plain X-Ray (No acute fracture of the right knee) and CT Scan (No ICH, no skull fracture) Radiology Impression Discussion of test interpretation with radiology: I have reviewed the radiologist's reading. Radiologist Impression: 4 view right knee Comparison: DX - XR KNEE RT 3V - 07/29/24 10:40 EST Findings: No acute fracture. An intra-articular body is present without change. There are mild arthritic changes. No joint effusion. No radiopaque foreign body. Surgical clips within the medial soft tissues. Vascular calcifications are present. IMPRESSION: 1. No acute findings. CT head without contrast Comparison: None Findings: No intra-axial mass, midline shift, hydrocephalus, or acute hemorrhage. Involutional change of brain parenchyma, compatible with age. Mild white matter disease. The visualized paranasal sinuses and mastoid air cells are normal. The orbits are within normal limits. Right frontal scalp contusion. No skull fracture. IMPRESSION: No skull fracture or intracranial hemorrhage. Independent Historian Clinical information obtained from an independent historian. History obtained from or confirmed by: Spouse and EMS External Record Review External record reviewed: Outpatient record Prescription Management I considered prescription management with: Pain Medication Discharge Plan Discharge Clinical Impression: Traumatic hematoma of forehead, Abrasion of knee, right, Fall Instructions: Fall Prevention for Older Adults (ED), Hematoma (ED) Prescriptions: No Action tamsulosin 0.4 mg capsule 0.8 mg PO DAILY Qty: 180 1RF metoprolol succinate 100 mg tablet extended release 24 hr 150 mg PO BID 90 Days Qty: 270 4RF losartan 25 mg tablet 25 mg PO DAILY PRN (Reason: SBP > 140 mmHg) 30 Days Qty: 30 1RF aspirin 81 mg Tablet 81 mg PO DAILY diclofenac sodium 1 % gel 2 g topical QID Qty: 100 0RF Rx Instructions: apply to single elbow, wrist or hand; for hand includes palm/fingers/back of hand pantoprazole 40 mg tablet,delayed release (DR/EC) 40 mg PO DAILY simvastatin 80 mg tablet 80 mg PO BEDTIME finasteride 5 mg tablet 5 mg PO DAILY cranberry 405 mg capsule 405 mg PO DAILY Rx Instructions: administer with a meal Referrals: Yfn Tran MD [Primary Care Provider] - Print Language: Ivorian
--- NOTE | 2024-09-01 14:41 | PC.NURSE ---
c collar was removed with approval of ED provider, patient denies any neck or back pain. patient is alert and oriented x4. patient able to ambulate with 1 assist with steady gait, patient normally walks with cane which he does not have with him. ED provider made aware
[2024-09-01 15:16] VITALS: BP 186/94; PULSE 67; RESP 20; TEMP 36.6; O2SAT 95
== END 2024-09-01 15:17 | disposition home or self-care (01) ==
PROVIDERS: Emergency Provider Emergency Medicine; PCP Family Medicine
DX: S00.83XA Contusion of other part of head, initial encounter (principal); S80.211A Abrasion, right knee, initial encounter; R51.9 Headache, unspecified; M54.2 Cervicalgia; M25.561 Pain in right knee; W10.9XXA Fall (on) (from) unspecified stairs and steps, initial encounter; Y93.01 Activity, walking, marching and hiking; Y92.22 Religious institution as the place of occurrence of the external cause; Y99.8 Other external cause status; Z91.81 History of falling
CPT/HCPCS: 70450; 72125; 73564; 99282; 99284

== ENCOUNTER → 2024-09-01 13:05 | Outpatient (BNV) | payer MEDICARE, SELFPAY | PROVIDERS: Emergency Provider Emergency Medicine; PCP Family Medicine; Visit Provider Radiology Diagnostic Radiology | DX: M45.2 Ankylosing spondylitis of cervical region (principal); M50.30 Other cervical disc degeneration, unspecified cervical region; S00.03XA Contusion of scalp, initial encounter; M25.561 Pain in right knee | CPT/HCPCS: 70450; 72125; 73564 ==

== ENCOUNTER 2024-09-16 10:50 | Outpatient (AMB) | payer MEDICARE, SELFPAY ==
--- NOTE | 2024-09-16 11:08 | MHC.PC.OV ---
Vital Signs 09/16/24 11:12 Height 5 ft 3 in Weight 226 lb 4 oz BMI 40.1 BP 170/76 H Blood Pressure Location Lt brachial Position Sitting Respiration 14 Pulse 67 Pulse Source Pulse Oximeter Temp 97.9 F Temp Source Oral Pulse Oximetry (%) 97 Oxygen Delivery Method Room Air Intake Visit Reasons: ED FU PT. had a fall Intake Note: ed f/u Allergies morphine [MORPHINE] Allergy (Severe, Verified 09/16/24 11:09) CONFUSION oxycodone [OXYCODONE] Allergy (Severe, Verified 09/16/24 11:09) CONFUSION hydrochlorothiazide [Hydrochlorothiazide] Allergy (Mild, Verified 09/16/24 11:09) MUSCLE CRAMPS, leg cramps lisinopril [From Zestril] Allergy (Mild, Verified 09/16/24 11:09) COUGH amlodipine [From Norvasc] Adverse Reaction (Mild, Verified 09/16/24 11:09) DIZZINESS irbesartan [From Avapro] Adverse Reaction (Mild, Verified 09/16/24 11:09) DIZZINESS Tobacco use date assessed: 02/05/24 Dental Screening Dental Screen Date: 11/17/23 HPI ED FU PT. had a fall HPI Details 84 y/o male presents to f/u hospital visit for a fall 09/01/24. R knee XR showed no acute fractures. CT head showed no skull fractures/intracranial hemorrhage. Had missed the railing resulting in fall forward, landing on his R knee and subsequently onto his head. BP today 170/76, 67p. Pt notes he has whitecoat syndrome and BP at home have been good. [facility] Medical History UTI (urinary tract infection) High cholesterol CAD (coronary artery disease) BPH (benign prostatic hyperplasia) Surgical History S/P triple vessel bypass Social History Household Members: Spouse Housing: House Do you presently have visiting nurse or other home services: No Alcohol intake: unknown Patient Tobacco Use Status: Never used Tobacco e-Cigarette/Vaping Use: Never Used Second Hand Smoke Exposure: No service: No Current occupational status: retired and disabled Current occupational exposures/hazards: No Cognitive needs: No Hearing needs: No Vision needs: Yes (Glasses) Questionnaire Thrive Questionnaire Date Thrive assessed: 08/14/24 I am a: Patient What is your living situation today?: I have a steady place to live Within the past 12 months, did the food you bought not last and you didn't have the money to get more?: Never true Within the past 12 months, did you worry whether your food would run out before you got money to buy more?: Never true Do you have trouble paying for medicines?: No Do you have trouble getting transportation to medical appointments?: No Do you have trouble paying your heating and electricity bill?: No Do you have trouble taking care of your child, family member or friend?: No Do you have trouble with day-to-day activities such as bathing, preparing meals, shopping, managing finances, etc.?: No Are you currently unemployed and looking for a job?: No Are you interested in more education?: No Please select the resources that you would like help with: None Currently or been in a relationship where the following occur: No concerns reported THRIVE Score: 0 SHAYLEE-7 AMB Questionnaire SHAYLEE-7 Date SHAYLEE - 7 assessed: 11/17/23 Source: Developed by Drs. Dewayne Eden, Drea Delgado, Pierce Cao and colleagues, with an educational pj from [employer]. Review of Systems Const Denies chills, Denies fatigue, Denies fever(s), Denies headache(s) and Denies weakness ENT Denies dizziness and Denies headache(s) Card Denies dyspnea Resp Denies cough, Denies dyspnea, Denies wheezing and Denies other (shortness of breath) Musc Denies numbness and Denies tingling Neuro Denies dizziness, Denies headache(s), Denies numbness, Denies tingling and Denies weakness Psych Denies anxiety and Denies depression Endo Denies fatigue Aller/Immun Denies wheezing Physical exam (Primary Care) Vital Signs: Last Vital Signs Temp 97.9 F 09/16/24 11:12 Pulse 67 09/16/24 11:12 Resp 14 09/16/24 11:12 BP 170/76 H 09/16/24 11:12 Pulse Ox 97 09/16/24 11:12 Oxygen Delivery Method Room Air 09/16/24 11:12 BMI result Body Mass Index 40.1 Tobacco/Smoking Status: Tobacco use Status Tobacco use date assessed 02/05/24 09/16/24 11:17 Patient Tobacco Use Status Never used Tobacco 09/16/24 11:17 e-Cigarette/Vaping Use Never Used 09/16/24 11:17 Thrive Assessment: Date of Thrive Assessment Date Thrive assessed 08/14/24 09/16/24 11:17 Currently or been in a relationship where the following occur: No concerns reported Const General: well developed; No acute distress Nutritional Appearance: well nourished Orientation/consciousness: patient oriented x3 HENMT Head: Yes normocephalic and Yes atraumatic Eyes General: appearance normal, both eyes and all related structures Pupils: Equal, round and reactive pupils present EOM: EOMs intact bilaterally Resp Effort & Inspection: normal respiratory effort Auscultation: clear to auscultation bilaterally Cardio Rate: regular rate Rhythm: regular rhythm Heart sounds: S1 normal heart sound present, S2 normal heart sound present, no gallops, no murmurs and no rubs Neuro General: patient oriented x3 and gait normal Cranial nerves: Yes Equal, round and reactive pupils present Psych Affect: normal affect Coding Level of Care Code Est Pt Level 3 (01800) Diagnoses Essential hypertension I10 White coat syndrome with diagnosis of hypertension I10 Abrasion of knee, right S80.211A Hematoma T14.8XXA Status post fall Z91.81 Assessment & Plan Assessment & Plan (1) Essential hypertension: Code(s): I10 - Essential (primary) hypertension Category: Medical Plan: Blood?pressure?is?in?the?office?are?high?however?patient?has?well?documented?white?coat?syndrome?and?systolic?blood?pressures?at?home?are?running around?135. Controlled?at?home?and?known?white?coat?syndrome Continue?current?medication (2) White coat syndrome with diagnosis of hypertension: Code(s): I10 - Essential (primary) hypertension Category: Medical Plan: As?above (3) Abrasion of knee, right: Code(s): S80.211A - Abrasion, right knee, initial encounter Category: Medical Plan: Contusion?and?abrasion?of?right?knee?with?3?cm?scab Can?use?a?moisturizer around?this Should?resolve?on?its?own (4) Hematoma: Code(s): T14.8XXA - Other injury of unspecified body region, initial encounter Category: Medical Plan: Forehead?hematoma?s/p?fall?and impact?to?forehead CT?scan?showed?no intracranial?hemorrhage?and?no?fractures. Resolving Can?use?cold?compresses (5) Status post fall: Code(s): Z91.81 - History of falling Category: Medical Plan: As above This?was?a?mechanical?fall Encouraged?patient?to?continue?using?his?cane?in?use?railings?on?stairs.
[2024-09-16 11:12] VITALS: BP 170/76; PULSE 67; RESP 14; TEMP 36.6; O2SAT 97; BMI 40.1
== END 2024-09-16 14:17 | disposition home or self-care (01) ==
PROVIDERS: PCP Family Medicine; Visit Provider Family Medicine
DX: I10 Essential (primary) hypertension (principal); S80.211A Abrasion, right knee, initial encounter; T14.8XXA Other injury of unspecified body region, initial encounter; Z91.81 History of falling

== ENCOUNTER → 2024-09-16 10:50 | Outpatient (BNVA) | payer MEDICARE, SELFPAY | PROVIDERS: PCP Family Medicine; Visit Provider Family Medicine | DX: I10 Essential (primary) hypertension (principal); S80.211D Abrasion, right knee, subsequent encounter; T14.8XXD Other injury of unspecified body region, subsequent encounter; Z91.81 History of falling | CPT/HCPCS: 99212 ==

== ENCOUNTER 2024-10-30 10:05 | Outpatient (AMB) | payer MEDICARE, SELFPAY ==
--- NOTE | 2024-10-30 10:17 | MHC.OFFVIS ---
Vital Signs 10/30/24 10:22 Height 5 ft 3 in Weight 226 lb BMI 40.0 Intake Visit Reasons: Bilateral knee pains Intake Note: Mohamud is an 84 year old male who presents with complaints of bilateral knee pains. He describes his pains as sharp and severe in nature. He has failed the last 3 months of conservative treatment which has included a home exercise program, topical creams, Tylenol and ibuprofen. The patient states that at this point his knee pains are interfering with his activities of daily living and his ability to sleep well through the night. He has had cortisone injections in the past. The most recent injection gave him minimal relief. The patient wishes to hold off on total knee replacement surgery for as long as possible. Allergies morphine [MORPHINE] Allergy (Severe, Verified 10/30/24 10:18) CONFUSION oxycodone [OXYCODONE] Allergy (Severe, Verified 10/30/24 10:18) CONFUSION hydrochlorothiazide [Hydrochlorothiazide] Allergy (Mild, Verified 10/30/24 10:18) MUSCLE CRAMPS, leg cramps lisinopril [From Zestril] Allergy (Mild, Verified 10/30/24 10:18) COUGH amlodipine [From Norvasc] Adverse Reaction (Mild, Verified 10/30/24 10:18) DIZZINESS irbesartan [From Avapro] Adverse Reaction (Mild, Verified 10/30/24 10:18) DIZZINESS Medication List - Last Reconciled 10/30/24 by Raad Mills MD aspirin 81 mg PO DAILY cranberry extract 405 mg PO DAILY diclofenac sodium 1% 2 grams topical QID finasteride 5 mg PO DAILY losartan 25 mg PO DAILY PRN 30 days metoprolol succinate ER 150 mg (1.5 x 100 mg) PO BID 90 days pantoprazole 40 mg PO DAILY simvastatin 80 mg PO BEDTIME tamsulosin 0.8 mg (2 x 0.4 mg) PO DAILY [facility] Medical History UTI (urinary tract infection) High cholesterol CAD (coronary artery disease) BPH (benign prostatic hyperplasia) Surgical History S/P triple vessel bypass Social History Household Members: Spouse Housing: House Do you presently have visiting nurse or other home services: No Alcohol intake: unknown Patient Tobacco Use Status: Never used Tobacco e-Cigarette/Vaping Use: Never Used Second Hand Smoke Exposure: No service: No Current occupational status: retired and disabled Current occupational exposures/hazards: No Cognitive needs: No Hearing needs: No Vision needs: Yes (Glasses) Physical Exam Vital Signs: BMI result Body Mass Index 40.0 Const Other: Well-nourished well-developed very friendly male awake alert and oriented x3 in no acute distress Extrem Other: Bilateral lower extremity examination shows good capillary refill, no skin lesions noted, normal sensation light touch Bilateral knee examination shows minimal effusions, palpable crepitus with range of motion, pain with range of motion, range of motion from -3 degrees to 110 degrees, no instability Results Reviewed Results Reviewed: X-rays of the patient's bilateral knee show joint space narrowing, subchondral sclerosis, no acute bony abnormalities Assessment & Plan Assessment & Plan (1) Osteoarthritis of left knee: Code(s): M17.12 - Unilateral primary osteoarthritis, left knee Category: Medical (2) Osteoarthritis of right knee: Code(s): M17.11 - Unilateral primary osteoarthritis, right knee Category: Medical Plan Mr. Blakely presents with bilateral knee pains due to osteoarthritis. I had a lengthy discussion with the patient regarding the treatment options. He wishes to hold off on surgery for as long as possible. I agree with this plan. He has not gotten good relief from cortisone injections in the past. Thus, I will see whether or not his insurance company will cover a viscosupplementation injection, such as Durolane, for both of his knees. I will see him back once the injections are available. Feel free to call me at any time should questions regarding his orthopedic management arise. I spent 22 minutes in reviewing the patient's records and imaging studies, seeing the patient and documenting in the medical record. Coding Level of Care Code Est Pt Level 3 (68584) Complex EM visit Add On G2211 Diagnoses Osteoarthritis of left knee M17.12 Osteoarthritis of right knee M17.11
[2024-10-30 10:22] VITALS: BMI 40.0
--- OUTSIDE RECORDS SUMMARY | 2024-10-30 11:36 | XMS_ITS | Encounter Summary ---
Author Organization [facility] Address [address] [facility] [address] [place] [address] Phone Care Team Providers Care Registered Dental Hygienist Name Role Phone Yfn Tran MD Primary Care Provider [phone] Encounter Details Date Type Department Care Team (Late st Contact Info) Description 12/16/2020 Orders Only [facility] [address] [place] [address] Provider, MD Crystal [address] [place] [id number] Social History Tobacco Use Types Packs/Day Years Used Date Smoking Tobacco: Never Alcohol Use Standard Drinks/Week Comments Yes 0 (1 standard drink = 0.6 oz pure alcohol) Alcoholic Drinks/day: Occasional social drink Sex and Gender Information Value Date Recorded Sex Assigned at Not on file Legal Sex Male 4:54 PM EST Gender Identity Not on file Sexual Orientation Not on file documented as of this encounter Plan of Treatment Upcoming Encounters Date Type Department Care Team (Late st Contact Info) Description 12/04/2024 2:00 PM EDT Office Visit [facility] [address] [place] [address] Lukas Morales MD [address] [facility] [address] [place] [address] documented as of this encounter Procedures Procedure Name Priority Date/Time Associated Diagnosis Comments EXT RESULT ENTRY Routine 12/16/2020 documented in this encounter Results * EXT RESULT ENTRY (12/16/2020) us Historical Provider LAB BLOOD ORDERABLES Conchita l Result documented in this encounter Visit Diagnoses Not on filedocumented in this encounter Care Teams Registered Dental Hygienist Relationship Specialty Start Date End Date Yfn Tran MD [address] [address] PCP - General Family Medicine 11/16/22 documented as of this encounter
--- OUTSIDE RECORDS SUMMARY | 2024-10-30 11:36 | XMS_ITS ---
Author Organization [facility] Address [address] [place] [address] Care Team Providers Care Bell Ringer Name Role Phone Yfn Tran Primary Care Provider UnavailAlan Friedman Jr Unavailable [phone] Allergies Allergen (clinical drug ingredient) Drug/Non Drug Allergy documented on EMR Reaction Allergy Type Onset Date Status nitrofurantoin Macrodantin Unknown Drug Allergy Active hydrochlorothiazide Hydrochlorothiazide Unknown Drug Aller gy Active irbesartan Avapro Unknown Drug Allergy Active Aleve Unknown Drug Allergy Active lisinopril Zestril Unknown Drug Allergy Active amlodipine Norvasc Unknown Drug Allergy Active naproxen Naprosyn Unknown Drug Allergy Active REASON FOR VISIT Patient presents today for gerd Medications Medication SIG (Take, Route, Frequency, Duration) Notes [...] with food Orally Twice a day Active Social History Tobacco Use: Social History Observation Description Date Details (start date - stop date) Former Smoker NA - NA Tobacco Use/Smoking Question Answer Notes Patient is [...] Never (0 point) Points 1 Interpretation Negative Vital Signs Temperature 98.0 degrees Fahrenheit 01/17/20 24 Blood pressure systolic 000 mm Hg 01/17/20 24 Blood pressure diastolic 00 mm Hg 024 Height 70 in 01/17/2024 Weight 240 lbs 01/17/2024 BMI 34.43 kg/m2 01/17/2024 Encounters Encounter Location Date Provider Diagnosis [facility] [address] [facility] [address] [place] [address] 01/17/2024 Alan Kenney Jr Gastroesophageal reflux disease without esophagitis K21.9 and Colon cancer screening Z12.11 Assessments Encounter Date Diagnosis (ICD Code) Assessment Notes Treatment Notes Treatment Clinical Notes Section Notes 01/17/2024 Gastroesophageal reflux disease without esophagitis (ICD-10 - K21.9) Alireza is currently doing well. He will continue pantoprazole. We discussed diet, lifestyle modifications , and weight management regarding the treatment of reflux. Followup will be in one year. He will call if he has problems. 01/17/2024 Colon cancer screening (ICD-10 - Z12.11) Alireza is currently doing well. He will continue pantoprazole. We discussed diet, lifestyle modifications , and weight management regarding the treatment of reflux. Followup will be in one year. He will call if he has problems. Plan Of Treatment Medication Medication Name Sig Start Date Stop Date Notes Pantoprazole Sodium 40 MG TAKE 1 TABLET BY MOUTH EVERY DAY for 90 days Next Appt Details Follow Up: 1 Year, Reason: Provider Name:Alan castanon Jr, 01/20/2025 09:20:00 AM, [address], [address], [place], [address], Progress Notes * ALIREZA GAYTAN LDOB: 0 (83 yo M)Acc No.[id number]:01/17/2024 Progress Notes Patient:?ALIREZA GAYTAN Account Number: Provider:?Alan Kenney MD :1940???Age:83 Y???Sex:Male Seun e:01/17/2024 Address:[address] [place] [address] [address], [place], [place] Pcp:Yfn Tran Subjective: * Chief Complaints: * ???1. Patient presents today for gerd. * HPI: ???New symptom(s):? Alireza is a pleasant 83-year-old man seen today in followup of gastroesophageal reflux disease. Since we saw him last, he's been doing well. He has no complaints of dysphagia, hematemesis, or melena. Weight and appetite have been stable. He continues on pantoprazole 40 mg daily. * Medical History:?Hyperlipide terrie, Hypertension, BPH, Gastroesophageal reflux disease, EGD 08/18, and no H. pylori or Gaytan's esophagus, Coronary artery disease, [place] 06/14, Chronic kidney disease stage III, Colonoscopy 08/18, cecal tubular adenoma, followup optional based on age. * Surgical History:?hemorrhoid ectomy , CABG x3 2007, cholecystectomy , cystoscopy 12/2013. * Family History:?Father: dece ased, esophageal cancer.?Mother: .?Siblings: alive, brother, diagnosed with HTN (hypertension).? Denies family history of colon cancer, colon polyps, inflammatory bowel disease, nor liver disease. * Social History:?Tobacco Use:?Tobacco Use/Smoking?Patient is a?former smoker,?When did you stop smoking??35 years ago.?Drugs/Alcohol:?Alcohol Screen?Did you have a drink containing alcohol in the past year??Yes,?How often did you have a drink containing alcohol in the past year??Monthly or less (1 point), How many drinks did you have on a typical day when you were drinking in the past year??1 or 2 drinks (0 point),?How often did you have 6 or more drinks on one occasion in the past year??Never (0 point),?Points?1,?Interpretation?Negative.?Miscellaneous:?Marital status: . Occupation: retired. * Medications:?Taking Aspirin 81 MG Tablet Chewable 1 tablet Orally Once a day, Taking Simvastatin 80 MG Tablet 1 tablet in the evening Orally Once a day, Taking Tamsulosin HCl 0.4 MG Capsule 1 capsule 30 minutes after the same meal each day Orally Once a day, Taking Metoprolol Tartrate 100 MG Tablet 1 1/2 tablet with food Orally Twice a day, Taking Probiotic 250 MG Capsule 1 capsule Orally once a day, Taking Centrum Silver 50+Men - Tablet 1 Orally QD, Taking Pantoprazole Sodium 40 MG Tablet Delayed Release TAKE 1 TABLET BY MOUTH EVERY DAY , Taking Metoprolol Succinate ER 100 MG Tablet Extended Release 24 Hour Oral , Taking Finasteride 5 MG Tablet Oral , Medication List reviewed and reconciled with the patient * Allergies:?Aleve, Hydrochlor othiazide, Zestril, Naprosyn, Norvasc, Avapro, Macrodantin. Objective: * Vitals:?Wt: 240 lbs, Ht: 70 in, BMI:34.43 Index, BP: 000/00 mm Hg, Temp: 98.0. * Examination: ???General Examination: ???On examination today, he appears well. Skin is anicteric. Lungs are clear. Heart shows a regular rate and rhythm. Abdomen is soft no focal masses or tenderness. Extremities are without edema. Assessment: * Assessment: 1.?Gastroesophageal reflux d isease without esophagitis - K21.9 (Primary)?2.?Colon cancer screening - Z12.11? Alireza is currently doing well . He will continue pantoprazole. We discussed diet, lifestyle modifications, and weight management regarding the treatment of reflux. Followup will be in one year. He will call if he has problems. Plan: * Treatment: * Procedure Codes:?G9903 Pt sc rn tbco id as non user, G9744 PATIENT NOT ELIG D/T ACTIVE DX HTN * Preventive Medicine:? ??Counseling:?Care goal follow-up plan:?Above Normal BMI Follow-up?Giving encouragement to exercise,?BMI management provided?Yes.? * Follow Up:?1 Year * * Sign off status: Completed true * Provider:?Alan Kenney MD Date:?0 01/17/2024 Generated for Jarrod stephens/Bubba/Lela on:?10/30/2024 11:35 AM EDT History and Physical Notes * HPI (History of Present Illness) Category Sub-Category Detail Notes Category Not es New symptom(s) Alireza is a ple asant 83-year-old man seen today in followup of gastroesophageal reflux disease. Since we saw him last, he's been doing well. He has no complaints of dysphagia, hematemesis, or melena. Weight and appetite have been stable. He continues on pantoprazole 40 mg daily. Examination Category Sub-Category Detail Notes Category Not es General Examination On exami nation today, he appears well. Skin is anicteric. Lungs are clear. Heart shows a regular rate and rhythm. Abdomen is soft no focal masses or tenderness. Extremities are without edema.
--- OUTSIDE RECORDS SUMMARY | 2024-10-30 11:36 | XMS_ITS | Clinical Summary ---
Author Organization [facility] Address [address] [place] [address] Phone Care Team Providers Care Plasma Center Technician Name Role Phone Yfn Tran MD Primary Care Provider [phone] Allergies Active Allergy Reactions Criticality Noted Date Comments Amlodipine Other (see comments) 10/27/2020 Hydrochlorothiazide Other (see comments) 2020 Irbesartan Other (see comments) 10/27/2020 Lisinopril Other (see comments) 10/27/2020 Nitrofurantoin 11/16/2021 Medications Multiple Vitamins-Minera ls (CENTRUM SILVER ULTRA MENS PO) Active aspirin (ST TEREZA) 81 MG EC tablet Take 1 tablet by mouth 1 (one) time each day Active metoprolol succinate XL (TOPROL-XL) 100 MG 24 hr tablet Take 1.5 tablets by mouth 2 (two) times a day Active pantoprazole (Protonix) 40 MG EC tablet Take 1 tablet by mouth 1 (one) time each day Active simvastatin (ZOCOR) 80 MG tablet Take 1 tablet by mouth 1 (one) time each day in the evening Active tamsulosin (FLOMAX) 0.4 MG 24 hr capsule Take 1 capsule by mouth in the morning and 1 capsule in the evening. Active nitroglycerin (NITROSTAT) 0.4 MG SL tablet See Instructions, PRN Chest Pain, 0.4 mg Sublingual Every 5 minutes not to exceed 3 doses/15 min--if pain persists, seek medical attention, # 10 tablet, 0 Refills, Maintenance, 10/02/14 16:35:34, Tablet, 0.4 mg Sublingual Every 5 minutes; not to exce... 5 Active finasteride (PROSCAR) 5 MG tablet Take 5 mg by mouth 1 (one) time each day in the evening 4 Active Active Problems Problem Noted Date Diagnosed Date Severe obesity 11/16/2022 Coronary arteriosclerosis 11/16/2021 Hyperlipidemia 11/16/2021 Chronic kidney disease 10/28/2020 Essential hypertension 10/27/2020 Immunizations Name Administration Dates Next Due Influenza Whole 06/15/2009 Family History Medical History Relation Comments Cancer Father Relation Status Comments Father Mother Social History Tobacco Use Types Packs/Day Years Used Date Smoking Tobacco: Former Smokeless Tobacco: Never Tobacco Cessation:Counseling Given: No Alcohol Use Standard Drinks/Week Comments Yes 0 (1 standard drink = 0.6 oz pure alcohol) Alcoholic Drinks/day: Occasional social drink Sex and Gender Information Value Date Recorded Sex Assigned at Not on file Legal Sex Male 4:54 PM EST Gender Identity Not on file Sexual Orientation Not on file Last Filed Vital Signs Vital Sign Reading Time Taken Comments Blood Pressure 193/83 11/15/2023 1:34 PM EDT Pulse 75 11/15/2023 1:34 PM EDT Temperature - - Respiratory Rate - - Oxygen Saturation - - Inhaled Oxygen Concentration - - Weight 107 kg (235 lb) 11/15/2023 1:34 PM EDT Height 177.8 cm (5' 10 ) 10/30/2019 12:00 PM EDT Body Mass Index 33.72 10/30/2019 12:00 PM EDT Plan of Treatment Upcoming Encounters Date Type Department Care Team (Late st Contact Info) Description 12/04/2024 2:00 PM EDT Office Visit [facility] [address] [place] [address] Lukas Morales MD [address] [address] Health Maintenance Due Date Last Done Comments Pneumococcal Vaccine: 65+ Ye ars (1 of 2 - PCV) 01/17/1946 Influenza Vaccine (#1) 2024 06/15/2009 Hepatitis B Vaccine Aged Out No longe r eligible based on patient's age to complete this topic [place] [place] [address] MEDICARE [facility] MEDICARE Care Teams Plasma Center Technician Relationship Specialty Start Date End Date Yfn Tran MD [address] [facility] [address] [place] [id number] PCP - General Family Medicine 11/16/22
--- OUTSIDE RECORDS SUMMARY | 2024-10-30 11:36 | XMS_ITS | Patient Health Record ---
Author Organization [facility] Address [address] [place] [address] Care Team Providers Care Graduate Internship Name Role Phone Yfn Tran Primary Care Provider Unavailab Alan Verdin Jr Unavailable [phone] Allergies Allergen (clinical drug ingredient) Drug/Non Drug Allergy documented on EMR Reaction Allergy Type Onset Date Status nitrofurantoin Macrodantin Unknown Drug Allergy Active hydrochlorothiazide Hydrochlorothiazide Unknown Drug Aller gy Active irbesartan Avapro Unknown Drug Allergy Active Aleve Unknown Drug Allergy Active lisinopril Zestril Unknown Drug Allergy Active amlodipine Norvasc Unknown Drug Allergy Active naproxen Naprosyn Unknown Drug Allergy Active Reason For Referral No Information Medications Medication SIG (Take, Route, Frequency, Duration) [...] with food Orally Twice a day Active Immunizations Vaccine Route Administration Date Status Comme nts Flu vaccine no Preserv 3 and > Unknown 04/11/2017 Admin istered Influenza Unknown 06/07/2019 Administered Influenza Unknown 06/28/2022 Administered Influenza Unknown 06/20/2023 Administered Social History Tobacco Use: Social History Observation [...] Never (0 point) Points 1 Interpretation Negative Problems Problem Type SNOMED Code ICD Code Onset Dates Problem Status W/U Status Risk Notes Problem 425250841 Colon cancer screening (Z12.11) Active confirmed Problem 244536284 Gastroesophageal reflux disease without esophagitis (K21.9) Active confirmed Problem 20237597 Hypertension, unspecified type (I10) Active confirmed Vital Signs Temperature 98.0 degrees Fahrenheit 01/17/2024 Blood pressure diastolic 00 mm Hg 01/17/2024 Height 70 in 01/17/2024 Blood pressure systolic 000 mm Hg 01/17/2024 Weight 240 lbs 01/17/2024 BMI 34.43 kg/m2 01/17/2024 Encounters Encounter Location Date Provider Diagnosis [facility] [address] [place] [address] 01/17/2024 Alan Kenney Jr Gastroesophageal reflux disease without esophagitis K21.9 and Colon cancer screening Z12.11 Assessments Encounter Date Diagnosis (ICD Code) Assessment Notes Treatment Notes Treatment Clinical Notes Section Notes 01/17/2024 Colon cancer screening (ICD-10 - Z12.11) Alireza is currently doing well. He will continue pantoprazole. We discussed diet, lifestyle modifications , and weight management regarding the treatment of reflux. Followup will be in one year. He will call if he has problems. 01/17/2024 Gastroesophageal reflux disease without esophagitis (ICD-10 - K21.9) Alireza is currently doing well. He will continue pantoprazole. We discussed diet, lifestyle modifications , and weight management regarding the treatment of reflux. Followup will be in one year. He will call if he has problems. Plan Of Treatment Next Appt Details Provider Name:Alna castanon Jr, 01/20/2025 09:20:00 AM, [address], [address], [place], [address], Insurance Providers Payer Name Payer Address Payer Phone Subscriber Number Group Number Insured Name Patient Relationship to Insured Coverage Start Date Coverage End Date MEDICARE OF [place] [address] [place] [address] [phone] [id number] ALIREZA GAYTAN Self - patient is the insured MEDEX ATTN CLAIMS [address] [place] [address] [id number] ALIREZA GAYTAN Self - patient is the insured Medical (General) History Medical History History ICD Code Hyperlipidemia hypertension BPH Gastroesophageal reflux dise ase, EGD 08/18, and no H. pylori or Gaytan's esophagus Coronary artery disease, [place] 06/14 Chronic kidney disease stage III Colonoscopy 08/18, cecal tubular adenoma, followup optional based on age Surgical History Surgery Date(Month/Year) hemorrhoidectomy CABG x3 2007 cholecystectomy cystoscopy 12/2013
== END 2024-10-30 10:38 | disposition home or self-care (01) ==
LOC: HO.HOS 10:06
PROVIDERS: PCP Family Medicine; Visit Provider Orthopaedic Surgery
DX: M17.0 Bilateral primary osteoarthritis of knee (principal)
CPT/HCPCS: 99213; G2211

== ENCOUNTER → 2024-10-30 10:05 | Outpatient (BNVA) | payer MEDICARE, SELFPAY | PROVIDERS: PCP Family Medicine; Visit Provider Orthopaedic Surgery | DX: M17.0 Bilateral primary osteoarthritis of knee (principal) | CPT/HCPCS: 99212 ==

== ENCOUNTER 2024-12-03 09:13 | Outpatient (AMB) | payer MEDICARE, SELFPAY ==
--- NOTE | 2024-12-03 09:23 | A.OFFVIS_ITS ---
Intake Visit Reasons: Inj-Willy knee Durolane injection Intake Note: Mohamud is an 84 year old male who presents with complaints of progressively worsening bilateral knee pains. The patient describes his pains as sharp in nature. He has had cortisone injections in the past which gave him temporary relief. He has also tried Tylenol and anti-inflammatory medicines which gave him minimal relief. He has not had a viscosupplementation injection. He wishes to hold off on surgery if at all possible. Allergies morphine [MORPHINE] Allergy (Severe, Verified 12/03/24 09:30) CONFUSION oxycodone [OXYCODONE] Allergy (Severe, Verified 12/03/24 09:30) CONFUSION hydrochlorothiazide [Hydrochlorothiazide] Allergy (Mild, Verified 12/03/24 09:30) MUSCLE CRAMPS, leg cramps lisinopril [From Zestril] Allergy (Mild, Verified 12/03/24 09:30) COUGH amlodipine [From Norvasc] Adverse Reaction (Mild, Verified 12/03/24 09:30) DIZZINESS irbesartan [From Avapro] Adverse Reaction (Mild, Verified 12/03/24 09:30) DIZZINESS Medication List - Last Reconciled 12/03/24 by Raad Mills MD aspirin 81 mg PO DAILY cranberry extract 405 mg PO DAILY diclofenac sodium 1% 2 grams topical QID finasteride 5 mg PO DAILY losartan 25 mg PO DAILY PRN 30 days metoprolol succinate ER 150 mg (1.5 x 100 mg) PO BID 90 days pantoprazole 40 mg PO DAILY simvastatin 80 mg PO BEDTIME tamsulosin 0.8 mg (2 x 0.4 mg) PO DAILY [facility] Medical History UTI (urinary tract infection) High cholesterol CAD (coronary artery disease) BPH (benign prostatic hyperplasia) Surgical History S/P triple vessel bypass Social History Household Members: Spouse Housing: House Do you presently have visiting nurse or other home services: No Alcohol intake: unknown Patient Tobacco Use Status: Never used Tobacco e-Cigarette/Vaping Use: Never Used Second Hand Smoke Exposure: No service: No Current occupational status: retired and disabled Current occupational exposures/hazards: No Cognitive needs: No Hearing needs: No Vision needs: Yes (Glasses) Physical Exam Const Other: Well-nourished well-developed very friendly male awake alert and oriented x3 in no acute distress Extrem Other: Bilateral lower extremity examination shows good capillary refill, no skin lesions noted, normal sensation light touch Bilateral knee examination shows minimal effusions, palpable crepitus with range of motion, pain with range of motion, no instability Office Procedures AMB Joint Injection/Aspiration Joint Injection/Aspiration Primary Site: left knee Prep: site was prepped using aseptic technique Injected: 60 mg of (Durolane viscosupplementation) and 1% plain lidocaine Procedure: The patient tolerated the procedure well Coding 45500 - Large joint Procedure code (CPT) selection complete AMB Joint Injection/Aspiration Joint Injection/Aspiration Primary Site: right knee Prep: site was prepped using aseptic technique Injected: 60 mg of (Durolane viscosupplementation) and 1% plain lidocaine Procedure: The patient tolerated the procedure well Coding 55539 - Large joint Procedure code (CPT) selection complete Results Reviewed Results Reviewed: X-rays of the patient's knees taken previously show joint space narrowing, subchondral sclerosis, no acute bony abnormalities Assessment & Plan Assessment & Plan (1) Osteoarthritis of left knee: Code(s): M17.12 - Unilateral primary osteoarthritis, left knee Category: Medical (2) Osteoarthritis of right knee: Code(s): M17.11 - Unilateral primary osteoarthritis, right knee Category: Medical Plan Mr. Blakely presents with bilateral knee pains due to osteoarthritis. The risks and benefits of bilateral knee Durolane viscosupplementation injections were discussed at length with the patient. The patient wished to proceed. He tolerated the injections well. He will continue with his home exercise program. He will contact me prior to his follow-up appointment in 3 months should any questions or concerns arise. Feel free to call me at any time should questions regarding his orthopedic management arise. I spent 20 minutes in reviewing the patient's records and imaging studies, seeing the patient and documenting in the medical record. Orders: Orders AMB Joint Injection/Aspiration Today M17.11 - Unilateral primary osteoarthritis, right knee AMB Joint Injection/Aspiration Today M17.12 - Unilateral primary osteoarthritis, left knee Coding Level of Care Code Est Pt Level 3 (57507) Complex EM visit Add On G2211 Diagnoses Osteoarthritis of left knee M17.12 Osteoarthritis of right knee M17.11 CPT Codes Coding - 62432 Large joint: 58802 - Large joint ([id number]) Coding - 76065 Large joint: 34061 - Large joint ([id number])
--- OUTSIDE RECORDS SUMMARY | 2024-12-03 10:02 | XMS_ITS | Clinical Summary ---
Author Organization [facility] Address [address] [place] [address] Phone Care Team Providers Care Tannery Worker Name Role Phone Yfn Tran MD Primary Care Provider [phone] Allergies Active Allergy Reactions Criticality Noted Date [...] kidney disease 10/28/2020 Essential hypertension 10/27/2020 Immunizations Immunization Administration Dates Next Due Influenza Whole 06/15/2009 [...] Visit [facility] [address] [place] [address] Lukas Morales MD [address] [address] Health Maintenance Due Date Last Done Comments Pneumococcal Vaccine: 50+ Ye ars (1 of 2 - PCV) 01/17/1959 Influenza Vaccine (Season Ended) 2025 06/15/20 09 Hepatitis B Vaccine Aged Out No longe r eligible based on patient's age to complete this topic Insurance [facility] Medicare [facility] Medicare Care Teams Tannery Worker Relationship Specialty Start Date End Date Yfn Tran MD [address] [facility] [address] [place] [address] PCP - General Family Medicine 11/16/22
--- OUTSIDE RECORDS SUMMARY | 2024-12-03 10:02 | XMS_ITS | Encounter Summary ---
Author Organization [facility] Address [address] [facility] [address] [place] [address] Phone Care Team Providers Care Supervisor Boat Outfitting Name Role Phone Yfn Tran MD Primary Care Provider [phone] Encounter Details Date Type Department Care Team (Late Contact Info) Description 12/16/2020 Orders Only [facility] [address] [place] [address] Provider, MD Crystal [address] [place] [address] Social History Tobacco Use Types Packs/Day [...] Office Visit [facility] [address] [place] [address] Lukas Morales MD [address] [facility] [address] [place] [address] documented as of this encounter Procedures Procedure Name Priority Date/Time Associated Diagnosis Comments EXT RESULT ENTRY Routine 12/16/2020 documented in this encounter Results * EXT RESULT ENTRY (12/16/2020) us Historical Provider LAB BLOOD ORDERABLES Conchita l Result documented in this encounter Visit Diagnoses Not on filedocumented in this encounter Care Teams Supervisor Boat Outfitting Relationship Specialty Start Date End Date Yfn Tran MD [address] [address] PCP - General Family Medicine 11/16/22 documented as of this encounter
== END 2024-12-03 10:07 | disposition home or self-care (01) ==
LOC: HO.HOS 09:14
PROVIDERS: PCP Family Medicine; Visit Provider Orthopaedic Surgery
DX: M17.0 Bilateral primary osteoarthritis of knee (principal)
CPT/HCPCS: 20610; 99213

== ENCOUNTER → 2024-12-03 09:13 | Outpatient (BNVA) | payer MEDICARE, SELFPAY | PROVIDERS: PCP Family Medicine; Visit Provider Orthopaedic Surgery | DX: M17.0 Bilateral primary osteoarthritis of knee (principal) | CPT/HCPCS: 20610; 99212; J2003; J7318 ==

== ENCOUNTER 2024-12-17 08:16 | Outpatient (AMB) | payer MEDICARE, SELFPAY ==
--- NOTE | 2024-12-17 08:23 | MHC.PC.OV ---
Vital Signs 12/17/24 08:29 12/17/24 08:45 Height 5 ft 10.5 in Weight 225 lb BMI 31.8 BP 158/82 H 150/80 H Blood Pressure Location Lt brachial Rt brachial Position Sitting Sitting Pulse 65 Pulse Source Pulse Oximeter Temp 98.2 F Temp Source Temporal Artery Scan Pulse Oximetry (%) 97 Oxygen Delivery Method Room Air Intake Visit Reasons: Follow-up?hypertension?with?white?coat?syndrome Intake Note: Mohamud presents in the office today for a follow up for hypertension. Allergies morphine [MORPHINE] Allergy (Severe, Verified 12/17/24 08:26) CONFUSION oxycodone [OXYCODONE] Allergy (Severe, Verified 12/17/24 08:26) CONFUSION hydrochlorothiazide [Hydrochlorothiazide] Allergy (Mild, Verified 12/17/24 08:26) MUSCLE CRAMPS, leg cramps lisinopril [From Zestril] Allergy (Mild, Verified 12/17/24 08:26) COUGH amlodipine [From Norvasc] Adverse Reaction (Mild, Verified 12/17/24 08:26) DIZZINESS irbesartan [From Avapro] Adverse Reaction (Mild, Verified 12/17/24 08:26) DIZZINESS Medication List - Last Reconciled 12/17/24 by Yfn Tran MD aspirin 81 mg PO DAILY cranberry extract 405 mg PO DAILY diclofenac sodium 1% 2 grams topical QID finasteride 5 mg PO DAILY losartan 25 mg PO DAILY PRN 30 days metoprolol succinate ER 150 mg (1.5 x 100 mg) PO BID 90 days pantoprazole 40 mg PO DAILY simvastatin 80 mg PO BEDTIME tamsulosin 0.8 mg (2 x 0.4 mg) PO DAILY Tobacco use date assessed: 12/17/24 Fall risk assessment: 1 Fall in past year Last assessed Fall Risk: 12/17/24 Dental Screening Dental Screen Date: 12/17/24 Did you have a dental visit in the last 12 months?: Yes Did you have a dental problem in the last 6 months where you did not have access to dental care?: No Was dental information given to patient?: Patient has dentist HPI Follow-up?hypertension?with?white?coat?syndrome HPI Details 84 y/o male presents to f/u HTN with whitecoat syndrome. BP today 150/80, 65p. He is on metoprolol 150mg b.i.d, losartan 25mg. BP at home 118/55, 115/55. 116/66, 116/66. Pt notes he has been following up with Dr. Mills and knees have been improving. HPI Comments History of Present Illness Details Documentation assistance for Yfn Tran MD, was provided by Lincoln Pedro,? Trim Mounter on 12/17/2024 at 8:47 AM EST. I, Dr. Tran, have read, observed, and verified documentation. ?? [facility] Medical History UTI (urinary tract infection) High cholesterol CAD (coronary artery disease) BPH (benign prostatic hyperplasia) Surgical History S/P triple vessel bypass Social History (Updated 12/17/24 @ 08:28 by Corry Lee MA) Household Members: Spouse Housing: House Do you presently have visiting nurse or other home services: No Alcohol intake: current Alcohol intake frequency: holidays/special occasions only Patient Tobacco Use Status: Never used Tobacco e-Cigarette/Vaping Use: Never Used Second Hand Smoke Exposure: No Use of substances other than those prescribed or required for medical reasons: No service: No Current occupational status: retired and disabled Current occupational exposures/hazards: No Cognitive needs: No Hearing needs: No Vision needs: Yes (Glasses) Questionnaire Thrive Questionnaire Date Thrive assessed: 12/17/24 I am a: Patient What is your living situation today?: I have a steady place to live Within the past 12 months, did the food you bought not last and you didn't have the money to get more?: Never true Within the past 12 months, did you worry whether your food would run out before you got money to buy more?: Never true Do you have trouble paying for medicines?: No Do you have trouble getting transportation to medical appointments?: No Do you have trouble paying your heating and electricity bill?: No Do you have trouble taking care of your child, family member or friend?: No Do you have trouble with day-to-day activities such as bathing, preparing meals, shopping, managing finances, etc.?: No Are you currently unemployed and looking for a job?: No Are you interested in more education?: No Please select the resources that you would like help with: None Currently or been in a relationship where the following occur: No concerns reported THRIVE Score: 0 AUDIT C Alcohol Use Questionnaire (AUDIT-C) 1. How often do you have a drink containing alcohol?: Monthly or less 2. How many drinks containing alcohol do you have on a typical day when you are drinking?: 1 or 2 Total Score: 1 Score Reviewed/Action Taken: No SHAYLEE-7 AMB Questionnaire SHAYLEE-7 Date SHAYLEE - 7 assessed: 11/17/23 Source: Developed by Drs. Dewayne Eden, Drea Delgado, Pierce Cao and colleagues, with an educational pj from [employer]. Review of Systems Const Denies chills, Denies fatigue, Denies fever(s), Denies headache(s) and Denies weakness ENT Denies dizziness and Denies headache(s) Card Denies dyspnea Resp Denies cough, Denies dyspnea, Denies wheezing and Denies other (shortness of breath) Musc Denies numbness and Denies tingling Neuro Denies dizziness, Denies headache(s), Denies numbness, Denies tingling and Denies weakness Psych Denies anxiety and Denies depression Endo Denies fatigue Aller/Immun Denies wheezing Physical exam (Primary Care) Vital Signs: Last Vital Signs Temp 98.2 F 12/17/24 08:29 Pulse 65 12/17/24 08:29 BP 150/80 H 12/17/24 08:45 Pulse Ox 97 12/17/24 08:29 Oxygen Delivery Method Room Air 12/17/24 08:29 BMI result Body Mass Index 31.8 Tobacco/Smoking Status: Tobacco use Status Tobacco use date assessed 12/17/24 12/17/24 08:35 Patient Tobacco Use Status Never used Tobacco 12/17/24 08:28 e-Cigarette/Vaping Use Never Used 12/17/24 08:28 Thrive Assessment: Date of Thrive Assessment Date Thrive assessed 12/17/24 12/17/24 08:35 Currently or been in a relationship where the following occur: No concerns reported Const General: well developed; No acute distress Nutritional Appearance: well nourished Orientation/consciousness: patient oriented x3 HENMT Head: Yes normocephalic and Yes atraumatic Eyes General: appearance normal, both eyes and all related structures Pupils: Equal, round and reactive pupils present EOM: EOMs intact bilaterally Resp Effort & Inspection: normal respiratory effort Neuro General: patient oriented x3 and gait normal Cranial nerves: Yes Equal, round and reactive pupils present Psych Affect: normal affect Coding Level of Care Code Est Pt Level 3 (14551) Diagnoses White coat syndrome with diagnosis of hypertension I10 Osteoarthritis of knees, bilateral M17.0 Assessment & Plan Assessment & Plan (1) White coat syndrome with diagnosis of hypertension: Code(s): I10 - Essential (primary) hypertension Category: Medical Plan: Blood?pressures?at?home?showed?good?control.??Goal?is?less?than?140/90 Continue?metoprolol?and?losartan (2) Osteoarthritis of knees, bilateral: Code(s): M17.0 - Bilateral primary osteoarthritis of knee Category: Medical Plan: Pain?is?improving?after?injections?with?Dr. Mills Still?walking?with?a?cane?balance Offered?physical?therapy?but?he?declines?for?now. Advised?he?can?use?cycle?at?home?to?increase?leg?strength
--- OUTSIDE RECORDS SUMMARY | 2024-12-17 08:25 | XMS_ITS | Patient Health Record ---
Author Organization [facility] Address [address] [place] [address] Care Team Providers Care Supercharger Mechanic Name Role Phone Yfn Tran Primary Care Provider UnavailAlan Friedman Jr Unavailable Allergies Allergen (clinical drug ingredient) Drug/Non Drug Allergy documented on EMR Reaction Allergy Type Onset Date Status naproxen Naprosyn Unknown Drug Allergy Active nitrofurantoin Macrodantin Unknown Drug Allergy Active hydrochlorothiazide Hydrochlorothiazide Unknown Drug Aller gy Active irbesartan Avapro Unknown Drug Allergy Active Aleve Unknown Drug Allergy Active lisinopril Zestril Unknown Drug Allergy Active amlodipine Norvasc Unknown Drug Allergy Active Reason For Referral [...] Problem Status W/U Status Risk Notes Problem 083246971 Colon cancer screening (Z12.11) Active confirmed Problem 220193222 Gastroesophageal reflux disease without esophagitis (K21.9) Active confirmed Problem 51545124 Hypertension, unspecified type (I10) Active confirmed Vital Signs Temperature 98.0 degrees Fahrenheit 01/17/2024 Blood pressure diastolic 00 mm Hg 01/17/2024 Height 70 in 01/17/2024 Blood pressure systolic 000 mm Hg 01/17/2024 Weight 240 lbs 01/17/2024 BMI 34.43 kg/m2 01/17/2024 Encounters Encounter Location Date Provider Diagnosis [facility] [address] [place] [address] 01/17/2024 Alan Kenney Jr Gastroesophageal reflux disease [...] Plan Of Treatment Next Appt Details Provider Name:Alan castanon Jr, 01/20/2025 09:20:00 AM, [address], [address], [place], [address], Insurance Providers Payer Name Payer Address Payer Phone Subscriber Number Group Number Insured Name Patient Relationship to Insured Coverage Start Date Coverage End Date MEDICARE OF [place] [address] [place] [address] [id number] ALIREZA GAYTAN Self - patient is the insured MED[employer] ATTN CLAIMS [address] [place] [address] [id number] ALIREZA GAYTAN Self - patient is the insured Medical (General) History Medical History History ICD Code Hyperlipidemia hypertension BPH Gastroesophageal reflux dise ase, EGD 08/18, and no H. pylori or Gaytan's esophagus Coronary artery disease, [place] 06/14 Chronic kidney disease stage III Colonoscopy 08/18, cecal tubular adenoma, followup optional based on age Surgical History Surgery Date(Month/Year) hemorrhoidectomy CABG x3 2007 cholecystectomy cystoscopy 12/2013
--- OUTSIDE RECORDS SUMMARY | 2024-12-17 08:25 | XMS_ITS | Encounter Summary ---
Author Organization [facility] Address [address] [facility] [address] [place] [address] Phone Care Team Providers Care Manager Transit Name Role Phone Yfn Tran MD Primary Care Provider [phone] Encounter Details Date Type Department Care Team (Late st Contact Info) Description 12/16/2020 Orders Only [facility] [address] [place] [address] ProviderCrystal MD [address] [place] [address] Social History Tobacco Use Types Packs/Day [...] Care Team (Late st Contact Info) Description 12/03/2025 2:15 PM EDT Office Visit [facility] [address] [place] [phone] Lukas Morales MD [address] [facility] [address] [place] [address] documented as of this encounter Procedures Procedure Name Priority Date/Time Associated Diagnosis Comments EXT RESULT ENTRY Routine 12/16/2020 documented in this encounter Results * EXT RESULT ENTRY (12/16/2020) us Historical Provider LAB BLOOD ORDERABLES Conchita l Result documented in this encounter Visit Diagnoses Not on filedocumented in this encounter Care Teams Manager Transit Relationship Specialty Start Date End Date Yfn Tran MD [address] [address] PCP - General Family Medicine 11/16/22 documented as of this encounter
--- OUTSIDE RECORDS SUMMARY | 2024-12-17 08:25 | XMS_ITS ---
Author Organization [facility] Address [address] [place] [address] Care Team Providers Care Oracle Bpm Developer Name Role Phone Yfn Tran Primary Care [...] 01/17/2024 Encounters Encounter Location Date Provider Diagnosis [facility] [address] [facility] [address] [place] [address] 01/17/2024 Alan Kenney Jr Gastroesophageal reflux disease [...] Name:Alan castanon Jr, 01/20/2025 09:20:00 AM, [address], [address], [place], [address], Progress Notes * ALIREZA GAYTAN LDOB: 0 (83 yo M)Acc No.[id number]:01/17/2024 Progress Notes Patient:?ALIREZA GAYTAN Account Number: Provider:?Alan Kenney MD :1940???Age:83 Y???Sex:Male Seun e:01/17/2024 Address:[address] [place] [address] [address], [place] Pcp:Yfn Tran Subjective: * Chief Complaints: * [...] pylori or Gaytan's esophagus, Coronary artery disease, [place] 06/14, Chronic kidney disease stage III, Colonoscopy [...] MD Date:?0 01/17/2024 Generated for Jarrod stephens/Bubba/Lela on:?12/17/2024 08:24 AM EDT History and Physical Notes * [...]
--- OUTSIDE RECORDS SUMMARY | 2024-12-17 08:25 | XMS_ITS | Continuity of Care Document ---
Author Organization [facility] Address [address] [place] [id number]- Care Team Providers Care Senior Integration Developer Name Role Phone Yfn Tran MD Primary Care Physician [phone] Encounter [facility] [place] Date(s): 11/14/24 - 12/14/24 [facility] [address] [place] [address]- Attending Physician: Cara Sevilla Admitting Physician: Cara Sevilla Referring Physician: AdmtrCara Encounter Type: Triage Allergies, Adverse Reactions, Alerts Substance Criticality Severity Reaction Reaction Severity Status hydrochlorothiazide muscle cramps Active Zestril Active amlodipine 1 leg cramps Active lisinopril cough Active Avapro dizziness Active Macrodantin Active 1avapro Immunizations Given and Recorded Vaccine Date Status Refusal Reason FluLaval (oldterm) 1 06/15/09 Given 1Admin Note: CDC info given to pt. Medications aspirin 81 mg oral tablet 1 tablet = 81 mg, By Mouth, Daily, # 30 tablet, 11 Refills, Maintenance, 07/27/11 8:34:42 AM EST, Tablet Start Date: 07/27/11 Stop Date: 07/21/12 Status: Ordered Quantity: 30.0 Unit: tablet Repeat number: 12 finasteride 5 mg oral tablet 1 tablet = 5 mg, By Mouth, Daily, # 30 tablet, 0 Refills, Maintenance, 11/09/23 10:23:00 AM EDT, Tablet, Partial fill upon patient request if the prescription is for a schedule II opioid drug. Start Date: 11/09/23 Status: Ordered Quantity: 30.0 Unit: tablet Repeat number: 1 Flomax 0.4 mg oral capsule 2 capsule = 0.8 mg, By Mouth, Daily, # 90 capsule, 0 Refills, Maintenance, 11/28/13 2:55:47 PM EDT, Capsule Start Date: 11/28/13 Status: Ordered Quantity: 90.0 Unit: capsule Repeat number: 1 losartan 25 mg oral tablet 25 mg, 1, tablet, By Mouth, Daily, PRN for high blood pressure, Refills 0, Maintenance, 11/14/24 10:08:00 AM EDT, Partial fill upon patient request if the prescription is for a schedule II opioid drug. Start Date: 11/14/24 Status: Ordered Repeat number: 1 Metoprolol Tartrate 100 mg oral tablet 1.5 tablet = 150 mg, By Mouth, 2 times a day, replaces previous rx of, # 90 tablet, 11 Refills, Maintenance, 10/29/12 9:40:00 AM EDT, [facility]/pharmacy #[id number] Start Date: 10/29/12 Stop Date: 10/24/13 Status: Ordered Quantity: 90.0 Unit: tablet Repeat number: 12 Multivitamin By Mouth, Daily, 0 Refills, Maintenance, 11/26/15 9:05:41 AM EDT Start Date: 11/26/15 Status: Ordered Repeat number: 1 nitroglycerin 0.4 mg sublingual tablet See Instructions, PRN Chest Pain, 0.4 mg Sublingual Every 5 minutes not to exceed 3 doses/15 min--if pain persists, seek medical attention, # 10 tablet, 0 Refills, Maintenance, 10/02/14 4:35:34 PM EST, Tablet, [facility]/pharmacy #[id number] Start Date: 10/02/14 Status: Ordered Quantity: 10.0 Unit: tablet Repeat number: 1 Probiotic Formula 1 capsule, By Mouth, Daily, 0 Refills, Maintenance, 11/27/14 9:24:11 AM EDT Start Date: 11/27/14 Status: Ordered Repeat number: 1 Protonix 40 mg oral delayed release tablet 1 tablet = 40 mg, By Mouth, Daily, # 30 tablet, 0 Refills, Maintenance, 10/02/14 12:32:26 AM EST, ECTablet Start Date: 10/02/14 Status: Ordered Quantity: 30.0 Unit: tablet Repeat number: 1 simvastatin 80 mg oral tablet 1 tablet, By Mouth, Daily at bedtime, # 90 tablet, 3 Refills, Maintenance, 11/14/24 10:18:00 AM EDT,[facility]/pharmacy #[id number], 178, cm, 11/14/24 10:09:00 EDT, Height Start Date: 11/14/24 Status: Ordered Quantity: 90.0 Unit: tablet Repeat number: 4 Problem List Condition Confirmation Course Effective Dates Status H ealth Status Informant Coronary artery disease Confirmed Active Hyperlipidemia Confirmed Active Hypertension Confirmed Active Obese class I Confirmed Active Social History Social History Type Response Smoking Status Former smoker; Tobac co user in household: No entered on: 11/27/14 Sex Male Sex Representation Male (finding) Laboratory * Event Display: Non Lab Results Authored Date: [id number] Note * Mikala Holman: PERFORM Event Display: Cardiac Rehab Note Authored Date: [id number] Patient Care team information Care Team Personnel Name: Yfn Tran MD Position: [facility] Outreach Member Role: PCP Address: [address] [place] [address] Telecom: Name: Conrad Rodriguez MD Position: [facility] Cardiology MD Member Role: Lifetime Consulting Physician Address: [address] [place] [id number] Telecom: Care Team Related Persons Name: SYED GAYTAN Insurance Providers Guarantor name: ALIREZA GAYTAN Health Plan Information #: 1 Payer: MEDICARE PART B OUTPT Member Number: NA Policy Number: NA Group Number: NA Health Plan Information #: 2 Payer: MEDEX Member Number: NA Policy Number: NA Group Number: NA
--- OUTSIDE RECORDS SUMMARY | 2024-12-17 08:25 | XMS_ITS | Clinical Summary ---
Author Organization [facility] Address [address] [place] [address] Phone Care Team Providers Care Trial Attorney Name Role Phone Yfn Tran MD Primary Care Provider [phone] Allergies Active Allergy Reactions Criticality Noted Date [...] each day in the evening 4 Active losartan (COZAAR) 25 MG tablet TAKE 1 TABLET BY MOUTH EVERY DAY NEEDED FOR SBP>140 MMHG FOR 30 DAYS 5 Active Active Problems Problem Noted Date Diagnosed Date Severe obesity 11/16/2022 Coronary arteriosclerosis 11/16/2021 Hyperlipidemia 11/16/2021 Chronic kidney disease 10/28/2020 Essential hypertension 10/27/2020 Encounters Date Type Department Care Team Description 12/04/2024 2:00 PM EDT Office Visit [facility] [address] [address] Lukas Morales MD Stage 3 chronic kidney disease, not otherwise specified (HCC) (Primary Dx); Essential hypertension from Last 3 Months Immunizations Immunization Administration Dates Next Due Influenza [...] Sign Reading Time Taken Comments Blood Pressure 174/65 12/04/2024 1:44 PM EDT Pulse 75 12/04/2024 1:44 PM EDT Temperature - - Respiratory Rate [...] Office Visit [facility] [address] [phone] Lukas Morales MD [address] [phone] Health Maintenance Due Date Last Done Comments Pneumococcal Vaccine: 50+ Ye ars (1 of 2 - PCV) 01/17/1959 Influenza Vaccine (Season Ended) 2025 06/15/20 09 Hepatitis B Vaccine Aged Out No longe r eligible based on patient's age to complete this topic Insurance [facility] Medicare [facility] Medicare Care Teams Trial Attorney Relationship Specialty Start Date End Date Yfn Tran MD [address] [address] PCP - General Family Medicine 11/16/22
[2024-12-17 08:29] VITALS: BP 158/82; PULSE 65; TEMP 36.8; O2SAT 97; BMI 31.8
[2024-12-17 08:45] VITALS: BP 150/80
== END 2024-12-17 08:59 | disposition home or self-care (01) ==
LOC: HO.HMCFM 08:16
PROVIDERS: PCP Family Medicine; Visit Provider Family Medicine
DX: I10 Essential (primary) hypertension (principal); M17.0 Bilateral primary osteoarthritis of knee

== ENCOUNTER → 2024-12-17 08:16 | Outpatient (BNVA) | payer MEDICARE, SELFPAY | PROVIDERS: PCP Family Medicine; Visit Provider Family Medicine | DX: I10 Essential (primary) hypertension (principal); M17.0 Bilateral primary osteoarthritis of knee | CPT/HCPCS: 99212 ==

== ENCOUNTER 2025-03-04 09:09 | Outpatient (AMB) | payer MEDICARE, SELFPAY ==
--- NOTE | 2025-03-04 09:12 | A.OFFVIS_ITS ---
Vital Signs 03/04/25 09:19 Height 5 ft 10 in Weight 215 lb BMI 30.8 Intake Visit Reasons: Bilateral knee pain Intake Note: Mohamud is an 85 year old male who presents with complaints of bilateral knee pains. He describes his pains as sharp in nature. He has had cortisone injections in the past which gave him no relief. He wishes to hold off on surgery for as long as possible. He has failed the last 3 months of conservative treatment. He has tried Tylenol, anti-inflammatory medicines and a home exercise program which gave him minimal relief. Allergies morphine (MORPHINE) Allergy (Severe, Verified 03/04/25 09:18) CONFUSION oxycodone (OXYCODONE) Allergy (Severe, Verified 03/04/25 09:18) CONFUSION hydrochlorothiazide (Hydrochlorothiazide) Allergy (Mild, Verified 03/04/25 09:18) MUSCLE CRAMPS, leg cramps lisinopril (From Zestril) Allergy (Mild, Verified 03/04/25 09:18) COUGH amlodipine (From Norvasc) Adverse Reaction (Mild, Verified 03/04/25 09:18) DIZZINESS irbesartan (From Avapro) Adverse Reaction (Mild, Verified 03/04/25 09:18) DIZZINESS Medication List - Last Reconciled 03/04/25 by Raad Mills MD aspirin 81 mg PO DAILY cranberry extract 405 mg PO DAILY diclofenac sodium 1% 2 grams topical QID finasteride 5 mg PO DAILY losartan 25 mg PO DAILY PRN 30 days metoprolol succinate ER 150 mg (1.5 x 100 mg) PO BID 90 days pantoprazole 40 mg PO DAILY simvastatin 80 mg PO BEDTIME tamsulosin 0.8 mg (2 x 0.4 mg) PO DAILY COUNTS INCLUDE 234 BEDS AT [facility] Medical History UTI (urinary tract infection) High cholesterol CAD (coronary artery disease) BPH (benign prostatic hyperplasia) Surgical History S/P triple vessel bypass Social History (Updated 12/17/24 @ 08:28 by Corry Lee MA) Household Members: Spouse Housing: House Do you presently have visiting nurse or other home services: No Alcohol intake: current Alcohol intake frequency: holidays/special occasions only Patient Tobacco Use Status: Never used Tobacco e-Cigarette/Vaping Use: Never Used Second Hand Smoke Exposure: No service: No Current occupational status: retired and disabled Current occupational exposures/hazards: No Cognitive needs: No Hearing needs: No Vision needs: Yes (Glasses) Physical Exam Vital Signs: BMI result Body Mass Index 30.8 Const Other: Well-nourished well-developed very friendly male awake alert and oriented x3 in no acute distress Extrem Other: Bilateral knee examination shows minimal effusions, palpable crepitus with range of motion, pain with range of motion, no instability Assessment & Plan Assessment & Plan (1) Pain in both knees: Code(s): M25.561 - Pain in right knee; M25.562 - Pain in left knee (2) Osteoarthritis of left knee: Code(s): M17.12 - Unilateral primary osteoarthritis, left knee Category: Medical (3) Osteoarthritis of right knee: Code(s): M17.11 - Unilateral primary osteoarthritis, right knee Category: Medical Plan Mr. Blakely presents with bilateral knee pains due to osteoarthritis. I had a lengthy discussion with the patient regarding the treatment options. He wishes to hold off on surgery if at all possible. I agree with this plan. I will see if the patient's insurance company will cover another Durolane viscosupplementation injection for both of his knees. I will see him back once the injections are available. Feel free to call me at any time should questions regarding his orthopedic management arise. I spent 20 minutes in reviewing the patient's records and imaging studies, seeing the patient and documenting in the medical record. Coding Level of Care Code Est Pt Level 3 (72575) Complex EM visit Add On G2211 Diagnoses Pain in both knees M25.561; M25.562 Osteoarthritis of left knee M17.12 Osteoarthritis of right knee M17.11
[2025-03-04 09:19] VITALS: BMI 30.8
--- OUTSIDE RECORDS SUMMARY | 2025-03-04 09:34 | XMS_ITS | Patient Health Record ---
Author Organization [facility] Address [address] [place] [id number] Care Team Providers Care Family Psychologist Name Role Phone Yfn Tran Primary Care Provider UnavailAlan Friedman Jr Unavailable [phone] Allergies Allergen (clinical drug ingredient) Drug/Non Drug Allergy documented on EMR Reaction Allergy Type Onset Date Status lisinopril Zestril Unknown Drug Allergy Active amlodipine Norvasc Unknown Drug Allergy Active naproxen Naprosyn Unknown Drug Allergy Active nitrofurantoin Macrodantin Unknown Drug Allergy Active hydrochlorothiazide Hydrochlorothiazide Unknown Drug Aller gy Active irbesartan Avapro Unknown Drug Allergy Active Aleve Unknown Drug Allergy Active Reason For Referral No Information Medications Medication SIG (Take, Route, Frequency, Duration) Notes Start Date End Date Status Tamsulosin HCl 0.4 MG 1 capsule 30 minut es after the same meal each day Orally Once a day Active Metoprolol Succinate ER 100 MG Oral for 90 Active Centrum Silver 50+Men - 1 Orally QD Active Probiotic 250 MG 1 capsule Orally onc e a day Active Metoprolol Tartrate 100 MG 1 1/2 tablet with food Orally Twice a day Active Finasteride 5 MG Oral for 90 A ctive Simvastatin 80 MG 1 tablet in the even ing Orally Once a day Active Pantoprazole Sodium 40 MG TAKE 1 TABLET BY MOUTH EVERY DAY for 90 Active Aspirin 81 MG 1 tablet Orally Once a day Active Immunizations Vaccine Route Administration Date Status Comme nts Flu vaccine no Preserv 3 and > Unknown 04/11/2017 Admin istered Influenza Unknown 06/07/2019 Administered Influenza Unknown 06/28/2022 Administered Influenza Unknown 06/20/2023 Administered Influenza Unknown 05/21/2024 Administered Social History Tobacco Use: Social History [...] Problem Status W/U Status Risk Notes Problem 538239158 Colon cancer screening (Z12.11) Active confirmed Problem 334216938 Gastroesophageal reflux disease without esophagitis (K21.9) Active confirmed Problem 99738605 Hypertension, unspecified type (I10) Active confirmed Vital Signs Temperature 97.1 degrees Fahrenheit 01/20/2025 Blood pressure diastolic 01 mm Hg 01/20/2025 Height 70 in 01/20/2025 Blood pressure systolic 001 mm Hg 01/20/2025 Weight 222 lbs 01/20/2025 BMI 31.85 kg/m2 01/20/2025 Encounters Encounter Location Date Provider Diagnosis [facility] [address] [place] [address] 01/20/2025 Alan Kenney Jr Gastroesophageal reflux disease without esophagitis K21.9 and Colon cancer screening Z12.11 Assessments Encounter Date Diagnosis (ICD Code) Assessment Notes Treatment Notes Treatment Clinical Notes Section Notes 01/20/2025 Colon cancer screening (ICD-10 - Z12.11) My impression is that he is doing well. He will continue his present regimen. Reflux symptoms are under good control. Follow-up in 1 year. 01/20/2025 Gastroesophageal reflux disease without esophagitis (ICD-10 - K21.9) My impression is that he is doing well. He will continue his present regimen. Reflux symptoms are under good control. Follow-up in 1 year. Plan Of Treatment Next Appt Details Provider Name:Alan castanon Jr, 01/21/2026 09:40:00 AM, [address], [address], [place], [address], Insurance Providers Payer Name Payer Address Payer Phone Subscriber Number Group Number Insured Name Patient Relationship to Insured Coverage Start Date Coverage End Date MEDICARE OF [place] [address] [place] [address] [id number] ALIREZA GAYTAN Self - patient is the insured MEDEX ATTN CLAIMS [address] [place] [address] [phone] [id number] ALIREZA GAYTAN Self - patient is the insured Medical (General) History Medical History History ICD Code Hyperlipidemia hypertension BPH Gastroesophageal reflux dise ase, EGD 08/18, and no H. pylori or Gaytan's esophagus Coronary artery disease, SD 06/14 Chronic kidney disease stage III Colonoscopy 08/18, cecal tubular adenoma, followup optional based on age Surgical History Surgery Date(Month/Year) cystoscopy 12/2013 cholecystectomy CABG x3 2007 hemorrhoidectomy Hospitalization History Reason Date(Month/Year) fall
--- OUTSIDE RECORDS SUMMARY | 2025-03-04 09:34 | XMS_ITS | Clinical Summary ---
Author Organization [facility] Address [address] [place] [address] Phone Care Team Providers Care Professor Of Violin Name Role Phone Yfn Tran MD Primary Care Provider [phone] Allergies Active Allergy Reactions Criticality Noted Date [...] Office Visit [facility] [address] [address] Lukas Morales MD Stage 3 [...] Office Visit [facility] [address] [phone] Lukas Morales MD [address] [phone] Health Maintenance Due Date Last Done Comments Pneumococcal Vaccine: 50+ Ye ars (1 of 2 - PCV) 01/17/1959 Influenza Vaccine (#1) 2025 06/15/2009 Hepatitis B Vaccine Aged Out No longe r eligible based on patient's age to complete this topic Insurance [facility] Medicare [facility] Medicare Care Teams Professor Of Violin Relationship Specialty Start Date End Date Yfn Tran MD [address] [id number] PCP - General Family Medicine 11/16/22
== END 2025-03-04 09:43 | disposition home or self-care (01) ==
LOC: HO.HOS 09:09
PROVIDERS: PCP Family Medicine; Visit Provider Orthopaedic Surgery
DX: M17.0 Bilateral primary osteoarthritis of knee (principal)
CPT/HCPCS: 99213; G2211

== ENCOUNTER → 2025-03-04 09:09 | Outpatient (BNVA) | payer MEDICARE, SELFPAY | PROVIDERS: PCP Family Medicine; Visit Provider Orthopaedic Surgery | DX: M25.561 Pain in right knee (principal); M25.562 Pain in left knee; M17.0 Bilateral primary osteoarthritis of knee | CPT/HCPCS: 99212 ==

== ENCOUNTER 2025-04-11 08:17 | Outpatient (AMB) | payer MEDICARE, SELFPAY ==
--- NOTE | 2025-04-11 08:22 | A.OFFPC_ITS ---
Vital Signs 04/11/25 08:30 Height 5 ft 10 in Weight 221 lb 2 oz BMI 31.7 BP 138/76 Blood Pressure Location Rt brachial Position Sitting Respiration 14 Pulse 71 Pulse Source Pulse Oximeter Temp 98.4 F Temp Source Temporal Artery Scan Pulse Oximetry (%) 96 Oxygen Delivery Method Room Air Intake Visit Reasons: f/u HTN with whitecoat syndrome Intake Note: Mohamud presents in the office for hypertension. Allergies morphine (MORPHINE) Allergy (Severe, Verified 04/11/25 08:29) CONFUSION oxycodone (OXYCODONE) Allergy (Severe, Verified 04/11/25 08:29) CONFUSION hydrochlorothiazide (Hydrochlorothiazide) Allergy (Mild, Verified 04/11/25 08:29) MUSCLE CRAMPS, leg cramps lisinopril (From Zestril) Allergy (Mild, Verified 04/11/25 08:29) COUGH amlodipine (From Norvasc) Adverse Reaction (Mild, Verified 04/11/25 08:29) DIZZINESS irbesartan (From Avapro) Adverse Reaction (Mild, Verified 04/11/25 08:29) DIZZINESS Tobacco use date assessed: 04/11/25 Fall risk assessment: No Falls in past year Last assessed Fall Risk: 04/11/25 Dental Screening Dental Screen Date: 04/11/25 Did you have a dental visit in the last 12 months?: Yes Did you have a dental problem in the last 6 months where you did not have access to dental care?: No Was dental information given to patient?: Patient has dentist HPI f/u HTN with whitecoat syndrome HPI Details 85 y/o male presents to f/u HTN. Hx of whitecoat syndrome. Blood pressure today 138/76, 71p. He is on losartan 25mg, metoprolol l150mg b.i.d. Has been following up with orthopedics for his knees. Reports ongoing unsteady gait and does use a cane. HPI Comments History of Present Illness Details Documentation assistance for Yfn Tran MD, was provided by Lincoln Pedro,? Jewel Hole Driller on 04/11/2025 at 8:54 AM EST. I, Dr. Tran, have read, observed, and verified documentation. ?? [facility] Medical History UTI (urinary tract infection) High cholesterol CAD (coronary artery disease) BPH (benign prostatic hyperplasia) Surgical History S/P triple vessel bypass Social History (Updated 04/11/25 @ 08:30 by Corry Lee MA) Household Members: Spouse Housing: House Do you presently have visiting nurse or other home services: No Alcohol intake: current Alcohol intake frequency: holidays/special occasions only Patient Tobacco Use Status: Never used Tobacco e-Cigarette/Vaping Use: Never Used Second Hand Smoke Exposure: No Use of substances other than those prescribed or required for medical reasons: No service: No Current occupational status: retired and disabled Current occupational exposures/hazards: No Cognitive needs: No Hearing needs: No Vision needs: Yes (Glasses) Questionnaire Thrive Questionnaire Date Thrive assessed: 08/14/24 I am a: Patient What is your living situation today?: I have a steady place to live Within the past 12 months, did the food you bought not last and you didn't have the money to get more?: Never true Within the past 12 months, did you worry whether your food would run out before you got money to buy more?: Never true Do you have trouble paying for medicines?: No Do you have trouble getting transportation to medical appointments?: No Do you have trouble paying your heating and electricity bill?: No Do you have trouble taking care of your child, family member or friend?: No Do you have trouble with day-to-day activities such as bathing, preparing meals, shopping, managing finances, etc.?: No Are you currently unemployed and looking for a job?: No Are you interested in more education?: No Please select the resources that you would like help with: None Currently or been in a relationship where the following occur: No concerns reported THRIVE Score: 0 SHAYLEE-7 AMB Questionnaire SHAYLEE-7 Date SHAYLEE - 7 assessed: 11/17/23 Source: Developed by Drs. Dewayne Eden, Drea Delgado, Pierce Cao and colleagues, with an educational pj from [employer] Review of Systems Const Denies chills, Denies fatigue, Denies fever(s), Denies headache(s) and Denies weakness ENT Denies dizziness and Denies headache(s) Card Denies dyspnea Resp Denies cough, Denies dyspnea, Denies wheezing and Denies other (shortness of breath) Musc Denies numbness and Denies tingling Neuro Denies dizziness, Denies headache(s), Denies numbness, Denies tingling and Denies weakness Psych Denies anxiety and Denies depression Endo Denies fatigue Aller/Immun Denies wheezing Physical exam (Primary Care) Vital Signs: Last Vital Signs Temp 98.4 F 04/11/25 08:30 Pulse 71 04/11/25 08:30 Resp 14 04/11/25 08:30 BP 138/76 04/11/25 08:30 Pulse Ox 96 04/11/25 08:30 Oxygen Delivery Method Room Air 04/11/25 08:30 BMI result Body Mass Index 31.7 Tobacco/Smoking Status: Tobacco use Status Tobacco use date assessed 04/11/25 04/11/25 08:33 Patient Tobacco Use Status Never used Tobacco 04/11/25 08:30 e-Cigarette/Vaping Use Never Used 04/11/25 08:30 Thrive Assessment: Date of Thrive Assessment Date Thrive assessed 08/14/24 04/11/25 08:23 Currently or been in a relationship where the following occur: No concerns reported Const General: well developed; No acute distress Nutritional Appearance: well nourished Orientation/consciousness: patient oriented x3 HENMT Head: Yes normocephalic and Yes atraumatic Eyes General: appearance normal, both eyes and all related structures Pupils: Equal, round and reactive pupils present EOM: EOMs intact bilaterally Resp Effort & Inspection: normal respiratory effort Neuro General: patient oriented x3 and No gait normal Cranial nerves: Yes Equal, round and reactive pupils present Gait exam (Neuro): Assisted gait required (cane) Psych Affect: normal affect Coding Level of Care Code Est Pt Level 4 (76326) Diagnoses White coat syndrome with diagnosis of hypertension I10 CAD (coronary artery disease) I25.10 Osteoarthritis of knees, bilateral M17.0 Urinary retention R33.9 Unsteady gait R26.81 Assessment & Plan Assessment & Plan (1) White coat syndrome with diagnosis of hypertension: Code(s): I10 - Essential (primary) hypertension Category: Medical Plan: Blood pressure in office today is 138/76. Fairly well Controlled. Goal is less than 130/80 Blood pressures at home: 126/78 this morning. And patient says maximum systolic blood pressure is 130 and averaging in the 120s. Good control at home. Continue current medication (2) CAD (coronary artery disease): Code(s): I25.10 - Atherosclerotic heart disease of zuni coronary artery without angina pectoris Category: Medical Plan: Stable (3) Osteoarthritis of knees, bilateral: Code(s): M17.0 - Bilateral primary osteoarthritis of knee Category: Medical Plan: Pain is much improved with gel injections with ortho He is walking without pain. Still has unsteady gait and using a cane Offered physical therapy and he will think about this. Follow-up with Dr. Mills (4) Urinary retention: Code(s): R33.9 - Retention of urine, unspecified Category: Medical Plan: Followed by [facility] Patient says residual is improving from around 300-100 cc Now followed by [facility] annually Improved and stable (5) Unsteady gait: Code(s): R26.81 - Unsteadiness on feet Category: Medical Plan: As above, encouraged using a cane. Offered physical therapy and he will think about this Continue walking Orders: Orders LDL Cholesterol Direct Today E78.5 - Hyperlipidemia, unspecified Lipid Panel Today Z00.00 - Encounter for general adult medical examination without abnormal findings Microalbumin, Random (w Creat) Today I10 - Essential (primary) hypertension Complete Blood Count Auto Diff Today Z00.00 - Encounter for general adult medical examination without abnormal findings Comprehensive [place]. Panel Fast Today Z00.00 - Encounter for general adult medical examination without abnormal findings TSH reflex Free T4 Today Z00.00 - Encounter for general adult medical examination without abnormal findings UA CC w/rflx Micro + Cult Today Z00.00 - Encounter for general adult medical examination without abnormal findings
[2025-04-11 08:30] VITALS: BP 138/76; PULSE 71; RESP 14; TEMP 36.9; O2SAT 96; BMI 31.7
--- OUTSIDE RECORDS SUMMARY | 2025-04-11 08:41 | XMS_ITS | Patient Health Record ---
Author Organization [facility] Address [address] [place] [id number] Care Team Providers Care Foster Care Worker Name Role Phone Yfn Tran Primary Care [...] Problem Status W/U Status Risk Notes Problem [id number] Colon cancer screening (Z12.11) Active confirmed Problem 642931803 Gastroesophageal reflux disease without esophagitis (K21.9) Active confirmed Problem 29323471 Hypertension, unspecified type (I10) Active confirmed Vital Signs Temperature 97.1 degrees Fahrenheit 01/20/2025 Blood pressure diastolic 01 mm Hg 01/20/2025 Height 70 in 01/20/2025 Blood pressure systolic 001 mm Hg 01/20/2025 Weight 222 lbs 01/20/2025 BMI 31.85 kg/m2 01/20/2025 Encounters Encounter Location Date Provider Diagnosis [facility] [address] [place] [address] 01/20/2025 Alan Kenney Jr Gastroesophageal reflux disease [...] Name:Alan castanon Jr, 01/21/2026 09:40:00 AM, [address], [address], [place], [address], Insurance Providers Payer Name Payer Address Payer Phone Subscriber Number Group Number Insured Name Patient Relationship to Insured Coverage Start Date Coverage End Date MEDICARE OF [place] [address] [place] [id number] [id number] ALIREZA GAYTAN Self - patient is the insured [employer] ATT[employer] CLAIMS [address] [place] [address] [phone] [id number] ALIREZA GAYTAN Self - patient is the insured Medical (General) History Medical History History ICD Code Hyperlipidemia hypertension BPH Gastroesophageal reflux dise ase, EGD 08/18, and no H. pylori or Gaytan's esophagus Coronary artery disease, [place] 06/14 Chronic kidney disease stage III Colonoscopy 08/18, cecal tubular adenoma, followup optional based on age Surgical History Surgery Date(Month/Year) cystoscopy 12/2013 cholecystectomy CABG x3 2007 hemorrhoidectomy Hospitalization History Reason Date(Month/Year) fall
--- OUTSIDE RECORDS SUMMARY | 2025-04-11 08:41 | XMS_ITS | Clinical Summary ---
Author Organization [facility] Address [address] [place] [address] Phone Care Team Providers Care Forge Press Operator Name Role Phone Yfn Tran MD Primary Care Provider [phone] Allergies Active Allergy Reactions Criticality Noted Date [...] Visit [facility] [address] [place] [address] Lukas Morales MD [address] [address] Health Maintenance Due Date Last Done Comments Pneumococcal Vaccine: 50+ Ye ars (1 of 2 - PCV) 01/17/1959 Influenza Vaccine (#1) 2025 06/15/2009 Hepatitis B Vaccine Aged Out No longe r eligible based on patient's age to complete this topic Insurance [facility] Medicare [facility] Medicare Care Teams Forge Press Operator Relationship Specialty Start Date End Date Yfn Tran MD [address] [address] PCP - General Family Medicine 11/16/22
--- OUTSIDE RECORDS SUMMARY | 2025-04-11 08:41 | XMS_ITS | Encounter Summary ---
Author Organization [facility] Address [address] [place] [address] Phone Care Team Providers Care Wellness Trainer Name Role Phone Yfn Tran MD Primary Care Provider Encounter Details Date Type Department Care Team (Late st Contact Info) Description 12/16/2020 Orders Only [facility] [address] [place] [address] ProviderCrystal MD Social History Tobacco Use Types Packs/Day Years [...] Office Visit [facility] [address] [place] [id number] Lukas Morales MD [address] [facility] [address] [place] [address] documented as of this encounter Procedures Procedure Name Priority Date/Time Associated Diagnosis Comments EXT RESULT ENTRY Routine 12/16/2020 documented in this encounter Results * EXT RESULT ENTRY (12/16/2020) us Historical Provider LAB BLOOD ORDERABLES Conchita l Result documented in this encounter Visit Diagnoses Not on filedocumented in this encounter Care Teams Wellness Trainer Relationship Specialty Start Date End Date Yfn Tran MD [address] [address] PCP - General Family Medicine 11/16/22 documented as of this encounter
== END 2025-04-11 09:17 | disposition home or self-care (01) ==
LOC: HO.HMCFM 08:18
PROVIDERS: PCP Family Medicine; Visit Provider Family Medicine
DX: I10 Essential (primary) hypertension (principal); I25.10 Atherosclerotic heart disease of native coronary artery without angina pectoris; M17.0 Bilateral primary osteoarthritis of knee; R33.9 Retention of urine, unspecified; R26.81 Unsteadiness on feet

== ENCOUNTER → 2025-04-11 08:17 | Outpatient (BNVA) | payer MEDICARE, SELFPAY | PROVIDERS: PCP Family Medicine; Visit Provider Family Medicine | DX: I10 Essential (primary) hypertension (principal); I25.10 Atherosclerotic heart disease of native coronary artery without angina pectoris; M17.0 Bilateral primary osteoarthritis of knee; R33.9 Retention of urine, unspecified; R26.81 Unsteadiness on feet; E78.5 Hyperlipidemia, unspecified | CPT/HCPCS: 99212 ==

== ENCOUNTER 2025-06-10 11:15 | Outpatient (AMB) | payer MEDICARE, SELFPAY ==
--- NOTE | 2025-06-10 11:40 | A.OFFVIS_ITS ---
Vital Signs 06/10/25 12:04 Height 5 ft 10 in Weight 220 lb BMI 31.6 Intake Visit Reasons: INJ- B/L Knee Durolane Injection Intake Note: Mohamud is a 85 year old male who presents with complaints of bilateral knee pains. He describes his pains as sharp in nature. He has failed the last 3 months of conservative treatment. He wishes to hold off on surgery if at all possible. Allergies morphine (MORPHINE) Allergy (Severe, Verified 06/10/25 12:04) CONFUSION oxycodone (OXYCODONE) Allergy (Severe, Verified 06/10/25 12:04) CONFUSION hydrochlorothiazide (Hydrochlorothiazide) Allergy (Mild, Verified 06/10/25 12:04) MUSCLE CRAMPS, leg cramps lisinopril (From Zestril) Allergy (Mild, Verified 06/10/25 12:04) COUGH amlodipine (From Norvasc) Adverse Reaction (Mild, Verified 06/10/25 12:04) DIZZINESS irbesartan (From Avapro) Adverse Reaction (Mild, Verified 06/10/25 12:04) DIZZINESS Medication List - Last Reconciled 06/10/25 by Raad Mills MD aspirin 81 mg PO DAILY cranberry extract 405 mg PO DAILY diclofenac sodium 1% 2 grams topical QID finasteride 5 mg PO DAILY losartan 25 mg PO DAILY PRN 30 days metoprolol succinate ER 150 mg (1.5 x 100 mg) PO BID 90 days pantoprazole 40 mg PO DAILY simvastatin 80 mg PO BEDTIME tamsulosin 0.8 mg (2 x 0.4 mg) PO DAILY [facility] Medical History UTI (urinary tract infection) High cholesterol CAD (coronary artery disease) BPH (benign prostatic hyperplasia) Surgical History S/P triple vessel bypass Social History Household Members: Spouse Housing: House Do you presently have visiting nurse or other home services: No Alcohol intake: current Alcohol intake frequency: holidays/special occasions only Patient Tobacco Use Status: Never used Tobacco e-Cigarette/Vaping Use: Never Used Second Hand Smoke Exposure: No service: No Current occupational status: retired and disabled Current occupational exposures/hazards: No Cognitive needs: No Hearing needs: No Vision needs: Yes (Glasses) Physical Exam Vital Signs: BMI result Body Mass Index 31.6 Const Other: Well-nourished well-developed very friendly male awake alert and oriented x3 in no acute distress Extrem Other: Bilateral knee examination shows minimal effusions, palpable crepitus with range of motion, pain with range of motion, no instability Office Procedures AMB Joint Injection/Aspiration Joint Injection/Aspiration Primary Site: right knee Prep: site was prepped using aseptic technique Injected: 60 mg of (Durolane viscosupplementation), with 4 mL of and 1% plain lidocaine Procedure: The patient tolerated the procedure well Coding 23412 - Large joint Procedure code (CPT) selection complete AMB Joint Injection/Aspiration Joint Injection/Aspiration Primary Site: left knee Prep: site was prepped using aseptic technique Injected: 60 mg of (Durolane viscosupplementation), with 4 mL of and 1% plain lidocaine Procedure: The patient tolerated the procedure well Coding 93766 - Large joint Procedure code (CPT) selection complete Results Reviewed Results Reviewed: X-rays of the patient's bilateral knees taken previously show joint space narrowing, subchondral sclerosis, no acute bony abnormalities Assessment & Plan Assessment & Plan (1) Osteoarthritis of left knee: Code(s): M17.12 - Unilateral primary osteoarthritis, left knee Category: Medical (2) Osteoarthritis of right knee: Code(s): M17.11 - Unilateral primary osteoarthritis, right knee Category: Medical Plan Mr. Blakely presents with bilateral knee pains due to osteoarthritis. The risks and benefits of bilateral knee Durolane viscosupplementation injections were discussed at length with the patient. The patient wished to proceed. He tolerated the injections well. He will continue with his home exercise program. He will contact me prior to his follow-up appointment in 3 months should any questions or concerns arise. Feel free to call me at any time should questions regarding his orthopedic management arise. I spent 22 minutes in reviewing the patient's records and imaging studies, seeing the patient and documenting in the medical record. Orders: Orders AMB Joint Injection/Aspiration Today M17.12 - Unilateral primary osteoarthritis, left knee AMB Joint Injection/Aspiration Today M17.11 - Unilateral primary osteoarthritis, right knee Coding Level of Care Code Est Pt Level 3 (53630) Complex EM visit Add On G2211 Diagnoses Osteoarthritis of left knee M17.12 Osteoarthritis of right knee M17.11 CPT Codes Coding - 75437 Large joint: 90681 - Large joint ([id number]) Coding - 75870 Large joint: 78596 - Large joint ([id number])
[2025-06-10 12:04] VITALS: BMI 31.6
== END 2025-06-10 12:25 | disposition home or self-care (01) ==
LOC: HO.HOS 11:15
PROVIDERS: PCP Family Medicine; Visit Provider Orthopaedic Surgery
DX: M17.0 Bilateral primary osteoarthritis of knee (principal)
CPT/HCPCS: 20610; 99213

== ENCOUNTER → 2025-06-10 11:15 | Outpatient (BNVA) | payer MEDICARE, SELFPAY | PROVIDERS: PCP Family Medicine; Visit Provider Orthopaedic Surgery | DX: M17.0 Bilateral primary osteoarthritis of knee (principal); M25.562 Pain in left knee; M25.561 Pain in right knee | CPT/HCPCS: 20610; 99212; J2003; J7318 ==

== ENCOUNTER 2025-07-23 08:44 | Outpatient (AMB) | payer MEDICARE, SELFPAY ==
--- NOTE | 2025-07-23 08:47 | A.OFFPC_ITS ---
Vital Signs 07/23/25 08:58 07/23/25 09:18 Height 5 ft 10 in Weight 225 lb BMI 32.3 BP 183/71 H 140/86 H Blood Pressure Location Lt brachial Rt brachial Position Sitting Sitting Respiration 16 Pulse 63 Pulse Source Pulse Oximeter Temp 97.6 F Temp Source Oral Pulse Oximetry (%) 98 Oxygen Delivery Method Room Air Intake Visit Reasons: Annual Wellness Intake Note: patient here for CPE Block Breaker Operator Required: No Allergies morphine (MORPHINE) Allergy (Severe, Verified 07/23/25 08:56) CONFUSION oxycodone (OXYCODONE) Allergy (Severe, Verified 07/23/25 08:56) CONFUSION hydrochlorothiazide (Hydrochlorothiazide) Allergy (Mild, Verified 07/23/25 08:56) MUSCLE CRAMPS, leg cramps lisinopril (From Zestril) Allergy (Mild, Verified 07/23/25 08:56) COUGH amlodipine (From Norvasc) Adverse Reaction (Mild, Verified 07/23/25 08:56) DIZZINESS irbesartan (From Avapro) Adverse Reaction (Mild, Verified 07/23/25 08:56) DIZZINESS Medication List - Last Reconciled 07/23/25 by Yfn Tran MD aspirin 81 mg PO DAILY cranberry extract 405 mg PO DAILY finasteride 5 mg PO DAILY losartan 25 mg PO DAILY PRN 30 days metoprolol succinate ER 150 mg (1.5 x 100 mg) PO BID 90 days pantoprazole 40 mg PO DAILY simvastatin 80 mg PO BEDTIME tamsulosin 0.8 mg (2 x 0.4 mg) PO DAILY Tobacco use date assessed: 07/23/25 Fall risk assessment: 2 + Falls in past year Last assessed Fall Risk: 07/23/25 Dental Screening Dental Screen Date: 07/23/25 Did you have a dental visit in the last 12 months?: Yes Did you have a dental problem in the last 6 months where you did not have access to dental care?: No Was dental information given to patient?: Patient has dentist HPI Annual Wellness HPI Details 85 y/o male presents for an extended exa m with f/u labs and health maint. No recent labs to review. Blood pressure today 183/71, 63p. He is on losartan 25mg, metoprolol 150mg b.i.d. Hx of white coat syndrome. [facility] Medical History UTI (urinary tract infection) High cholesterol CAD (coronary artery disease) BPH (benign prostatic hyperplasia) Surgical History S/P triple vessel bypass Social History Household Members: Spouse Housing: House Do you presently have visiting nurse or other home services: No Alcohol intake: current Alcohol intake frequency: holidays/special occasions only Patient Tobacco Use Status: Never used Tobacco e-Cigarette/Vaping Use: Never Used Second Hand Smoke Exposure: No service: No Current occupational status: retired and disabled Current occupational exposures/hazards: No Cognitive needs: No Hearing needs: No Vision needs: Yes (Glasses) Questionnaire PHQ-9 Over the last 2 weeks, how often have you been bothered by any of the following problems? 1. Little interest or pleasure in doing things: not at all 2. Feeling down, depressed, or hopeless: not at all 3. Trouble falling or staying asleep, or sleeping too much: not at all 4. Feeling tired or having little energy: not at all 5. Poor appetite or overeating: not at all 6. Feeling bad about yourself - or that you are a failure or have let yourself or your family down: not at all 7. Trouble concentrating on things, such as reading the newspaper or watching television: not at all 8. Moving or speaking so slowly that other people could have noticed. Or the opposite - being so fidgety or restless that you have been moving around a lot more than usual: not at all 9. Thoughts that you would be better off or of hurting yourself in some way: not at all Total score: 0 Depression Screening Interpretation: Negative Depression Screening Done: Yes 70306 - PHQ-9 Billing: Yes Source: Developed by Drs. Dewayne Eden, Drea Delgado, Pierce Cao and colleagues, with an educational pj from [employer]. Thrive Questionnaire Date Thrive assessed: 07/23/25 I am a: Patient What is your living situation today?: I have a steady place to live Within the past 12 months, did the food you bought not last and you didn't have the money to get more?: Never true Within the past 12 months, did you worry whether your food would run out before you got money to buy more?: Never true Do you have trouble paying for medicines?: No Do you have trouble getting transportation to medical appointments?: No Do you have trouble paying your heating and electricity bill?: No Do you have trouble taking care of your child, family member or friend?: No Do you have trouble with day-to-day activities such as bathing, preparing meals, shopping, managing finances, etc.?: No Are you currently unemployed and looking for a job?: No Are you interested in more education?: No Please select the resources that you would like help with: None Currently or been in a relationship where the following occur: No concerns reported THRIVE Score: 0 AUDIT C Alcohol Use Questionnaire (AUDIT-C) 1. How often do you have a drink containing alcohol?: Never 3. How often do you have six or more drinks on one occasion?: Never Total Score: 0 Score Reviewed/Action Taken: Yes SHAYLEE-7 AMB Questionnaire SHAYLEE-7 Date SHAYLEE - 7 assessed: 07/23/25 Feeling nervous, anxious, or on edge: 0 = Not at all Not being able to stop or control worryin = Not at all Worrying too much about different things: 0 = Not at all Trouble relaxin = Not at all Being so restless that it is hard to sit still: 0 = Not at all Becoming easily annoyed or irritable: 0 = Not at all Feeling afraid as if something awful might happen: 0 = Not at all Total SHAYLEE-7 score (0-4 normal; 5-9 mild; 10-14 moderate; 15-21 severe): 0 Source: Developed by Drs. Dewayne Eden, Drea Delgado, Pierce Cao and colleagues, with an educational pj from [employer]. SHAYLEE-7 Assessment Billing SHAYLEE-7 Assessment Tool: SHAYLEE-7 Assessment 08023 Review of Systems Const Denies chills, Denies fatigue, Denies fever(s), Denies headache(s) and Denies weakness Eyes Denies change in vision ENT Denies dizziness, Denies headache(s), Denies hearing loss, Denies nasal congestion, Denies sinus pain, Denies sinus pressure and Denies sore throat Card Denies chest pain, Denies lightheadedness, Denies dyspnea and Denies other (palpitations) Resp Denies cough, Denies dyspnea and Denies wheezing GI Denies abdominal pain, Denies melena, Denies hematochezia, Denies change in bowel habits, Denies dyspepsia and Denies nausea Denies hematuria and Denies dysuria Musc Denies abnormal gait, Denies myalgias, Denies arthralgias, Denies numbness and Denies tingling Skin/Breast Denies rash, Denies unusual bruising and Denies wounds Neuro Denies abnormal gait, Denies dizziness, Denies headache(s), Denies memory loss, Denies numbness, Denies Sensory deficit (Neuro), Denies tingling and Denies weakness Psych Denies anxiety, Denies depression and Denies memory loss Endo Denies cold intolerance, Denies fatigue, Denies heat intolerance, Denies polydipsia and Denies polyuria Tod/Lymph Denies easy bleeding and Denies easy bruising Aller/Immun Denies wheezing Physical exam (Primary Care) Vital Signs: Last Vital Signs Temp 97.6 F 07/23/25 08:58 Pulse 63 07/23/25 08:58 Resp 16 07/23/25 08:58 BP 140/86 H 07/23/25 09:18 Pulse Ox 98 07/23/25 08:58 Oxygen Delivery Method Room Air 07/23/25 08:58 BMI result Body Mass Index 32.3 Tobacco/Smoking Status: Tobacco use Status Tobacco use date assessed 07/23/25 07/23/25 09:07 Patient Tobacco Use Status Never used Tobacco 07/23/25 08:48 e-Cigarette/Vaping Use Never Used 07/23/25 08:48 PHQ-9: PHQ-9 Score PHQ-9: Total score 0 07/23/25 09:22 Depression Screening Interpretation: Negative Thrive Assessment: Date of Thrive Assessment Date Thrive assessed 07/23/25 07/23/25 09:16 Currently or been in a relationship where the following occur: No concerns reported Const General: no acute distress, well developed, alert and awake Nutritional Appearance: well nourished Orientation/consciousness: patient oriented x3 HENMT Head: Yes normocephalic and Yes atraumatic Ears: hearing grossly normal bilaterally and TM's normal bilaterally General nose exam: Normal external nose present and Normal nares present Mouth: Normal oral and palatal mucosa present and moist mucous membranes Teeth and gingiva: dentition normal Throat: Yes posterior oropharynx normal Eyes General: appearance normal, both eyes and all related structures Pupils: Equal, round and reactive pupils present and Pupil accommodation reflex normal EOM: EOMs intact bilaterally Neck Neck: Yes normal visual inspection, Yes no lymphadenopathy and Yes trachea midline Thyroid: Thyroid normal Carotids: no bruits Lymphatic: no lymphadenopathy noted Chest Chest palpation & inspection: normal inspection of the chest Resp Effort & Inspection: normal respiratory effort Auscultation: clear to auscultation bilaterally Cardio Rate: regular rate Rhythm: regular rhythm Heart sounds: S1 normal heart sound present, S2 normal heart sound present, no gallops, no murmurs and no rubs Bruits: no abdominal aortic bruits and no carotid bruits GI Palpation (GI): No Abdominal aortic bruit present, Soft to palpation, nontender, No hepatosplenomegaly present and No Rebound tenderness present Auscultation: normal bowel sounds General: Yes no CVA tenderness Back/Spine/Pelvis Back: no CVA tenderness Cervical Spine: cervical ROM normal and No Cervical spine tenderness Thoracic/Lumbar Spine: thoraco-lumbar ROM normal, No pain with thoraco-lumbar ROM, No thoracic spinal tenderness and No lumbar spinal tenderness Skin Lesions: no lesions Rashes: no rashes Trauma: no lacerations or abrasions Wounds: no wounds Nails: normal Neuro General: patient oriented x3 Cranial nerves: Yes Equal, round and reactive pupils present Cognition (Neuro): normal cognition Gait exam (Neuro): Normal gait present Motor exam (neuro): 5/5 motor strength present throughout Sensory Exam: No Sensory deficit (Neuro) Deep tendon reflexes (DTR's): Right patellar reflex intensity grade: 2+ and Left patellar reflex intensity grade: 2+ Extrem General: Yes normal to inspection and No edema Psych Appearance: grossly normal Affect: normal affect Attitude: cooperative Thought process: Normal thought process present Coding Level of Care Code Est Pt Level 4 (46946) Diagnoses White coat syndrome with diagnosis of hypertension I10 Osteoarthritis of knees, bilateral M17.0 CAD (coronary artery disease) I25.10 Adult general medical exam Z00.00 Additional Codes SHAYLEE-7 Assessment Billing - SHAYLEE-7 Assessment Tool: SHAYLEE-7 Assessment 26359 ([id number]) PHQ-9 - 65195 - PHQ-9 Billing: Yes ([id number]) Assessment & Plan Assessment & Plan (1) White coat syndrome with diagnosis of hypertension: Code(s): I10 - Essential (primary) hypertension Category: Medical Plan: Blood pressure is elevated in office. He notes sometimes a little elevated at home as well Has losartan available for elevated blood pressures at home He can check throughout his day and take losartan up to b.i.d. for SBP greater than 140 Otherwise continue current medication regimen (2) Osteoarthritis of knees, bilateral: Code(s): M17.0 - Bilateral primary osteoarthritis of knee Category: Medical Plan: S/p knee injection therapy Patient essentially pain-free now and moving easily. Does have a cane to help with steadiness Declines physical therapy but agrees to perform exercises at home and we discussed and I demonstrated some of these. (3) CAD (coronary artery disease): Code(s): I25.10 - Atherosclerotic heart disease of [place] coronary artery without angina pectoris Category: Medical Plan: Stable Continue blood pressure control and cholesterol control (4) Adult general medical exam: Code(s): Z00.00 - Encounter for general adult medical examination without abnormal findings Category: Medical Plan: 85-year-old male presents for an extended exam Encouraged healthy diet with active lifestyle and exercise Medications: Changed From losartan 25 mg PO DAILY 30 days PRN 30 tabs 1RF SBP > 140 mmHg I10 - Essential (primary) hypertension To losartan 25 mg PO BID 30 days PRN 30 tabs 1RF SBP > 140 mmHg I10 - Essential (primary) hypertension Refilled losartan 25 mg PO BID PRN 60 tabs 1RF SBP > 140 mmHg 30 days I10 - Essential (primary) hypertension
[2025-07-23 08:58] VITALS: BP 183/71; PULSE 63; RESP 16; TEMP 36.4; O2SAT 98; BMI 32.3
--- OUTSIDE RECORDS SUMMARY | 2025-07-23 09:08 | XMS_ITS | Patient Health Record ---
Author Organization [facility] Address [address] [place] [id number] Care Team Providers Care Grape Pruner Name Role Phone Yfn Tran Primary Care Provider UnavailAlan Friedman Jr Unavailable Allergies Allergen (clinical drug ingredient) Drug/Non Drug Allergy documented on EMR Reaction Allergy Type Onset Date Status Aleve Unknown Drug Allergy Active irbesartan Avapro Unknown Drug Allergy Active hydrochlorothiazide Hydrochlorothiazide Unknown Drug Aller gy Active nitrofurantoin Macrodantin Unknown Drug Allergy Active naproxen Naprosyn Unknown Drug Allergy Active amlodipine Norvasc Unknown Drug Allergy Active lisinopril Zestril Unknown Drug Allergy Active Reason For Referral No Information Medications Medication SIG (Take, Route, Frequency, Duration) Notes Start Date End Date Status Tamsulosin HCl 0.4 MG Capsule 1 capsule 30 minutes after the same meal each day Orally Once a day Active Metoprolol Succinate ER 100 MG Tablet Extended Release 24 Hour Oral; Duration: 90 Active Centrum Silver 50+Men - Tablet 1 Orally QD Active Probiotic 250 MG Capsule 1 capsule Orall y once a day Active Metoprolol Tartrate 100 MG Tablet 1 1/2 tablet with food Orally Twice a day Active Finasteride 5 MG Tablet Oral; Duration: 90 Active Simvastatin 80 MG Tablet 1 tablet in the evening Orally Once a day Active Pantoprazole Sodium 40 MG Tablet Delayed Release TAKE 1 TABLET BY MOUTH EVERY DAY; Duration: 90 Active Aspirin 81 MG Tablet Chewable 1 tablet Orally Once a day Active Immunizations Vaccine Route Administration Date Status Comme nts Flu vaccine no Preserv 3 and > Unknown 04/11/2017 Admin istered Influenza Unknown 06/07/2019 Administered Influenza Unknown 06/28/2022 Administered Influenza Unknown 06/20/2023 Administered Influenza Unknown 05/21/2024 Administered Social History Tobacco Use: Social History Observation Description Date Details (start date - stop date) Former Smoker NA - NA Social History Drugs/Alcohol: Social Info Question Answer Notes Alcohol Screen Did you have a drink containing alcohol in the past year? Yes How often did you have a drink containing alcohol in the past year? Monthly or less (1 point) How many drinks did you have on a typical day when you were drinking in the past year? 1 or 2 drinks (0 point) How often did you have 6 or more drinks on one occasion in the past year? Never (0 point) Points 1 Interpretation Negative Tobacco Use: Social Info Question Answer Notes Tobacco Use/Smoking Patient is a former smoker When did you stop smoking? 35 years ago Additional Details Category Social Info Options Details Miscellaneous: Marital status: Occupation: retired Problems Problem Type SNOMED Code ICD Code Onset Dates Problem Status W/U Status Risk Notes Problem Colon cancer screening (830115065) Colon cancer screening (Z12.11) Active confirmed Problem Gastroesophageal reflux disease without esophagitis (859473075) Gastroesophageal reflux disease without esophagitis (K21.9) Active confirmed Problem Essential hypertension (07741176) Hypertension, unspecified type (I10) Active confirmed Vital Signs Temperature 97.1 degrees Fahrenheit 01/20/2025 Blood pressure diastolic 01 mm Hg 01/20/2025 Height 70 in 01/20/2025 Blood pressure systolic 001 mm Hg 01/20/2025 Weight 222 lbs 01/20/2025 BMI 31.85 kg/m2 01/20/2025 Encounters Encounter Location Date Provider Diagnosis [facility] [address] [facility] [address] [place] [id number] 01/20/2025 Alan Kenney Jr Gastroesophageal reflux disease [...] Of Treatment Next Appt Details Provider Name:Alan Isis castanon Jr, 01/21/2026 09:40:00 AM, [address], [address], [place], [address], Insurance Providers Payer Name Payer Address Payer Phone Subscriber Number Group Number Insured Name Patient Relationship to Insured Coverage Start Date Coverage End Date MEDICARE OF [place] [address] [facility] [place] [address] [id number] ALIREZA GAYTAN Self - patient is the insured [employer] CLAIMS [address] [place] [phone] [id number] ALIREZA GAYTAN Self - patient is the insured Medical (General) History Medical History History ICD Code Hyperlipidemia hypertension BPH Gastroesophageal reflux dise ase, EGD 08/18, and no H. pylori or Gaytan's esophagus Coronary artery disease, [place] 06/14 Chronic kidney disease stage III Colonoscopy 08/18, cecal tubular adenoma, followup optional based on age Surgical History Surgery Date(Month/Year) hemorrhoidectomy CABG x3 2007 cholecystectomy cystoscopy 12/2013 Hospitalization History Reason Date(Month/Year) fall
[2025-07-23 09:18] VITALS: BP 140/86
== END 2025-07-23 11:47 | disposition home or self-care (01) ==
PROVIDERS: PCP Family Medicine; Visit Provider Family Medicine
DX: I10 Essential (primary) hypertension (principal); M17.0 Bilateral primary osteoarthritis of knee; I25.10 Atherosclerotic heart disease of native coronary artery without angina pectoris; Z00.00 Encounter for general adult medical examination without abnormal findings

== ENCOUNTER → 2025-07-23 08:44 | Outpatient (BNVA) | payer MEDICARE, SELFPAY | PROVIDERS: PCP Family Medicine; Visit Provider Family Medicine | DX: I10 Essential (primary) hypertension (principal); M17.0 Bilateral primary osteoarthritis of knee; I25.10 Atherosclerotic heart disease of native coronary artery without angina pectoris; Z13.31 Encounter for screening for depression; Z13.39 Encounter for screening examination for other mental health and behavioral disorders; Z79.899 Other long term (current) drug therapy | CPT/HCPCS: 96127; 99212 ==